=== PATIENT | male | born 1935 | race Caucasian/White ===

== ENCOUNTER 2016-10-23 18:26 | Emergency (ER) | payer OTHER, MEDICARE ==
[2016-10-23 18:57] LABS: ABSOLUTE BASOPHILS # (AUTO) 0.1 10^3/uL (0.0-0.2); ABSOLUTE EOSINOPHILS # (AUTO) 0.2 10^3/uL (0.0-0.6); ABSOLUTE LYMPHOCYTES (AUTO) 3.1 10^3/uL (0.5-4.7); ABSOLUTE MONOCYTES (AUTO) 0.5 10^3/uL (0.1-1.4); ABSOLUTE NEUT (AUTO) 2.1 10^3/uL (1.7-8.2); BASOPHILS % (AUTO) 0.9 % (0-2); EOSINOPHILS % (AUTO) 3.5 % (0-6); HEMATOCRIT 38.5 % (37.9-51.0); HEMOGLOBIN 13.2 g/dL (13.5-17.0); HGB HCT DIFFERENCE 1.1; LYMPHOCYTES % (AUTO) 52.7 % (13-45); MEAN CORPUSCULAR HEMOGLOBIN 36.9 pg (27.0-33.4); MEAN CORPUSCULAR HGB CONC 34.3 g/dL (32.0-36.0); MEAN CORPUSCULAR VOLUME 108 fl (80-97); MONOCYTES % (AUTO) 7.9 % (3-13); RED BLOOD COUNT 3.57 10^6/uL (4.35-5.55); RED CELL DISTRIBUTION WIDTH 15.9 % (11.5-14.0); WHITE BLOOD COUNT 5.9 10^3/uL (4.0-10.5)
[2016-10-23 19:10] LABS: ALANINE AMINOTRANSFERASE 18 U/L (21-72); ALBUMIN 3.4 g/dL (3.5-5.0); ALKALINE PHOSPHATASE 70 U/L (38-126); ANION GAP 11 (5-19); ASPARTATE AMINO TRANSFERASE 18 U/L (17-59); BILIRUBIN,TOTAL 0.3 mg/dL (0.2-1.3); BLOOD UREA NITROGEN 21 mg/dL (7-20); CALCIUM 8.6 mg/dL (8.4-10.2); CARBON DIOXIDE 22 mmol/L (22-30); CHLORIDE 114 mmol/L (98-107); CREATININE RESULT 1.02 mg/dL (0.52-1.25); GLUCOSE 90 mg/dL (75-110); LIPASE 209.7 U/L (23-300); SODIUM 146.6 mmol/L (137-145)
[2016-10-23 21:00] LABS: APPEARANCE,URINE CLEAR; BILIRUBIN,URINE NEGATIVE (NEGATIVE); GLUCOSE, URINE NEGATIVE (NEGATIVE); KETONES,URINE NEGATIVE (NEGATIVE); LEUKOCYTE ESTERASE,URINE NEGATIVE (NEGATIVE); NITRITE,URINE NEGATIVE (NEGATIVE); PROTEIN,URINE NEGATIVE (NEGATIVE); URINE SPECIFIC GRAVITY 1.013
[2016-10-23] MEDS ORDERED: NORMAL SALINE 1000 ML 1,000 ML IV ONE (21:09)
--- NOTE | 2016-10-23 21:15 | ER Document Report ---
ED General - General Chief Complaint: Abdominal Pain Stated Complaint: WEAKNESS Notes: Patient is an 81-year-old male with past medical history of prior GI bleeds, hypertension, hyperlipidemia, COPD who presents by EMS with concerns of generalized weakness. Patient himself states "I don't know why the hell I am here. I feel totally fine and want to get out of here". He states that he has had dark stools for the past 1 month and that this is not new or different today. States he may have felt slightly weak earlier today but that this did resolve spontaneously. Nothing worsens the symptoms. He denies any chest pain , shortness of breath, nausea, vomiting, abdominal pain, headache or neck pain. He has not seen his primary care doctor regarding today's concerns. TRAVEL OUTSIDE OF THE [place] IN LAST 30 DAYS: No - Related Data Allergies/Adverse Reactions: No Known Allergies Allergy (Verified 10/23/16 18:43) Past Medical History - General Information source: Patient - Social History Smoking Status: Former Smoker Chew tobacco use (# tins/day): No Frequency of alcohol use: Occasional Drug Abuse: None Lives with: Family Family History: Reviewed & Not Pertinent Patient has suicidal ideation: No Patient has homicidal ideation: No - Past Medical History Cardiac Medical History: Reports: Hx DVT - LLE, Hx Heart Attack, Hx Hypertension Neurological Medical History: Reports: Hx Cerebrovascular Accident Renal/ Medical History: Denies: Hx Peritoneal Dialysis Musculoskeltal Medical History: Reports Hx Arthritis Psychiatric Medical History: Denies: Hx Depression Past Surgical History: Reports: Hx Abdominal Surgery, Hx Cardiac Surgery - Cardiac Stent, Hx Open Heart Surgery, Hx Orthopedic Surgery - Immunizations Hx Diphtheria, Pertussis, Tetanus Vaccination: Yes - Unknown Review of Systems - Review of Systems Notes: Constitutional: Negative for fever. HENT: Negative for sore throat. Eyes: Negative for visual changes. Cardiovascular: Negative for chest pain. Respiratory: Negative for shortness of breath. Gastrointestinal: Negative for abdominal pain, vomiting or diarrhea. Genitourinary: Negative for dysuria. Musculoskeletal: Negative for back pain. Skin: Negative for rash. Neurological: Negative for headaches, weakness or numbness. 10 point ROS negative except as marked above and in HPI. Physical Exam - Vital signs Vitals: Temp Resp BP 97.7 F 97 H 122/68 10/23/16 18:30 10/23/16 18:30 10/23/16 18:30 Interpretation: Normal Notes: PHYSICAL EXAMINATION: GENERAL: Well-appearing, well-nourished and in no acute distress. HEAD: Atraumatic, normocephalic. EYES: Pupils equal round and reactive to light, extraocular movements intact, sclera anicteric, conjunctiva are normal. ENT: nares patent, oropharynx clear without exudates. Moist mucous membranes. NECK: Normal range of motion, supple without lymphadenopathy LUNGS: Breath sounds clear to auscultation bilaterally and equal. No wheezes rales or rhonchi. HEART: Regular rate and rhythm without murmurs ABDOMEN: Soft, nontender, normoactive bowel sounds. No guarding, no rebound. No masses appreciated. Rectal: No gross blood or melena EXTREMITIES: Normal range of motion, no pitting or edema. No cyanosis. NEUROLOGICAL: Face symmetric. Tongue protrudes midline. Extraocular motions intact. Pupils are 2 mm and equally reactive. Normal speech, normal gait. 5 out of 5 strength in both the distal and proximal upper and lower extremities bilaterally. Sensation is grossly intact throughout. Finger to nose testing normal. Pronator drift normal. PSYCH: Normal mood, normal affect. SKIN: Warm, Dry, normal turgor, no rashes or lesions noted. Course - Re-evaluation Re-evalutation: 10/23/16 21:11 Patient presents with concerns of generalized weakness and dark stool that he states been ongoing for more than a month. Patient himself has very jovial during exam stating "I don't want to be here and I am mad as hell that my son called 911". Patient himself states that he feels completely fine at this time and denies any complaints. States the black stools are not new today. His son contacted him on his cell phone and I did speak to him at length. The son gives a report of the patient having left-sided facial droop and apparent left- sided weakness. The patient denies this and states that the son "is a liar and makes things up all the time". The EMS report obtained likewise does not note any focal deficits, facial droop, and states a stroke exam was performed immediately upon their arrival which was negative. This seems to support the patient's report that he just felt a little weak earlier today but feels totally fine at this time. His physical exam including a neurologic exam is unremarkable. His initial laboratories likewise are unremarkable and his hemoglobin is at his baseline. A rectal exam performed at the bedside does not show any melena or hematochezia. Patient's initial blood pressures were noted to have occasional dips in the 90s although here in the emergency department when I checked the blood pressure at the bedside myself with proper positioning of the cuff his pressure was 136 on 96. Patient himself states he does not want stay in the emergency department would like to go home. His medical screening labs today as well as examination and evaluation did not suggest any acute life-threatening diagnosis at this time. I do not suspect ACS , acute pulmonary was, aortic dissection, acute CVA or TIA, or an acute GI bleed based on history and evaluation. At this time will discharge with return precautions and follow-up recommendations. Verbal discharge instructions given a the bedside and opportunity for questions given. Medication warnings reviewed. Patient is in agreement with this plan and has verbalized understanding of return precautions and the need for primary care follow-up in the next 24-72 hours. - Vital Signs Vital signs: Temp Pulse Resp BP Pulse Ox 98.4 F 72 20 124/78 96 10/23/16 22:47 10/23/16 22:47 10/23/16 22:47 10/23/16 22:47 10/23/16 22:47 - Laboratory Result Diagrams: 10/23/16 18:41 10/23/16 18:41 Laboratory results interpreted by me: 10/23/16 10/23/16 10/23/16 18:41 18:41 20:35 RBC 3.57 L Hgb 13.2 L MCV 108 H MCH 36.9 H RDW 15.9 H Plt Count 125 L Seg Neutrophils % 35.0 L Lymphocytes % 52.7 H Sodium 146.6 H Chloride 114 H BUN 21 H ALT 18 L Total Protein 6.0 L Albumin 3.4 L Urine Blood SMALL H Urine Urobilinogen 2.0 H Discharge - Discharge Clinical Impression: Generalized weakness Condition: Good Disposition: HOME, SELF-CARE Additional Instructions: You were seen today for generalized weakness. All of your labs today are normal including a blood count. Your stool does not contain any blood. Your symptoms today based on the EMS report and your evaluation are not consistent with a stroke or a mini stroke. Please follow-up with your primary care doctor to earliest ability. Return if you have any new or worsening symptoms that are worrisome to you including weakness, numbness, passing out, chest pain or shortness of breath. Referrals: TANYA LY MD [Primary Care Provider] - Follow up tomorrow
[2016-10-23 22:49] VITALS: BP 124/78
== END 2016-10-23 22:52 | disposition home or self-care (01) ==
LOC: ER 18:26
DX: R53.1 Weakness (principal); R10.9 Unspecified abdominal pain; E78.5 Hyperlipidemia, unspecified; I10 Essential (primary) hypertension; J44.9 Chronic obstructive pulmonary disease, unspecified; Z87.891 Personal history of nicotine dependence
CPT/HCPCS: 99285; 96360; 36415; 83690; 85025; 82272; 80053; 81001; J7030

== ENCOUNTER 2016-11-23 19:11 | Inpatient (IN) | payer OTHER, MEDICARE ==
[2016-11-23] MEDS ORDERED: NORMAL SALINE 1000 ML 1,000 ML IV ONE (19:46)
[2016-11-23] MEDS ORDERED: IPRATROPIUM/ALBUTEROL 0.5-2.5 MG/3 ML AMPUL NEB ONE ×2 (19:55→22:12)
--- NOTE | 2016-11-23 20:05 | ER Document Report ---
ED General - General Mode of Arrival: Medic Information source: Patient TRAVEL OUTSIDE OF THE [place] IN LAST 30 DAYS: No - HPI Patient complains to provider of: unwell Onset: This afternoon Associated symptoms: Other - See above <SHAI SALAS - Last Filed: 11/23/16 23:11> <MARIELENA MENDEZ - Last Filed: 11/24/16 03:30> - General Chief Complaint: Other Stated Complaint: DOESN'T FEEL WELL Notes: Patient is an 81 year old male who presents to the emergency department via EMS after feeling unwell earlier today. Patient reports that he doesn't really know why he is here and that he has no complaints of pain. Patient states that he has had a cough and has pain when he urinates. Patient denies loss of consciousness, fever, chest pain, and shortness of breath. Patient also states that he has not had a flu shot or pneumonia vaccine this year. EMS report patient's blood pressure was at 80/48 en route. (SHAI SALAS) - Related Data Allergies/Adverse Reactions: No Known Allergies Allergy (Verified 10/23/16 18:43) Past Medical History - General Information source: Patient - Social History Smoking Status: Current Some Day Smoker - cigars Family History: Reviewed & Not Pertinent - Past Medical History Cardiac Medical History: Reports: Hx DVT - LLE, Hx Heart Attack, Hx Hypertension Neurological Medical History: Reports: Hx Cerebrovascular Accident Musculoskeltal Medical History: Reports Hx Arthritis Past Surgical History: Reports: Hx Abdominal Surgery, Hx Cardiac Surgery - Cardiac Stent, Hx Open Heart Surgery, Hx Orthopedic Surgery - Immunizations Hx Diphtheria, Pertussis, Tetanus Vaccination: Yes - Unknown <SHAI SALAS - Last Filed: 11/23/16 23:11> Review of Systems - Review of Systems Constitutional: denies: Fever EENT: No symptoms reported Cardiovascular: denies: Chest pain Respiratory: See HPI, Cough. denies: Short of breath Gastrointestinal: No symptoms reported Genitourinary: See HPI, Dysuria Male Genitourinary: No symptoms reported Musculoskeletal: No symptoms reported Skin: No symptoms reported Hematologic/Lymphatic: No symptoms reported Neurological/Psychological: denies: Lost consciousness -: Yes All other systems reviewed and negative <SHAI SALAS - Last Filed: 11/23/16 23:11> Physical Exam - General General appearance: Appears well, Alert, Other - Smells of EtOH - HEENT Head: Normocephalic, Atraumatic - Respiratory Respiratory status: No respiratory distress Chest status: Nontender Breath sounds: Decreased air movement - at bases bilaterally, Wheezing Chest palpation: Normal - Cardiovascular Rhythm: Regular Heart sounds: Normal auscultation Murmur: No - Back Back: Normal, Nontender - Extremities General upper extremity: Normal inspection General lower extremity: Normal inspection - Neurological Neuro grossly intact: Yes Cognition: Normal Orientation: AAOx4 Mary Coma Scale Eye Opening: Spontaneous Mary Coma Scale Verbal: Oriented [place] Coma Scale Motor: Obeys Commands Mary Coma Scale Total: 15 Speech: Normal - Psychological Associated symptoms: Normal affect, Normal mood - Skin Skin Temperature: Warm Skin Moisture: Dry Skin Color: Normal <SHAI SALAS - Last Filed: 11/23/16 23:11> Course - Laboratory Result Diagrams: 11/23/16 21:00 11/23/16 21:00 - Consults Hospitalist Time consulted: 23:09 - Discussed admission of patient with <SHAI SALAS - Last Filed: 11/23/16 23:11> - Laboratory Result Diagrams: 11/23/16 21:00 11/23/16 21:00 - Diagnostic Test Radiology reviewed: Reports reviewed - EKG Interpretation by Me Rate: Normal Rhythm: NSR <MARIELENA MENDEZ - Last Filed: 11/24/16 03:30> - Re-evaluation Re-evalutation: 11/23/16 Patient with no history of COPD or asthma presents with cough, wheezing, and hypotension. Symptoms and exam are consistent with pneumonia. Patient will be admitted and started on antibiotics. Has responded well to fluids, DuoNeb, and Solu-Medrol; however the patient cannot go home at this time because of orthostatic hypotension. Understands agrees with plan. Stable time of admission. (MARIELENA MENDEZ) - Vital Signs Vital signs: Temp Pulse Resp BP Pulse Ox 97.5 F 103 H 16 133/69 H 92 11/24/16 01:00 11/23/16 19:17 11/24/16 02:00 11/24/16 02:00 11/24/16 02:00 - Laboratory Laboratory results interpreted by me: 11/23/16 11/23/16 11/23/16 21:00 21:00 21:00 RBC 3.61 L Hgb 13.3 L MCV 108 H MCH 36.8 H RDW 14.4 H Plt Count 117 L Sodium 145.3 H Chloride 111 H Carbon Dioxide 18 L BUN 23 H Glucose 126 H POC Glucose Lactic Acid 4.4 H ALT 19 L Total Protein 6.2 L Urine Urobilinogen 11/23/16 11/23/16 21:17 22:20 RBC Hgb MCV MCH RDW Plt Count Sodium Chloride Carbon Dioxide BUN Glucose POC Glucose 116 H Lactic Acid ALT Total Protein Urine Urobilinogen 2.0 H Critical Care Note - Critical Care Note Total time excluding time spent on procedures (mins): 35 - evaluation and management of hypotension, mild respiratory distress, multiple re-evaluations, coordination of admission <MARIELENA MENDEZ - Last Filed: 11/24/16 03:30> Discharge <SHAI SALAS - Last Filed: 11/23/16 23:11> - Discharge Admitting Provider: [facility] Unit Admitted: [facility] <MARIELENA MENDEZ - Last Filed: 11/24/16 03:30> - Discharge Clinical Impression: Alcohol abuse, Respiratory distress, Bronchospasm Hypotension Qualifiers: Hypotension type: unspecified hypotension type Qualified Code(s): I95.9 - Hypotension, unspecified Pneumonia Qualifiers: Pneumonia type: due to unspecified organism Laterality: bilateral Lung location : lower lobe of lung Qualified Code(s): J18.9 - Pneumonia, unspecified organism Condition: Stable Disposition: ADMITTED INPATIENT Scribe Attestation: 11/24/16 03:30 ` I personally performed the services described in the documentation, reviewed and edited the documentation which was dictated to the scribe in my presence, and it accurately records my words and actions. (MARIELENA MENDEZ) Scribe Documentation - Scribe Written by Morgan:: morgan Kelly, 11/23/162014 acting as scribe for :: Kay <SHAI SALAS - Last Filed: 11/23/16 23:11>
[2016-11-23] MEDS ORDERED: METHYLPREDNISOLONE INJ 125 MG/2 ML SDV IV ONE (21:15)
[2016-11-23 21:21] LABS: ABSOLUTE BASOPHILS # (AUTO) 0.1 10^3/uL (0.0-0.2); ABSOLUTE EOSINOPHILS # (AUTO) 0.1 10^3/uL (0.0-0.6); ABSOLUTE MONOCYTES (AUTO) 0.7 10^3/uL (0.1-1.4); ABSOLUTE NEUT (AUTO) 3.6 10^3/uL (1.7-8.2); BASOPHILS % (AUTO) 0.8 % (0-2); EOSINOPHILS % (AUTO) 1.6 % (0-6); HEMATOCRIT 38.8 % (37.9-51.0); HEMOGLOBIN 13.3 g/dL (13.5-17.0); HGB HCT DIFFERENCE 1.1; LYMPHOCYTES % (AUTO) 40.5 % (13-45); MEAN CORPUSCULAR HEMOGLOBIN 36.8 pg (27.0-33.4); MEAN CORPUSCULAR HGB CONC 34.3 g/dL (32.0-36.0); MEAN CORPUSCULAR VOLUME 108 fl (80-97); MONOCYTES % (AUTO) 8.9 % (3-13); RED BLOOD COUNT 3.61 10^6/uL (4.35-5.55); RED CELL DISTRIBUTION WIDTH 14.4 % (11.5-14.0); SEGMENTED NEUTROPHILS % (AUTO) 48.2 % (42-78); WHITE BLOOD COUNT 7.4 10^3/uL (4.0-10.5)
[2016-11-23 21:42] LABS: ALANINE AMINOTRANSFERASE 19 U/L (21-72); ALBUMIN 3.5 g/dL (3.5-5.0); ALCOHOL 219 mg/dL (NONE DETECTED); ALKALINE PHOSPHATASE 68 U/L (38-126); ANION GAP 16 (5-19); ASPARTATE AMINO TRANSFERASE 21 U/L (17-59); BILIRUBIN,DIRECT 0.2 mg/dL (0.0-0.4); BILIRUBIN,TOTAL 0.3 mg/dL (0.2-1.3); BLOOD UREA NITROGEN 23 mg/dL (7-20); CALCIUM 8.8 mg/dL (8.4-10.2); CARBON DIOXIDE 18 mmol/L (22-30); CHLORIDE 111 mmol/L (98-107); CREATINE KINASE 77 U/L (55-170); CREATININE RESULT 1.12 mg/dL (0.52-1.25); GLUCOSE 126 mg/dL (75-110); POTASSIUM 3.8 mmol/L (3.6-5.0); SODIUM 145.3 mmol/L (137-145); TOTAL PROTEIN 6.2 g/dL (6.3-8.2)
[2016-11-23 21:43] LABS: PROTHROMBIN TIME 13.2 SEC (11.4-15.4)
[2016-11-23 22:05] LABS: CREATINE KINASE MB 1.21 ng/mL (<4.55)
[2016-11-23 22:06] LABS: TROPONIN I < 0.012 ng/mL
[2016-11-23 22:37] LABS: APPEARANCE,URINE SLIGHTLY-CLOUDY; BILIRUBIN,URINE NEGATIVE (NEGATIVE); GLUCOSE, URINE NEGATIVE (NEGATIVE); KETONES,URINE NEGATIVE (NEGATIVE); LEUKOCYTE ESTERASE,URINE NEGATIVE (NEGATIVE); NITRITE,URINE NEGATIVE (NEGATIVE); PROTEIN,URINE NEGATIVE (NEGATIVE); URINE SPECIFIC GRAVITY 1.017
[2016-11-23] MEDS ORDERED: CEFTRIAXONE 1 GM/D5W RTU 50 ML IV ONE (22:47)
[2016-11-23] MEDS ORDERED: AZITHROMYCIN INJ 500 MG VIAL IV ONE (22:47)
[2016-11-23] MEDS ORDERED: FOLIC ACID 1 MG TABLET PO ONE (23:09)
[2016-11-23] MEDS ORDERED: THIAMINE HCL 100 MG TABLET PO ONE (23:09)
[2016-11-24 00:08] LABS: VENOUS BLOOD BASE EXCESS -7.7 mmol/L; VENOUS BLOOD HCO3 18.3 mmol/L (20-32); VENOUS BLOOD PCO2 39.1 mmHg (35-63); VENOUS BLOOD PH 7.29 (7.30-7.42)
[2016-11-24] MEDS ORDERED: LORAZEPAM 1 MG TABLET PO PRN (01:10)
[2016-11-24] MEDS ORDERED: GUAIFENESIN SYRP 200 MG/10 ML UDC PO PRN (01:16)
[2016-11-24] MEDS ORDERED: ALBUTEROL SULFATE 0.083% NEB 2.5 MG/3 ML AMPUL NEB PRN (01:16)
--- NOTE | 2016-11-24 01:44 | PDOC H&P ---
History of Present Illness Admission Date/PCP: 11/23/16 23:18 PCP none Patient complains of: don't feel well History of Present Illness: HEIDI HEREDIA JR is a 81 year old male, long-term cigar smoker, long- term alcohol dependency, long-term noncompliance of medications, underlying coronary artery disease, status post stent implant, with personal history of DVT and pulmonary embolus, along with eczema, easy bruising, arthritis, borderline diabetes mellitus by his description, history of nephrolithiasis, and prior stroke, without residual after effects, who presents to the emergency room for evaluation of above complaint. Patient has been discussed with emergency room physician who evaluated the patient. Patient is oriented only to the fact that he is in a hospital. Did not know which specific hospital. Did not know what year. Was initially hypotensive at the scene, EMS reported a systolic pressure of 80. Has been normotensive since coming here. Denies pain, nausea vomiting, diarrhea or dysuria. However, does describe recent subjective fever, along with a productive cough. Denies any known chronic pulmonary disease such as asthma or COPD. Has not had a flu vaccination this year. Currently resting quietly, without specific complaints.. Laboratory results are listed in [facility] and are reviewed. X-ray summary results are listed below, with full report(s) reviewed. . EKG reviewed. And compared to prior tracing from January 22 of last year. Social history/personal habits: . Lives with stepson. Several cigars a day. fifth of whiskey every week. Denies illicit drug use. Allergies/adverse reactions NKDA. Home medications Home medications initially autopopulated into [employer] may not accurately reflect patient's true medications, dosages, and/or frequencies. Admittedly non-Compliant with medications. Unfortunately, patient uncertain of medications/dosages/frequencies. REVIEW OF SYSTEMS: Constitutional: See history and present illness. Eyes: Wears glasses. ENT: No swallowing problems or complaints. No hearing problems or complaints. Pulmonary: See history and present illness. Cardiovascular: No current complaints, including chest pain. Gastrointestinal: No current complaints, including nausea or vomiting. Skin: No current complaints, including rashes. Hematologic: Easy bruising. Neurologic: No current complaints, including numbness or tingling. Musculoskeletal: Joint pain from arthritis. Psychiatric: No current complaints, including anxiety or depression. Endocrine: No current complaints, including polyuria. Genitourinary: No current complaints, including dysuria. PHYSICAL EXAMINATION: 6 feet tall. 106.6 kg. BMI 31.9 kg/m. Blood pressure 133/67. Pulse 97 and regular. 97% saturation on room air. Respirations are 25 and unlabored. Temperature 97.0. Slightly overweight otherwise well-nourished well-developed elderly male who appears a bit younger than his stated age. Pleasant awake alert and cooperative. No obvious distress. Playing with his cell phone. Skin is warm and dry. No grossly obvious evidence of rash in areas of skin examined. No subcutaneous nodules palpated. ENT: Hearing grossly normal to normal conversation. Tongue midline on protrusion pink and slightly tacky. Eyes: No scleral icterus. Pupils equal and reactive to light at 4 mm. [place] conjunctivae. Neck is supple and nontender to gentle active range of motion and palpation. Midline trachea. No palpable thyroid nodule mass enlargement or tenderness. Lymphatic: No palpable cervical or clavicular nodes. Neck and lymphatic exams limited by patient body habitus. Psychiatric: Poor insight into acute and chronic medical issues. See history and present illness.. Lungs: Auscultation reveals equal breath sounds bilaterally. No use of accessory respiratory muscles. Mildly coarse breath sounds diffusely bilaterally. Possibly brief expiratory wheezing bilaterally. Cardiovascular: Heart regular rate and rhythm, without gallop murmur or rub. No carotid or abdominal aortic bruits. No ankle or pedal edema. Faintly palpable dorsalis pedis pulses. Abdomen: soft, slightly obese, nontender with positive bowel sounds. Unable to adequately evaluate abdomen for masses or organomegaly due to body habitus. Extremities: Feet are warm and dry. No calf tenderness to compression. No grossly obvious visual evidence of calf swelling. Gentle manipulation of lower extremities fails to reveal any obvious evidence of injury or instability to knees hips or ankles. Neurologic: Moves upper extremities grossly normally. Patellar reflexes absent. Absent Babinski. Light touch is intact at feet. Dorsiflexion and plantarflexion of feet 5 / 5 and symmetric. Past Medical History Cardiac Medical History: Reports: DVT - LLE, Myocardial Infarction, Hypertension , Pulmonary Embolism Denies: Hyperlipidema Pulmonary Medical History: Denies: Asthma, Chronic Obstructive Pulmonary Disease (COPD), Sleep Apnea EENT Medical History: Reports: Eyes - Glasses Denies: Ears, Throat Neurological Medical History: Reports: Ischemic CVA - No residual after effects. Denies: Hemorrhagic CVA, Seizures Endocrine Medical History: Reports: Diabetes Mellitus Type 2 - Borderline diabetes mellitus, without necessary medications, per patient. Denies: Diabetes Mellitus Type 1, Hyperthyroidism, Hypothyroidism Renal/ Medical History: Reports: None GI Medical History: Denies: Cirrhosis, Gastroesophageal Reflux Disease, Hepatitis, Peptic Ulcer Disease Musculoskeltal Medical History: Reports: Arthritis Skin Medical History: Reports: None Psychiatric Medical History: Reports: Alcohol Dependency, Tobacco Dependency Denies: Depression, General Anxiety Disorder, Substance Abuse Hematology: Reports: Other - Easy bruising Infectious Medical History: Denies: Clostridium Difficile, Hepatitis B, Hepatitis C, Methicillin- Resistant Staph Aureus Past Surgical History Past Surgical History: Reports: Orthopedic Surgery, Vascular Surgery - AAA repair Social History Information Source: Patient, Emergency Med Personnel, [facility] Records Lives with: Family - Rosette Smoking Status: Current Every Day Smoker - cigars Frequency of Alcohol Use: Heavy Hx Recreational Drug Use: No Drugs: None Hx Prescription Drug Abuse: No - Advance Directive Resuscitation Status: Full Code Surrogate healthcare decision maker:: Rosette Lynn Family History Family History: Reviewed & Not Pertinent Parental Family History Reviewed: Yes Children Family History Reviewed: Yes Sibling(s) Family History Reviewed.: Yes Medication/Allergy Home Medications: RX: Atorvastatin Calcium [Lipitor 10 mg Tablet] 10 mg PO QHS 11/24/16 RX: Butalbital/Acetaminophen [Butalbital-Acetaminophn 50-325] 1 cap PO Q6HP PRN 11/24/16 RX: Cyanocobalamin (Vitamin B-12) [Vitamin B-12] 1,000 mcg PO DAILY 11/24/16 RX: Finasteride [Proscar 5 mg Tablet] 5 mg PO DAILY 11/24/16 RX: Tamsulosin HCl [Flomax 0.4 mg Cap.sr] 0.4 mg PO DAILY 11/24/16 Azithromycin [Zithromax Tri-Esequiel] 500 mg PO DAILY #1 pkg 11/26/16 Cefdinir [Omnicef 300 mg Capsule] 1 cap PO BID #14 capsule 11/26/16 RX: Amlodipine Besylate [Norvasc 10 mg Tablet] 10 mg PO BID #60 tablet 11/26/16 RX: Lisinopril [Prinivil 10 mg Tablet] 10 mg PO Q12 #60 tablet 11/26/16 RX: Metoprolol Tartrate [Lopressor 50 mg Tablet] 50 mg PO Q12 #60 tablet RX: Multivitamin [Tab-A-Amado (Multiple Vitamin) Tablet] 1 tab PO DAILY tablet 11/26/16 RX: Prednisone [Deltasone 20 mg Tablet] 60 mg PO DAILY 5 Days 11/26/16 Allergies/Adverse Reactions: No Known Allergies Allergy (Verified 10/23/16 18:43) Physical Exam Vital Signs: Temp Pulse Resp BP Pulse Ox 97.5 F 103 H 25 H 140/80 H 94 11/24/16 01:00 11/23/16 19:17 11/24/16 00:30 11/24/16 00:30 11/24/16 00:30 Intake & Output 11/23/16 11/24/16 11/25/16 00:59 00:59 00:59 Weight 106.594 kg Results Laboratory Results: 11/23/16 23:50 VBG pH 7.29 L VBG pCO2 39.1 VBG HCO3 18.3 L VBG Base Excess -7.7 Impressions: Chest X-Ray 11/23/16 19:46 IMPRESSION: NO ACUTE RADIOGRAPHIC FINDING IN THE CHEST. Assessment & Plan - Diagnosis (1) Alcohol dependency Qualifiers: Substance use status: unspecified alcohol-induced disorder Qualified Code(s): F10.29 - Alcohol dependence with unspecified alcohol-induced disorder Is this a current diagnosis for this admission?: YesPlan: Daily multivitamin, folic acid, and thiamine. When necessary Ativan. (2) Alcohol intoxication Qualifiers: Complication of substance-induced condition: uncomplicated Qualified Code(s): F10.120 - Alcohol abuse with intoxication, uncomplicated Is this a current diagnosis for this admission?: Yes (3) COPD exacerbation Is this a current diagnosis for this admission?: YesPlan: Patient will be admitted under COPD exacerbation and suspected pneumonia protocol. Incentive spirometry twice a day. Scheduled DuoNeb's. PRN albuterol nebs daily prednisone. Prevacid for gastritis prophylaxis. Antibiotics will consist of intravenous Zithromax, along with Rocephin. I strongly encouraged patient to notify staff should patient feel that respiratory status is worsening. Patient is a full code. I have strongly encouraged patient not to get out of bed without notifying staff , , to avoid a fall with injury. Knee high SCDs for DVT prophylaxis, along with subcutaneous Lovenox considering that patient is admittedly noncompliant with his medications, which have consisted of Xarelto in the past. Impression and plans were discussed with patient, who concurs. Time spent in evaluation and management of patient: 63 minutes. (4) Pneumonia Qualifiers: Pneumonia type: due to unspecified organism Laterality: right Lung location: lower lobe of lung Qualified Code(s): J18.1 - Lobar pneumonia, unspecified organism Is this a current diagnosis for this admission?: Yes (5) CAD (coronary artery disease) Qualifiers: Coronary Disease-Associated Artery/Lesion type: [place] artery [place] vs. transplanted heart: [place] heart Associated angina: without angina Qualified Code(s): I25.10 - Atherosclerotic heart disease of [place] coronary artery without angina pectoris Is this a current diagnosis for this admission?: YesPlan: Resume home medications as appropriate once these have been determined and reviewed. (6) HTN (hypertension) Qualifiers: Hypertension type: essential hypertension Qualified Code(s): I10 - Essential (primary) hypertension Is this a current diagnosis for this admission?: YesPlan: Resume home medications as appropriate once these have been determined and reviewed. (7) History of DVT of lower extremity Is this a current diagnosis for this admission?: YesPlan: Resume home medications as appropriate once these have been determined and reviewed. Patient obviously not the best candidate for systemic anticoagulation , given his chronic alcohol abuse. (8) History of pulmonary embolism Is this a current diagnosis for this admission?: Yes (9) Noncompliance Is this a current diagnosis for this admission?: Yes (10) Tobacco dependency Is this a current diagnosis for this admission?: YesPlan: When necessary nicotine patch. - Inpatient Certification Based on my medical assessment, after consideration of the patient's comorbidities, presenting symptoms, or acuity I expect that the services needed warrant INPATIENT care.: Yes I certify that my determination is in accordance with my understanding of Medicare's requirements for reasonable and necessary INPATIENT services [42 CFR 412.3e].: Yes Medical Necessity: Significant Comorbidiites Make Outpatient Treatment Too Risky , Need Close Monitoring Due to Risk of Patient Decompensation, Need For Continuous Telemetry Monitoring, Need for Nebulizer Therapy and Monitoring of Response, Need for IV Antibiotics, Risk of Complication if Not Cared For in Hospital, Risk of Diagnosis Which Will Require Inpatient Eval/Care/Monitoring Post Hospital Care: D/C or Transfer Summary
[2016-11-24] MEDS ORDERED: NICOTINE 7 MG/24 HR PATCH.TD24 TD PRN (01:45)
[2016-11-24 03:36] LABS: ABSOLUTE LYMPHOCYTES (AUTO) 0.6 10^3/uL (0.5-4.7); ABSOLUTE NEUT (AUTO) 3.5 10^3/uL (1.7-8.2); BASOPHILS % (AUTO) 0.5 % (0-2); EOSINOPHILS % (AUTO) 0.2 % (0-6); HEMATOCRIT 41.8 % (37.9-51.0); HEMOGLOBIN 14.3 g/dL (13.5-17.0); HGB HCT DIFFERENCE 1.1; MEAN CORPUSCULAR HEMOGLOBIN 36.7 pg (27.0-33.4); MEAN CORPUSCULAR HGB CONC 34.1 g/dL (32.0-36.0); MEAN CORPUSCULAR VOLUME 108 fl (80-97); MONOCYTES % (AUTO) 1.1 % (3-13); RED BLOOD COUNT 3.88 10^6/uL (4.35-5.55); RED CELL DISTRIBUTION WIDTH 14.4 % (11.5-14.0); SEGMENTED NEUTROPHILS % (AUTO) 84.2 % (42-78); WHITE BLOOD COUNT 4.1 10^3/uL (4.0-10.5)
[2016-11-24 03:41] LABS: ANION GAP 18 (5-19); BLOOD UREA NITROGEN 19 mg/dL (7-20); CARBON DIOXIDE 15 mmol/L (22-30); CHLORIDE 114 mmol/L (98-107); CREATININE RESULT 0.87 mg/dL (0.52-1.25); GLUCOSE 144 mg/dL (75-110); MAGNESIUM 1.9 mg/dL (1.6-2.3); POTASSIUM 4.2 mmol/L (3.6-5.0); SODIUM 147.1 mmol/L (137-145)
[2016-11-24] MEDS: 1/2 NORMAL SALINE 1,000 ML IV PRN ×2 (04:40→21:10)
[2016-11-24] MEDS: LANSOPRAZOLE 30 MG TAB.RAP.DR PO SCH (06:14)
--- NOTE | 2016-11-24 08:13 | EKG REPORT ---
SEVERITY:- ABNORMAL ECG - SINUS RHYTHM W FIRST DEGREE AVB [id number] MS VENTRICULAR TRIGEMINY LEFT BUNDLE BRANCH BLOCK : Confirmed by: Kaushal Schwarz MD 24-Nov-2016 08:13:03
[2016-11-24] MEDS: IPRATROPIUM/ALBUTEROL 0.5-2.5 MG/3 ML AMPUL NEB SCH ×3 (09:00→20:31)
[2016-11-24 09:41] LABS: ANION GAP 14 (5-19); BLOOD UREA NITROGEN 19 mg/dL (7-20); CALCIUM 8.9 mg/dL (8.4-10.2); CARBON DIOXIDE 17 mmol/L (22-30); CHLORIDE 109 mmol/L (98-107); CREATININE RESULT 0.75 mg/dL (0.52-1.25); GLUCOSE 330 mg/dL (75-110); POTASSIUM 4.4 mmol/L (3.6-5.0); SODIUM 139.9 mmol/L (137-145)
[2016-11-24] MEDS: THIAMINE HCL 100 MG TABLET PO SCH (09:49)
[2016-11-24] MEDS: MULTIVITAMIN TABLET PO SCH (09:49)
[2016-11-24] MEDS: PREDNISONE 20 MG TABLET PO SCH (09:49)
[2016-11-24] MEDS: FOLIC ACID 1 MG TABLET PO SCH (09:49)
[2016-11-24] MEDS: ENOXAPARIN SODIUM INJ 40 MG/0.4 ML DISP.SYRIN SUBCUT SCH (09:50)
[2016-11-24 10:46] LABS: FOLATE 10.6 ng/mL (>2.76)
[2016-11-24] MEDS ORDERED: FINASTERIDE 5 MG TABLET PO SCH (12:00)
[2016-11-24] MEDS ORDERED: TAMSULOSIN HCL 0.4 MG CAP.SR.24H PO ONE (13:00)
[2016-11-24] MEDS ORDERED: METOPROLOL TARTRATE 50 MG TABLET PO ONE (13:00)
[2016-11-24] MEDS ORDERED: LISINOPRIL 10 MG TABLET PO ONE (13:00)
[2016-11-24] MEDS ORDERED: FINASTERIDE 5 MG TABLET PO ONE (13:00)
[2016-11-24] MEDS: ACETAMINOPHEN 325 MG TABLET PO PRN ×2 (13:11→19:53)
--- NOTE | 2016-11-24 13:32 | PDOC PROGRESS REPORT ---
Subjective Progress Note for:: 11/24/16 Subjective:: Reason for visit: Community acquired pneumonia, COPD exacerbation Hospital course: Per H&P "HEIDI HEREDIA JR is a 81 year old male, long- term cigar smoker, long-term alcohol dependency, long-term noncompliance of medications, underlying coronary artery disease, status post stent implant, with personal history of DVT and pulmonary embolus, along with eczema, easy bruising, arthritis, borderline diabetes mellitus, by his description, history of nephrolithiasis, and prior stroke, without residual after effects, who presents to the emergency room for evaluation of above complaint. Patient has been discussed with emergency room physician who evaluated the patient. Patient is oriented only to the fact that he is in a hospital. Did not know which specific hospital. Did not know what year. Was initially hypotensive at the scene, EMS reported a systolic pressure of 80. Has been normotensive since coming here. Denies pain, nausea vomiting, diarrhea or dysuria. However, does describe recent subjective fever, along with a productive cough. Denies any known chronic pulmonary disease such as asthma or COPD. Has not had a flu vaccination this year. Currently resting quietly, without specific complaints. " He was admitted to a monitored bed and started on Rocephin and Zithromax for community-acquired pneumonia, systemic steroids for COPD exacerbation with scheduled nebulizers and supplemental O2. Subjective: He denies chest pain, palpitations, fever, chills, nausea, vomiting. He continues to complain of cough productive of creamy white phlegm. ROS: per HPI plus a total of 10 systems reviewed, pertinent positives and negatives noted above, remaining systems negative. Physical Exam Vital Signs: Temp Pulse Resp BP Pulse Ox 97.9 F 122 H 16 175/83 H 96 11/24/16 08:26 11/24/16 08:26 11/24/16 09:01 11/24/16 09:00 11/24/16 09:01 Intake & Output 11/23/16 11/24/16 11/25/16 06:59 06:59 06:59 Output Total 325 Balance -325 EXAM GENERAL: NAD; appears stated age: well developed, well nourished; no obese; alert and oriented to person, place, time, situation HEENT: normocephalic, atraumatic; no conjunctival injection, no scleral icterus ; oral mucosa moist; RESPIRATORY: no accessory muscle use, no increased WOB, good air entry bilaterally; no rales, rhonchi; bilateral inspiratory crackles & wheezes, CARDIO: no JVD; RRR; soft systolic murmur; tachycardia GI: soft; nondistended; normal bowel sounds; no rebound, rigidity, guarding; nontender VASCULAR: no carotid bruit; no abdominal bruit; no pallor; 2+ radial, DP pulse ; normal capillary refill EXTREMITIES: no calf tender; no palpable cords in calf; no clubbing, cyanosis , pedal edema PSYCH: normal affect, normal mood SKIN: warm; moist; no petechiae; no telengectasias; no jaundice; no rash Results Laboratory Results: 11/24/16 03:20 11/24/16 09:01 11/24/16 11/24/16 11/24/16 01:22 03:20 03:20 WBC 4.1 RBC 3.88 L Hgb 14.3 Hct 41.8 MCV 108 H MCH 36.7 H MCHC 34.1 RDW 14.4 H Plt Count 115 L Seg Neutrophils % 84.2 H Lymphocytes % 14.0 Monocytes % 1.1 L Eosinophils % 0.2 Basophils % 0.5 Absolute Neutrophils 3.5 Absolute Lymphocytes 0.6 Absolute Monocytes 0.0 L Absolute Eosinophils 0.0 Absolute Basophils 0.0 Sodium 147.1 H Potassium 4.2 Chloride 114 H Carbon Dioxide 15 L Anion Gap 18 BUN 19 Creatinine 0.87 Est GFR ( Amer) > 60 Est GFR (Non-Af Amer) > 60 Glucose 144 H Lactic Acid 5.3 H Calcium 9.0 Magnesium 1.9 Vitamin B12 Folate TSH 11/24/16 11/24/16 11/24/16 03:20 09:01 09:01 WBC RBC Hgb Hct MCV MCH MCHC RDW Plt Count Seg Neutrophils % Lymphocytes % Monocytes % Eosinophils % Basophils % Absolute Neutrophils Absolute Lymphocytes Absolute Monocytes Absolute Eosinophils Absolute Basophils Sodium 139.9 Potassium 4.4 Chloride 109 H Carbon Dioxide 17 L Anion Gap 14 BUN 19 Creatinine 0.75 Est GFR ( Amer) > 60 Est GFR (Non-Af Amer) > 60 Glucose 330 H Lactic Acid Calcium 8.9 Magnesium Vitamin B12 768.0 Folate 10.60 TSH 1.25 Labs reviewed, anion gap metabolic acidosis Impressions: Chest X-Ray 11/23/16 19:46 IMPRESSION: NO ACUTE RADIOGRAPHIC FINDING IN THE CHEST. Status: Image reviewed by me - I disagree with radiology, I see a focal area of consolidation at the right base just above the diaphragm that was not evident on prior chest x-ray Assessment & Plan - Diagnosis (1) Alcohol dependency Qualifiers: Substance use status: unspecified alcohol-induced disorder Qualified Code(s): F10.29 - Alcohol dependence with unspecified alcohol-induced disorder Is this a current diagnosis for this admission?: YesPlan: Continue IV fluids and empiric thiamine. (2) Alcohol intoxication Qualifiers: Complication of substance-induced condition: uncomplicated Qualified Code(s): F10.120 - Alcohol abuse with intoxication, uncomplicated Is this a current diagnosis for this admission?: YesPlan: Continue IV fluids. Monitor for alcohol withdrawal (3) Pneumonia Qualifiers: Pneumonia type: due to unspecified organism Laterality: right Lung location: lower lobe of lung Qualified Code(s): J18.1 - Lobar pneumonia, unspecified organism Is this a current diagnosis for this admission?: YesPlan: Continue Rocephin and Zithromax, supplemental O2 and nebulizer therapy. Await blood cultures from ER. (4) COPD exacerbation Is this a current diagnosis for this admission?: YesPlan: Continue systemic steroids and other treatment as above. (5) CAD (coronary artery disease) Qualifiers: Coronary Disease-Associated Artery/Lesion type: [place] artery [place] vs. transplanted heart: [place] heart Associated angina: without angina Qualified Code(s): I25.10 - Atherosclerotic heart disease of [place] coronary artery without angina pectoris Is this a current diagnosis for this admission?: Yes (6) HTN (hypertension) Qualifiers: Hypertension type: essential hypertension Qualified Code(s): I10 - Essential (primary) hypertension Is this a current diagnosis for this admission?: Yes (8) History of DVT of lower extremity Is this a current diagnosis for this admission?: Yes (10) Tobacco dependency Is this a current diagnosis for this admission?: Yes (11) High anion gap metabolic acidosis Is this a current diagnosis for this admission?: YesPlan: Unclear etiology, possibly alcohol ketosis, located bilaterally acidosis related to underlying infection. - Time Time Spent with patient: 35 or more minutes
[2016-11-24] MEDS ORDERED: CLONIDINE HCL 0.1 MG TABLET PO PRN (16:24)
[2016-11-24] MEDS ORDERED: HYDRALAZINE HCL INJ/PF 20 MG/1 ML SDV IV PRN (16:25)
[2016-11-24] MEDS: CEFTRIAXONE 1 GM/D5W RTU 1 GM/50 ML RTUPB IV SCH (21:10)
[2016-11-24] MEDS: LISINOPRIL 10 MG TABLET PO SCH (21:12)
[2016-11-24] MEDS: ATORVASTATIN CALCIUM 10 MG TABLET PO SCH (21:12)
[2016-11-24] MEDS: AZITHROMYCIN 500 MG in DEXTROSE 5%-WATER 250 ML IV SCH (21:12)
[2016-11-24] MEDS: METOPROLOL TARTRATE 50 MG TABLET PO SCH (21:13)
[2016-11-25] MEDS: LANSOPRAZOLE 30 MG TAB.RAP.DR PO SCH (05:12)
[2016-11-25 07:07] LABS: ABSOLUTE BASOPHILS # (AUTO) 0.1 10^3/uL (0.0-0.2); ABSOLUTE LYMPHOCYTES (AUTO) 1.7 10^3/uL (0.5-4.7); ABSOLUTE MONOCYTES (AUTO) 0.7 10^3/uL (0.1-1.4); ABSOLUTE NEUT (AUTO) 9.2 10^3/uL (1.7-8.2); BASOPHILS % (AUTO) 0.5 % (0-2); HEMATOCRIT 39.8 % (37.9-51.0); HEMOGLOBIN 13.8 g/dL (13.5-17.0); HGB HCT DIFFERENCE 1.6; LYMPHOCYTES % (AUTO) 14.7 % (13-45); MEAN CORPUSCULAR HEMOGLOBIN 36.8 pg (27.0-33.4); MEAN CORPUSCULAR HGB CONC 34.8 g/dL (32.0-36.0); MEAN CORPUSCULAR VOLUME 106 fl (80-97); MONOCYTES % (AUTO) 6.1 % (3-13); RED BLOOD COUNT 3.76 10^6/uL (4.35-5.55); RED CELL DISTRIBUTION WIDTH 14.4 % (11.5-14.0); SEGMENTED NEUTROPHILS % (AUTO) 78.7 % (42-78)
[2016-11-25 07:18] LABS: WHITE BLOOD COUNT 11.7 10^3/uL (4.0-10.5)
[2016-11-25 07:22] LABS: ALANINE AMINOTRANSFERASE 22 U/L (21-72); ALBUMIN 4.1 g/dL (3.5-5.0); ALKALINE PHOSPHATASE 76 U/L (38-126); ANION GAP 11 (5-19); ASPARTATE AMINO TRANSFERASE 28 U/L (17-59); BILIRUBIN,DIRECT 0.2 mg/dL (0.0-0.4); BILIRUBIN,TOTAL 0.7 mg/dL (0.2-1.3); BLOOD UREA NITROGEN 20 mg/dL (7-20); CALCIUM 9.8 mg/dL (8.4-10.2); CARBON DIOXIDE 22 mmol/L (22-30); CHLORIDE 110 mmol/L (98-107); CREATININE RESULT 0.79 mg/dL (0.52-1.25); GLUCOSE 131 mg/dL (75-110); MAGNESIUM 1.9 mg/dL (1.6-2.3); SODIUM 142.7 mmol/L (137-145); TOTAL PROTEIN 7.1 g/dL (6.3-8.2)
[2016-11-25] MEDS: IPRATROPIUM/ALBUTEROL 0.5-2.5 MG/3 ML AMPUL NEB SCH ×3 (08:51→20:35)
[2016-11-25] MEDS: ENOXAPARIN SODIUM INJ 40 MG/0.4 ML DISP.SYRIN SUBCUT SCH (09:40)
[2016-11-25] MEDS: FOLIC ACID 1 MG TABLET PO SCH (09:42)
[2016-11-25] MEDS: FINASTERIDE 5 MG TABLET PO SCH (09:42)
[2016-11-25] MEDS: THIAMINE HCL 100 MG TABLET PO SCH (09:43)
[2016-11-25] MEDS: LISINOPRIL 10 MG TABLET PO SCH ×2 (09:43→21:32)
[2016-11-25] MEDS: TAMSULOSIN HCL 0.4 MG CAP.SR.24H PO SCH (09:44)
[2016-11-25] MEDS: PREDNISONE 20 MG TABLET PO SCH (09:44)
[2016-11-25] MEDS: CYANOCOBALAMIN (VITAMIN B-12) 1,000 MCG TABLET PO SCH (09:44)
[2016-11-25] MEDS: MULTIVITAMIN TABLET PO SCH (09:44)
[2016-11-25] MEDS: METOPROLOL TARTRATE 50 MG TABLET PO SCH ×2 (09:45→21:32)
[2016-11-25] MEDS: ACETAMINOPHEN 325 MG TABLET PO PRN (09:45)
[2016-11-25] MEDS ORDERED: AMLODIPINE BESYLATE 10 MG TABLET PO ONE (11:00)
--- NOTE | 2016-11-25 14:15 | PDOC PROGRESS REPORT ---
Subjective Progress Note for:: 11/25/16 Subjective:: Reason for visit: Community acquired pneumonia, COPD exacerbation Hospital course: Per H&P "HEIDI HEREDIA JR is a 81 year old male, long- term cigar smoker, long-term alcohol dependency, long-term noncompliance of medications, underlying coronary artery disease, status post stent implant, with personal history of DVT and pulmonary embolus, along with eczema, easy bruising, arthritis, borderline diabetes mellitus, by his description, history of nephrolithiasis, and prior stroke, without residual after effects, who presents to the emergency room for evaluation of above complaint. Patient has been discussed with emergency room physician who evaluated the patient. Patient is oriented only to the fact that he is in a hospital. Did not know which specific hospital. Did not know what year. Was initially hypotensive at the scene, EMS reported a systolic pressure of 80. Has been normotensive since coming here. Denies pain, nausea vomiting, diarrhea or dysuria. However, does describe recent subjective fever, along with a productive cough. Denies any known chronic pulmonary disease such as asthma or COPD. Has not had a flu vaccination this year. Currently resting quietly, without specific complaints. " He was admitted to a monitored bed and started on Rocephin and Zithromax for community-acquired pneumonia, systemic steroids for COPD exacerbation with scheduled nebulizers and supplemental O2. Subjective: He denies chest pain, palpitations, fever, chills, nausea, vomiting. He continues to complain of cough productive of creamy white phlegm. He also complains of global dull aching headache, worse with bright lights and sounds, relieved with pain medicine and rest. Nonradiating and not associated with any other symptoms. ROS: per HPI plus a total of 10 systems reviewed, pertinent positives and negatives noted above, remaining systems negative. Physical Exam Vital Signs: Temp Pulse Resp BP Pulse Ox 97.4 F 77 14 168/69 H 100 11/25/16 12:00 11/25/16 12:00 11/25/16 12:00 11/25/16 12:00 11/25/16 12:00 Intake & Output 11/24/16 11/25/16 11/26/16 06:59 06:59 06:59 Intake Total 1242 840 Output Total 325 1200 Balance -325 42 840 Weight 106.5 kg EXAM GENERAL: NAD; appears stated age: well developed, well nourished; no obese; alert and oriented to person, place, time, situation HEENT: normocephalic, atraumatic; no conjunctival injection, no scleral icterus ; oral mucosa moist; RESPIRATORY: no accessory muscle use, no increased WOB, good air entry bilaterally; no rales, rhonchi; bilateral inspiratory crackles & no wheezes, CARDIO: no JVD; RRR; soft systolic murmur; tachycardia GI: soft; nondistended; normal bowel sounds; no rebound, rigidity, guarding; nontender VASCULAR: no carotid bruit; no abdominal bruit; no pallor; 2+ radial, DP pulse ; normal capillary refill EXTREMITIES: no calf tender; no palpable cords in calf; no clubbing, cyanosis , pedal edema PSYCH: normal affect, normal mood SKIN: warm; moist; no petechiae; no telengectasias; no jaundice; no rash Results Laboratory Results: 11/25/16 06:32 11/25/16 06:32 11/25/16 11/25/16 06:32 06:32 WBC 11.7 H D RBC 3.76 L Hgb 13.8 Hct 39.8 MCV 106 H MCH 36.8 H MCHC 34.8 RDW 14.4 H Plt Count 114 L Seg Neutrophils % 78.7 H Lymphocytes % 14.7 Monocytes % 6.1 Eosinophils % 0.0 Basophils % 0.5 Absolute Neutrophils 9.2 H Absolute Lymphocytes 1.7 Absolute Monocytes 0.7 Absolute Eosinophils 0.0 Absolute Basophils 0.1 Sodium 142.7 Potassium 4.0 Chloride 110 H Carbon Dioxide 22 Anion Gap 11 BUN 20 Creatinine 0.79 Est GFR ( Amer) > 60 Est GFR (Non-Af Amer) > 60 Glucose 131 H Calcium 9.8 Magnesium 1.9 Total Bilirubin 0.7 AST 28 ALT 22 Alkaline Phosphatase 76 Total Protein 7.1 Albumin 4.1 Impressions: Chest X-Ray 11/23/16 19:46 IMPRESSION: NO ACUTE RADIOGRAPHIC FINDING IN THE CHEST. Assessment & Plan - Diagnosis (1) Pneumonia Qualifiers: Pneumonia type: due to unspecified organism Laterality: right Lung location: lower lobe of lung Qualified Code(s): J18.1 - Lobar pneumonia, unspecified organism Is this a current diagnosis for this admission?: YesPlan: Continue Rocephin and Zithromax, supplemental O2 and nebulizer therapy. Await blood cultures from ER. (2) HTN (hypertension) Qualifiers: Hypertension type: essential hypertension Qualified Code(s): I10 - Essential (primary) hypertension Is this a current diagnosis for this admission?: YesPlan: Bit accelerated at present, we'll add amlodipine and monitor for effect. May need further titration of his regimen and likely accounts for his headache. (3) Alcohol dependency Qualifiers: Substance use status: unspecified alcohol-induced disorder Qualified Code(s): F10.29 - Alcohol dependence with unspecified alcohol-induced disorder Is this a current diagnosis for this admission?: Yes (4) Alcohol intoxication Qualifiers: Complication of substance-induced condition: uncomplicated Qualified Code(s): F10.120 - Alcohol abuse with intoxication, uncomplicated Is this a current diagnosis for this admission?: Yes (5) COPD exacerbation Is this a current diagnosis for this admission?: Yes (6) CAD (coronary artery disease) Qualifiers: Coronary Disease-Associated Artery/Lesion type: [place] artery [place] vs. transplanted heart: [place] heart Associated angina: without angina Qualified Code(s): I25.10 - Atherosclerotic heart disease of [place] coronary artery without angina pectoris Is this a current diagnosis for this admission?: Yes (8) History of DVT of lower extremity Is this a current diagnosis for this admission?: Yes (10) Tobacco dependency Is this a current diagnosis for this admission?: Yes (11) High anion gap metabolic acidosis Is this a current diagnosis for this admission?: Yes (12) Cephalgia Qualifiers: Headache type: other vascular headache Qualified Code(s): G44.1 - Vascular headache, not elsewhere classified Is this a current diagnosis for this admission?: YesPlan: Likely related to his hypertension, treated as noted above. - Time Time Spent with patient: 25-34 minutes Medications reviewed and adjusted accordingly: Yes Within: within 24 hours
[2016-11-25] MEDS: ATORVASTATIN CALCIUM 10 MG TABLET PO SCH (21:32)
[2016-11-25] MEDS: CEFTRIAXONE 1 GM/D5W RTU 1 GM/50 ML RTUPB IV SCH (21:33)
[2016-11-25] MEDS: AZITHROMYCIN 500 MG in DEXTROSE 5%-WATER 250 ML IV SCH (22:19)
[2016-11-26] MEDS: LANSOPRAZOLE 30 MG TAB.RAP.DR PO SCH (05:10)
[2016-11-26] MEDS: ENOXAPARIN SODIUM INJ 40 MG/0.4 ML DISP.SYRIN SUBCUT SCH (09:07)
[2016-11-26] MEDS: IPRATROPIUM/ALBUTEROL 0.5-2.5 MG/3 ML AMPUL NEB SCH (09:11)
[2016-11-26 09:12] VITALS: BP 168/88
[2016-11-26] MEDS: THIAMINE HCL 100 MG TABLET PO SCH (09:25)
[2016-11-26] MEDS: FINASTERIDE 5 MG TABLET PO SCH (09:25)
[2016-11-26] MEDS: PREDNISONE 20 MG TABLET PO SCH (09:26)
[2016-11-26] MEDS: CYANOCOBALAMIN (VITAMIN B-12) 1,000 MCG TABLET PO SCH (09:26)
[2016-11-26] MEDS: LISINOPRIL 10 MG TABLET PO SCH (09:26)
[2016-11-26] MEDS: METOPROLOL TARTRATE 50 MG TABLET PO SCH (09:27)
[2016-11-26] MEDS: FOLIC ACID 1 MG TABLET PO SCH (09:27)
[2016-11-26] MEDS: MULTIVITAMIN TABLET PO SCH (09:31)
[2016-11-26] MEDS: TAMSULOSIN HCL 0.4 MG CAP.SR.24H PO SCH (09:31)
[2016-11-26] MEDS ORDERED: AMLODIPINE BESYLATE 10 MG TABLET PO SCH (10:00)
--- NOTE | 2016-11-26 16:10 | PDOC DISCHARGE SUMMARY ---
General - Admit/Disc Date/PCP Admission Date/Primary Care Provider: 11/24/16 01:11 Discharge Date: 11/26/16 - Discharge Diagnosis (1) Pneumonia Is this a current diagnosis for this admission?: YesSummary: Patient improved with regards to his pneumonia within the first 24 hours and can safely be discharged home on continued antibiotic therapy matching that given in the hospital. He is not requiring supplemental O2 to maintain adequate oxygenation. He is up ambulating independently in the room without dyspnea. His cough is markedly improved. His mental status back to baseline. (2) HTN (hypertension) Is this a current diagnosis for this admission?: YesSummary: His blood pressures remained quite problematic but he is resistant to my attempts to further titrate his regimen. Stating he would rather follow-up with his primary care provider for further treatment options. Prescriptions were provided for the medications being used in hospital. He also reports "white coat syndrome" stating that his blood pressures at home are always lower than once found in his doctor's office. Defer to his PCP for further titration. (3) Alcohol dependency Is this a current diagnosis for this admission?: YesSummary: He is assigned work counseled regarding the patient's alcohol use, he has no interest in cessation at this time. He was instructed that should he change his mind not to abruptly stop alcohol use but to do so in a controlled manner under the guidance of a physician. (4) Alcohol intoxication Is this a current diagnosis for this admission?: YesSummary: He showed no evidence of alcohol withdrawal during his hospitalization at least not neurologically. (5) COPD exacerbation Is this a current diagnosis for this admission?: Yes (6) CAD (coronary artery disease) Is this a current diagnosis for this admission?: Yes (8) History of DVT of lower extremity Is this a current diagnosis for this admission?: Yes (10) Tobacco dependency Is this a current diagnosis for this admission?: Yes (11) High anion gap metabolic acidosis Is this a current diagnosis for this admission?: Yes (12) Cephalgia Is this a current diagnosis for this admission?: YesSummary: I believe his headache is multifactorial with a component of blood pressure as much is anything. He is to follow-up with his PCP regarding further treatment and evaluation. - Additional Information Resuscitation Status: Full Code Discharge Diet: As Tolerated Discharge Activity: Activity As Tolerated, Balance Activity w/Rest, Slowly Increase Activity Home Medications: Atorvastatin Calcium [Lipitor 10 mg Tablet] 10 mg PO QHS 11/24/16 Butalbital/Acetaminophen [Butalbital-Acetaminophn 50-325] 1 cap PO Q6HP PRN Cyanocobalamin (Vitamin B-12) [Vitamin B-12] 1,000 mcg PO DAILY 11/24/16 Finasteride [Proscar 5 mg Tablet] 5 mg PO DAILY 11/24/16 Tamsulosin HCl [Flomax 0.4 mg Cap.sr] 0.4 mg PO DAILY 11/24/16 Amlodipine Besylate [Norvasc 10 mg Tablet] 10 mg PO BID #60 tablet 11/26/16 Azithromycin [Zithromax Tri-Esequiel] 500 mg PO DAILY #1 pkg 11/26/16 Cefdinir [Omnicef 300 mg Capsule] 1 cap PO BID #14 capsule 11/26/16 Lisinopril [Prinivil 10 mg Tablet] 10 mg PO Q12 #60 tablet 11/26/16 Metoprolol Tartrate [Lopressor 50 mg Tablet] 50 mg PO Q12 #60 tablet 11/26/16 Multivitamin [Tab-A-Amado (Multiple Vitamin) Tablet] 1 tab PO DAILY tablet 11/26 Prednisone [Deltasone 20 mg Tablet] 60 mg PO DAILY 5 Days 11/26/16 History of Present Illness Patient complains of: Feeling unwell History of Present Illness: HEIDI HEREDIA JR is a 81 year old male male, long-term cigar smoker, long-term alcohol dependency, long-term noncompliance of medications, underlying coronary artery disease, status post stent implant, with personal history of DVT and pulmonary embolus, along with eczema, easy bruising, arthritis, borderline diabetes mellitus, by his description, history of nephrolithiasis, and prior stroke, without residual after effects, who presents to the emergency room for evaluation of above complaint. Hospital Course Hospital Course: Patient is initially oriented only to the fact that he is in a hospital. Did not know which specific hospital. Did not know what year. Was initially hypotensive at the scene, EMS reported a systolic pressure of 80. Has been normotensive since coming here. Denies pain, nausea vomiting, diarrhea or dysuria. However, does describe recent subjective fever, along with a productive cough. Denies any known chronic pulmonary disease such as asthma or COPD. Has not had a flu vaccination this year. Currently resting quietly, without specific complaints." He was admitted to a monitored bed and started on Rocephin and Zithromax for community-acquired pneumonia, systemic steroids for COPD exacerbation with scheduled nebulizers and supplemental O2. His mental state cleared rapidly. He stated over and over that he did not wish to be in the hospital was only willing to stay as I attempted to titrate his antihypertensive regimen to control his headache. When it became clear that would require additional time in the hospital he refused to stay longer. Rather than fight over whether he should stay or go, the patient is showing no neurologic sequela other than possibly cephalgia which is been chronic for months, I elected to discharge the patient so he would accept prescriptions for continued treatment of both blood pressure and pneumonia. Otherwise I fear he would've signed out AGAINST MEDICAL ADVICE and at that point refused any further treatment from me. His respiratory status improved rapidly as well. He is ambulating in the room without dyspnea and is not requiring supplemental O2 to maintain adequate oxygenation. His cough is improved. His lung exam is improved. I think he is stable for discharge home at this time. I believe he runs hypertensive all the time but I did describe to him the risks of persistent hypertension including but not limited to stroke and heart attack and he states understanding and willingness to follow-up with his PCP for further direction. He also reports episodic "white coat syndrome"that he believes contributes to our findings. Physical Exam Vital Signs: Temp Pulse Resp BP Pulse Ox 97.5 F 68 20 168/88 H 100 11/26/16 09:06 11/26/16 09:06 11/26/16 09:06 11/26/16 09:06 11/26/16 09:06 Intake & Output 11/25/16 11/26/16 11/27/16 06:59 06:59 06:59 Intake Total 1242 1703 Output Total 1200 1500 Balance 42 203 Weight 106.5 kg EXAM GENERAL: NAD; appears stated age: well developed, well nourished; no obese; alert and oriented to person, place, time, situation HEENT: normocephalic, atraumatic; no conjunctival injection, no scleral icterus ; oral mucosa moist; RESPIRATORY: no accessory muscle use, no increased WOB, good air entry bilaterally; no rales, rhonchi; resolution of bilateral inspiratory crackles & no wheezes, CARDIO: no JVD; RRR; soft systolic murmur; no tachycardia GI: soft; nondistended; normal bowel sounds; no rebound, rigidity, guarding; nontender VASCULAR: no carotid bruit; no abdominal bruit; no pallor; 2+ radial, DP pulse ; normal capillary refill EXTREMITIES: no calf tender; no palpable cords in calf; no clubbing, cyanosis , pedal edema PSYCH: normal affect, normal mood SKIN: warm; moist; no petechiae; no telengectasias; no jaundice; no rash Results Laboratory Results: 11/25/16 06:32 11/25/16 06:32 11/25/16 06:53 Sputum Gram Stain - Final 11/25/16 06:53 Sputum Sputum Culture - Final Impressions: Chest X-Ray 11/23/16 19:46 IMPRESSION: NO ACUTE RADIOGRAPHIC FINDING IN THE CHEST. Qualifiers PATEINT BEING DISCHARGED WITH ANY OF THE FOLLOWING DIAGNOSIS?: No VTE patient discharged on overlapping Therapy?: No Reason(s) for not prescribing Overlap Therapy:: Not indicated Plan Discharge Plan: Discharge home with follow-up with his primary care provider in one week. Return to the emergency department for worsening of his condition. Time Spent: Greater than 30 Minutes
== END 2016-11-26 10:35 | disposition home or self-care (01) | DRG 190 ==
LOC: ER 19:11 → EH 23:18 → UNDOADMIN 23:18 → EH 11-24 01:11 → 3S 11-24 15:38
PROVIDERS: ADMIT Family Medicine; ATTEND Family Medicine
PROC: 3E0F73Z Introduction of Anti-inflammatory into Respiratory Tract, Via Natural or Artificial Opening (ICD-10-PCS; principal; 2016-11-24)
DX: J44.0 Chronic obstructive pulmonary disease with (acute) lower respiratory infection (principal); J18.9 Pneumonia, unspecified organism; E87.2 Acidosis; J44.1 Chronic obstructive pulmonary disease with (acute) exacerbation; F10.229 Alcohol dependence with intoxication, unspecified; I10 Essential (primary) hypertension; F17.290 Nicotine dependence, other tobacco product, uncomplicated; L30.9 Dermatitis, unspecified; R73.03 Prediabetes; G44.1 Vascular headache, not elsewhere classified; M19.90 Unspecified osteoarthritis, unspecified site; Z86.718 Personal history of other venous thrombosis and embolism; I25.2 Old myocardial infarction; Z86.73 Personal history of transient ischemic attack (TIA), and cerebral infarction without residual deficits; Z95.5 Presence of coronary angioplasty implant and graft; Z91.14 Patient's other noncompliance with medication regimen; Z86.711 Personal history of pulmonary embolism
CPT/HCPCS: 36415; 71010; 80048; 80053; 80307; 81001; 82550; 82553; 82607; 82746; 82803; 82962; 83605; 83735; 84443; 84484; 85025; 85610; 87040; 87077; 87086; 87186; 87205; 87804; 93005; 93010; 94640; 94799; 96360; 99291; J0456; J0696; J1650; J2930; J3490; J7030; J7060; J7512; J7620

== ENCOUNTER 2016-12-14 16:25 | Emergency (ER) | payer OTHER, MEDICARE ==
--- NOTE | 2016-12-14 17:15 | ER Document Report ---
ED Medical Screen (RME) - General Chief Complaint: Abdominal Pain Stated Complaint: ABDOMINAL PAIN Notes: The patient is an 81-year-old male, past medical history chronic back pain, CAD , HTN, DM, current smoker, daily drinker, presents with several weeks of lower abdominal pain and a few days of losing his bowel and bladder. He was admitted to [facility] 3 weeks ago for pneumonia and hypotension. He has not been able to follow-up with his primary care physician after discharge. Denies nausea, vomiting, chest pain, shortness of breath, cough, headache, numbness, tingling or saddle anesthesia I have greeted and performed a rapid initial assessment of this patient. A comprehensive ED assessment and evaluation of the patient, analysis of test results and completion of the medical decision making process will be conducted by additional ED providers. TRAVEL OUTSIDE OF THE [place] IN LAST 30 DAYS: No - Related Data Allergies/Adverse Reactions: No Known Allergies Allergy (Verified 10/23/16 18:43) Past Medical History - Past Medical History Cardiac Medical History: Reports: Hx DVT - LLE, Hx Heart Attack, Hx Hypertension , Hx Pulmonary Embolism Denies: Hx Hypercholesterolemia Pulmonary Medical History: Denies: Hx Asthma, Hx COPD, Hx Sleep Apnea Neurological Medical History: Reports: Hx Cerebrovascular Accident. Denies: Hx Seizures Endocrine Medical History: Reports: Hx Diabetes Mellitus Type 2 - Borderline diabetes mellitus, without necessary medications, per patient.. Denies: Hx Diabetes Mellitus Type 1, Hx Hyperthyroidism, Hx Hypothyroidism Renal/ Medical History: Denies: Hx Peritoneal Dialysis GI Medical History: Denies: Hx Cirrhosis, Hx Gastroesophageal Reflux Disease, Hx Hepatitis Musculoskeltal Medical History: Reports Hx Arthritis Psychiatric Medical History: Denies: Hx Depression Infectious Medical History: Denies: Hx C-Diff, Hx Hepatitis, Hx MRSA Past Surgical History: Reports: Hx Abdominal Surgery, Hx Cardiac Catheterization - with stent placement, Hx Cardiac Surgery - Cardiac Stent, Hx Open Heart Surgery, Hx Orthopedic Surgery, Hx Vascular Surgery - AAA repair - Immunizations Hx Diphtheria, Pertussis, Tetanus Vaccination: Yes - Unknown Physical Exam - Vital signs Vitals: Temp Pulse Resp BP Pulse Ox 98.7 F 73 19 113/51 L 95 12/14/16 16:36 12/14/16 16:36 12/14/16 16:36 12/14/16 16:36 12/14/16 16:36 Course - Vital Signs Vital signs: Temp Pulse Resp BP Pulse Ox 98.7 F 74 19 113/51 L 96 12/14/16 17:07 12/14/16 17:07 12/14/16 17:07 12/14/16 17:07 12/14/16 17:07
[2016-12-14 18:09] LABS: ABSOLUTE EOSINOPHILS # (AUTO) 0.2 10^3/uL (0.0-0.6); ABSOLUTE LYMPHOCYTES (AUTO) 2.9 10^3/uL (0.5-4.7); ABSOLUTE MONOCYTES (AUTO) 0.7 10^3/uL (0.1-1.4); BASOPHILS % (AUTO) 0.4 % (0-2); EOSINOPHILS % (AUTO) 2.4 % (0-6); HEMOGLOBIN 14.5 g/dL (13.5-17.0); HGB HCT DIFFERENCE 1.5; LYMPHOCYTES % (AUTO) 29.5 % (13-45); MEAN CORPUSCULAR HGB CONC 34.6 g/dL (32.0-36.0); MEAN CORPUSCULAR VOLUME 107 fl (80-97); MONOCYTES % (AUTO) 7.4 % (3-13); RED BLOOD COUNT 3.92 10^6/uL (4.35-5.55); SEGMENTED NEUTROPHILS % (AUTO) 60.3 % (42-78); WHITE BLOOD COUNT 9.9 10^3/uL (4.0-10.5)
[2016-12-14 18:19] LABS: ALANINE AMINOTRANSFERASE 42 U/L (21-72); ALCOHOL 117 mg/dL (NONE DETECTED); ALKALINE PHOSPHATASE 98 U/L (38-126); ANION GAP 13 (5-19); ASPARTATE AMINO TRANSFERASE 23 U/L (17-59); BILIRUBIN,DIRECT 0.3 mg/dL (0.0-0.4); BILIRUBIN,TOTAL 0.8 mg/dL (0.2-1.3); BLOOD UREA NITROGEN 19 mg/dL (7-20); CALCIUM 9.1 mg/dL (8.4-10.2); CARBON DIOXIDE 25 mmol/L (22-30); CHLORIDE 108 mmol/L (98-107); CREATININE RESULT 0.86 mg/dL (0.52-1.25); GLUCOSE 86 mg/dL (75-110); LIPASE 91.5 U/L (23-300); POTASSIUM 4.3 mmol/L (3.6-5.0); TOTAL PROTEIN 6.9 g/dL (6.3-8.2)
--- NOTE | 2016-12-14 19:16 | ER Document Report ---
ED GI/ - General Chief Complaint: Abdominal Pain Stated Complaint: ABDOMINAL PAIN Time seen by provider: 19:05 Notes: Patient is an 81-year-old male that comes emergency department for chief complaint of pain in his left lower abdomen, he states this is been worsening for several days, he states that he also at times does not make it to the bathroom and has a bowel movement in his pants, he states this is not new and has been going on for months. He denies bloody stools, fever, vomiting. He states he cannot remember if he had a colonoscopy. He reports he was recently treated with antibiotics for pneumonia. Past medical history includes seen a week hypertension diabetes, alcoholism, smoking. TRAVEL OUTSIDE OF THE [place] IN LAST 30 DAYS: No - Related Data Allergies/Adverse Reactions: No Known Allergies Allergy (Verified 10/23/16 18:43) Past Medical History - General Information source: Patient - Social History Smoking Status: Current Every Day Smoker Chew tobacco use (# tins/day): No Frequency of alcohol use: Heavy Lives with: Family Family History: Reviewed & Not Pertinent Patient has suicidal ideation: No Patient has homicidal ideation: No - Past Medical History Cardiac Medical History: Reports: Hx DVT - LLE, Hx Heart Attack, Hx Hypertension , Hx Pulmonary Embolism Denies: Hx Hypercholesterolemia Pulmonary Medical History: Denies: Hx Asthma, Hx COPD, Hx Sleep Apnea Neurological Medical History: Reports: Hx Cerebrovascular Accident. Denies: Hx Seizures Endocrine Medical History: Reports: Hx Diabetes Mellitus Type 2 - Borderline diabetes mellitus, without necessary medications, per patient.. Denies: Hx Diabetes Mellitus Type 1, Hx Hyperthyroidism, Hx Hypothyroidism Renal/ Medical History: Denies: Hx Peritoneal Dialysis GI Medical History: Denies: Hx Cirrhosis, Hx Gastroesophageal Reflux Disease, Hx Hepatitis Musculoskeltal Medical History: Reports Hx Arthritis Psychiatric Medical History: Denies: Hx Depression Infectious Medical History: Denies: Hx C-Diff, Hx Hepatitis, Hx MRSA Past Surgical History: Reports: Hx Abdominal Surgery, Hx Cardiac Catheterization - with stent placement, Hx Cardiac Surgery - Cardiac Stent, Hx Open Heart Surgery, Hx Orthopedic Surgery, Hx Vascular Surgery - AAA repair - Immunizations Hx Diphtheria, Pertussis, Tetanus Vaccination: Yes - Unknown Review of Systems - Review of Systems Constitutional: No symptoms reported EENT: No symptoms reported Cardiovascular: No symptoms reported Respiratory: No symptoms reported Gastrointestinal: See HPI Genitourinary: No symptoms reported Male Genitourinary: No symptoms reported Musculoskeletal: No symptoms reported Skin: No symptoms reported Hematologic/Lymphatic: No symptoms reported Neurological/Psychological: No symptoms reported Physical Exam - Vital signs Vitals: Temp Pulse Resp BP Pulse Ox 98.7 F 73 19 113/51 L 95 12/14/16 16:36 12/14/16 16:36 12/14/16 16:36 12/14/16 16:36 12/14/16 16:36 Interpretation: Normal - General General appearance: Appears well, Alert In distress: None - Patient does not appear to be in any distress, alert and well-appearing - HEENT Head: Normocephalic, Atraumatic Eyes: Normal Pupils: PERRL - Respiratory Respiratory status: No respiratory distress Chest status: Nontender Breath sounds: Normal Chest palpation: Normal - Cardiovascular Rhythm: Regular Heart sounds: Normal auscultation Murmur: No - Abdominal Inspection: Normal Distension: No distension Bowel sounds: Normal Tenderness: Tender - Tenderness noted in the left lower quadrant on examination , no rigidity, otherwise soft and unremarkable abdomen - Back Back: Normal, Nontender. No: Tender, CVA tenderness - Extremities General upper extremity: Normal inspection, Nontender, Normal color, Normal ROM , Normal temperature General lower extremity: Normal inspection, Nontender, Normal color, Normal ROM , Normal temperature, Normal weight bearing. No: Gaudencio's sign - Neurological Neuro grossly intact: Yes Cognition: Normal Orientation: AAOx4 Robbins Coma Scale Eye Opening: Spontaneous Mary Coma Scale Verbal: Oriented Mary Coma Scale Motor: Obeys Commands Robbins Coma Scale Total: 15 Speech: Normal Motor strength normal: LUE, RUE, LLE, RLE Sensory: Normal - Psychological Associated symptoms: Normal affect, Normal mood - Skin Skin Temperature: Warm Skin Moisture: Dry Skin Color: Normal Course - Re-evaluation Re-evalutation: Patient talking on the cell phone when I entered the room, is calm, cooperative , conversational, appears to be sober. Patient does however have noted tenderness in the left lower quadrant on examination, no rigidity of the abdomen , otherwise benign abdomen and examination. Patient is not tachycardic, hypotensive, no leukocytosis, no fever, chemistry unremarkable. Because of the tenderness on exam and patient's age with multiple comorbidities CT of the abdomen and pelvis with IV and oral contrast ordered. Blood alcohol showing 117 , patient very sober at this level. Denies history of withdrawals. Discussed with Dr. Haas per [facility] protocol. Patient reevaluated multiple times, no change, continues to smile, rest comfortably, playing on his phone. CT shows stable aortic aneurysm which has been present on previous imaging, also shows mild diverticulitis which is most likely the cause of patient's symptoms, no abscess or perforation noted, no fever, patient states that he is comfortable on final evaluation. Patient started on Cipro, Flagyl, discussed follow-up, discussed return precautions in detail, patient states satisfaction and agreement. - Vital Signs Vital signs: Temp Pulse Resp BP Pulse Ox 98.7 F 74 19 137/75 H 93 12/14/16 17:07 12/14/16 17:07 12/14/16 23:01 12/14/16 23:01 12/14/16 23:01 - Laboratory Result Diagrams: 12/14/16 17:45 12/14/16 17:45 Laboratory results interpreted by me: 12/14/16 12/14/16 17:45 17:45 RBC 3.92 L MCV 107 H MCH 37.0 H Plt Count 98 L Sodium 146.0 H Chloride 108 H Discharge - Discharge Clinical Impression: Abdominal pain Qualifiers: Abdominal location: left lower quadrant Qualified Code(s): R10.32 - Left lower quadrant pain Condition: Stable Disposition: HOME, SELF-CARE Additional Instructions: Imaging, exam, and workup are consistent with diverticulitis. Take the antibiotics as prescribed, follow-up in the next 3 days with your primary care provider, clear fluid diet possible over the next couple of days. Return immediately if you develop any concerning worsening symptoms including fever, bloody bowel movements, worsening pain, or any other concerning symptoms. Prescriptions: Ciprofloxacin HCl [Cipro 500 mg Tablet] 500 mg PO BID #14 tablet Metronidazole [Flagyl 500 mg Tablet] 500 mg PO TID #21 tablet Referrals: TANYA LY MD [Primary Care Provider] - Follow up as needed
[2016-12-14 19:53] LABS: APPEARANCE,URINE CLEAR; BILIRUBIN,URINE NEGATIVE (NEGATIVE); GLUCOSE, URINE NEGATIVE (NEGATIVE); KETONES,URINE NEGATIVE (NEGATIVE); LEUKOCYTE ESTERASE,URINE NEGATIVE (NEGATIVE); NITRITE,URINE NEGATIVE (NEGATIVE); PROTEIN,URINE NEGATIVE (NEGATIVE); URINE SPECIFIC GRAVITY 1.012; UROBILINOGEN,URINE NEGATIVE mg/dL (<2.0)
[2016-12-14] MEDS ORDERED: CIPROFLOXACIN HCL 500 MG TABLET PO ONE (23:13)
[2016-12-14] MEDS ORDERED: METRONIDAZOLE 500 MG TABLET PO ONE (23:13)
[2016-12-15 09:44] VITALS: BP 138/74
== END 2016-12-15 00:07 | disposition home or self-care (01) ==
LOC: ER 16:25
DX: R10.32 Left lower quadrant pain (principal); F17.200 Nicotine dependence, unspecified, uncomplicated
CPT/HCPCS: 36415; 74177; 80053; 80307; 81001; 83690; 85025; 99284

== ENCOUNTER 2017-03-24 20:55 | Inpatient (IN) | payer OTHER, MEDICARE, MEDICAID ==
--- NOTE | 2017-03-24 21:44 | ER Document Report ---
ED Extremity Problem, Lower - General Information source: Patient TRAVEL OUTSIDE OF THE [place] IN LAST 30 DAYS: No - HPI Patient complains to provider of: Swelling Location: Leg <SHANNA SELLERS - Last Filed: 03/25/17 00:14> <KAMICOLE TALBERT - Last Filed: 03/25/17 00:19> - General Chief Complaint: Edema Stated Complaint: POSSIBLE SWELLING Time Seen by Provider: 03/24/17 21:23 Notes: Patient is an 81 year old male with a history of DVT presents to the ED with complaints of choric lower extremity edema. Patient also complains of pain below his right knee. Patient is on blood thinners but he is unsure what one, he has no change in medications since his hospitalization here in November 24, 2016. Patient states that the right leg is more swollen than normal but is always more swollen than the left leg. After reviewing all records, Doppler and the patients record it shows a DVT in the left lower extremity. Patient states nothing is new or different tonight. No other concerns or complaints at this time. (SHANNA SELLERS) - Related Data Allergies/Adverse Reactions: No Known Allergies Allergy (Verified 10/23/16 18:43) Past Medical History - General Information source: Patient - Social History Smoking Status: Current Every Day Smoker Frequency of alcohol use: daily Drug Abuse: None Family History: Reviewed & Not Pertinent - Past Medical History Cardiac Medical History: Reports: Hx DVT - LLE, Hx Heart Attack, Hx Hypertension , Hx Pulmonary Embolism Denies: Hx Hypercholesterolemia Pulmonary Medical History: Denies: Hx Asthma, Hx COPD, Hx Sleep Apnea Neurological Medical History: Reports: Hx Cerebrovascular Accident. Denies: Hx Seizures Endocrine Medical History: Reports: Hx Diabetes Mellitus Type 2 - Borderline diabetes mellitus, without necessary medications, per patient.. Denies: Hx Diabetes Mellitus Type 1, Hx Hyperthyroidism, Hx Hypothyroidism Renal/ Medical History: Denies: Hx Peritoneal Dialysis GI Medical History: Denies: Hx Cirrhosis, Hx Gastroesophageal Reflux Disease, Hx Hepatitis Musculoskeltal Medical History: Reports Hx Arthritis Psychiatric Medical History: Denies: Hx Depression Infectious Medical History: Denies: Hx C-Diff, Hx Hepatitis, Hx MRSA Past Surgical History: Reports: Hx Abdominal Surgery, Hx Cardiac Catheterization - with stent placement, Hx Cardiac Surgery - Cardiac Stent, Hx Open Heart Surgery, Hx Orthopedic Surgery, Hx Vascular Surgery - AAA repair - Immunizations Hx Diphtheria, Pertussis, Tetanus Vaccination: Yes - Unknown <SHANNA SELLERS - Last Filed: 03/25/17 00:14> Review of Systems - Review of Systems Constitutional: No symptoms reported EENT: No symptoms reported Cardiovascular: No symptoms reported Respiratory: No symptoms reported Gastrointestinal: No symptoms reported Genitourinary: No symptoms reported Male Genitourinary: No symptoms reported Musculoskeletal: See HPI, Leg swelling, Other - right lower leg pain Skin: No symptoms reported Hematologic/Lymphatic: No symptoms reported Neurological/Psychological: No symptoms reported <SHANNA SELLERS - Last Filed: 03/25/17 00:14> Physical Exam - General General appearance: Appears well, Alert In distress: None - HEENT Head: Normocephalic, Atraumatic Eyes: Normal Pupils: PERRL Neck: Normal. No: Carotid bruit - Respiratory Respiratory status: No respiratory distress Breath sounds: Normal - Cardiovascular Rhythm: Regular Heart sounds: Normal auscultation Murmur: No - Abdominal Inspection: Obese Distension: No distension Bowel sounds: Normal Tenderness: Nontender - Back Back: Normal - Extremities General upper extremity: Normal inspection General lower extremity: Other - left lower extremity: soft 1 plus pitting edema , dorsal foot swollen right lower extremity: 3 plus pitting edema, erythema to leg, very tender in distal calf into acchiles area, distal foot more puffy than left, significant ostoarthritic canges in knees - Neurological Neuro grossly intact: Yes - Psychological Associated symptoms: Normal affect, Normal mood - Skin Skin Temperature: Warm Skin Moisture: Dry <SHANNA SELLERS - Last Filed: 03/25/17 00:14> Course - Laboratory Result Diagrams: 03/24/17 21:30 03/24/17 21:30 - Consults Dr. Berumen Time consulted: 00:10 <VERITOSHANNA - Last Filed: 03/25/17 00:14> - Laboratory Result Diagrams: 03/24/17 21:30 03/24/17 21:30 - Diagnostic Test Radiology reviewed: Reports reviewed - Venous Doppler shows acute DVT from the right common femoral to the popliteal vein. - Consults Dr. Berumen Consulted provider: will come to ER Dr. Kvng Gaffney Consulted provider: will see as inpatient - He will see the patient tomorrow morning to help make decision about an inferior vena caval filter. <COLE MCCLURE - Last Filed: 03/25/17 00:19> - Vital Signs Vital signs: Temp Pulse Resp BP Pulse Ox 97.7 F 13 107/50 L 97 03/24/17 21:33 03/24/17 23:01 03/24/17 23:00 03/24/17 23:01 - Laboratory Laboratory results interpreted by me: 03/24/17 03/24/17 21:30 21:30 RBC 3.27 L Hgb 11.9 L Hct 35.0 L MCV 107 H MCH 36.4 H RDW 16.2 H Plt Count 113 L Potassium 3.5 L Chloride 108 H Calcium 8.2 L Albumin 3.3 L - Consults Dr. Berumen Reason for consultation: 03/25/17 00:10 Discussed patient. Patient accepted for admission. (SHANNA SELLERS) Discharge <SHANNA SELLERS - Last Filed: 03/25/17 00:14> - Discharge Admitting Provider: Hospitalist Unit Admitted: Telemetry <COLE MCCLURE - Last Filed: 03/25/17 00:19> - Discharge Clinical Impression: Alcohol abuse Dvt femoral (deep venous thrombosis) Qualifiers: Chronicity: acute Laterality: right Qualified Code(s): I82.411 - Acute embolism and thrombosis of right femoral vein Alcohol intoxication Qualifiers: Complication of substance-induced condition: uncomplicated Qualified Code(s): F10.920 - Alcohol use, unspecified with intoxication, uncomplicated Scribe Attestation: 03/25/17 00:19 I personally performed the services described in the documentation, reviewed and edited the documentation which was dictated to the scribe in my presence, and it accurately records my words and actions. (COLE MCCLURE) Scribe Documentation - Scribe Written by Morgan:: morgan Blankenship, 03/24/2017, 2145 acting as scribe for :: Kami <SHANNA SELLERS - Last Filed: 03/25/17 00:14>
[2017-03-24 21:48] LABS: ABSOLUTE BASOPHILS # (AUTO) 0.1 10^3/uL (0.0-0.2); ABSOLUTE EOSINOPHILS # (AUTO) 0.3 10^3/uL (0.0-0.6); ABSOLUTE LYMPHOCYTES (AUTO) 3.2 10^3/uL (0.5-4.7); ABSOLUTE MONOCYTES (AUTO) 0.7 10^3/uL (0.1-1.4); ABSOLUTE NEUT (AUTO) 3.3 10^3/uL (1.7-8.2); BASOPHILS % (AUTO) 0.8 % (0-2); EOSINOPHILS % (AUTO) 3.6 % (0-6); HEMOGLOBIN 11.9 g/dL (13.5-17.0); HGB HCT DIFFERENCE 0.7; MEAN CORPUSCULAR HEMOGLOBIN 36.4 pg (27.0-33.4); MEAN CORPUSCULAR VOLUME 107 fl (80-97); MONOCYTES % (AUTO) 8.9 % (3-13); RED BLOOD COUNT 3.27 10^6/uL (4.35-5.55); RED CELL DISTRIBUTION WIDTH 16.2 % (11.5-14.0); SEGMENTED NEUTROPHILS % (AUTO) 43.7 % (42-78); WHITE BLOOD COUNT 7.4 10^3/uL (4.0-10.5)
[2017-03-24 22:09] LABS: ALANINE AMINOTRANSFERASE 29 U/L (21-72); ALBUMIN 3.3 g/dL (3.5-5.0); ALCOHOL 208 mg/dL (NONE DETECTED); ALKALINE PHOSPHATASE 80 U/L (38-126); ANION GAP 12 (5-19); ASPARTATE AMINO TRANSFERASE 18 U/L (17-59); BILIRUBIN,DIRECT 0.3 mg/dL (0.0-0.4); BILIRUBIN,TOTAL 0.4 mg/dL (0.2-1.3); BLOOD UREA NITROGEN 13 mg/dL (7-20); CALCIUM 8.2 mg/dL (8.4-10.2); CARBON DIOXIDE 23 mmol/L (22-30); CHLORIDE 108 mmol/L (98-107); CREATININE RESULT 0.91 mg/dL (0.52-1.25); GLUCOSE 93 mg/dL (75-110); MAGNESIUM 1.8 mg/dL (1.6-2.3); POTASSIUM 3.5 mmol/L (3.6-5.0); SODIUM 143.1 mmol/L (137-145); TOTAL PROTEIN 6.3 g/dL (6.3-8.2)
[2017-03-25] MEDS ORDERED: ONDANSETRON HCL INJ/PF 4 MG/2 ML SDV IV PRN (00:18)
[2017-03-25] MEDS ORDERED: MAGNESIUM HYDROXIDE SUSP 30 ML UDCUP PO PRN (00:18)
[2017-03-25] MEDS ORDERED: LORAZEPAM INJ 2 MG/1 ML VIAL IV PRN (00:18)
[2017-03-25] MEDS ORDERED: ACETAMINOPHEN 325 MG TABLET PO PRN (00:18)
[2017-03-25] MEDS ORDERED: METOPROLOL TARTRATE 50 MG TABLET PO ONE (00:45)
[2017-03-25] MEDS ORDERED: LORAZEPAM 1 MG TABLET PO ONE (00:45)
[2017-03-25 00:57] LABS: PROTHROMBIN TIME 13.5 SEC (11.4-15.4)
[2017-03-25] MEDS: NORMAL SALINE 1000 ML 1,000 ML IV SCH ×2 (00:57→09:27)
[2017-03-25] MEDS ORDERED: THIAMINE HCL 100 MG, FOLIC ACID 1 MG in NORMAL SALINE 50 ML IV ONE (01:00)
[2017-03-25] MEDS ORDERED: FOLIC ACID INJ 5 MG/1 ML 10 ML VIAL IV PRN (01:00)
[2017-03-25] MEDS ORDERED: THIAMINE HCL INJ 200 MG/2 ML VIAL IV PRN (01:00)
[2017-03-25 01:04] LABS: D-DIMER > 20.00 ug/mL (0.00-0.50)
[2017-03-25] MEDS ORDERED: ENOXAPARIN SODIUM INJ 120 MG/0.8 ML DISP.SYRIN SUBCUT SCH (02:00)
[2017-03-25 04:02] LABS: ABSOLUTE BASOPHILS # (AUTO) 0.1 10^3/uL (0.0-0.2); ABSOLUTE EOSINOPHILS # (AUTO) 0.2 10^3/uL (0.0-0.6); ABSOLUTE LYMPHOCYTES (AUTO) 2.8 10^3/uL (0.5-4.7); ABSOLUTE MONOCYTES (AUTO) 0.5 10^3/uL (0.1-1.4); ABSOLUTE NEUT (AUTO) 2.4 10^3/uL (1.7-8.2); EOSINOPHILS % (AUTO) 3.9 % (0-6); HEMATOCRIT 33.8 % (37.9-51.0); HEMOGLOBIN 11.6 g/dL (13.5-17.0); LYMPHOCYTES % (AUTO) 46.4 % (13-45); MEAN CORPUSCULAR HEMOGLOBIN 36.5 pg (27.0-33.4); MEAN CORPUSCULAR HGB CONC 34.4 g/dL (32.0-36.0); MEAN CORPUSCULAR VOLUME 106 fl (80-97); MONOCYTES % (AUTO) 7.7 % (3-13); RED BLOOD COUNT 3.18 10^6/uL (4.35-5.55); RED CELL DISTRIBUTION WIDTH 15.9 % (11.5-14.0); WHITE BLOOD COUNT 5.9 10^3/uL (4.0-10.5)
[2017-03-25 04:06] LABS: ALANINE AMINOTRANSFERASE 24 U/L (21-72); ALBUMIN 3.1 g/dL (3.5-5.0); ALKALINE PHOSPHATASE 85 U/L (38-126); ANION GAP 11 (5-19); ASPARTATE AMINO TRANSFERASE 13 U/L (17-59); BILIRUBIN,DIRECT 0.3 mg/dL (0.0-0.4); BILIRUBIN,TOTAL 0.3 mg/dL (0.2-1.3); BLOOD UREA NITROGEN 11 mg/dL (7-20); CALCIUM 7.8 mg/dL (8.4-10.2); CARBON DIOXIDE 23 mmol/L (22-30); CHLORIDE 109 mmol/L (98-107); CREATININE RESULT 0.85 mg/dL (0.52-1.25); GLUCOSE 92 mg/dL (75-110); POTASSIUM 3.7 mmol/L (3.6-5.0); SODIUM 142.8 mmol/L (137-145); TOTAL PROTEIN 5.5 g/dL (6.3-8.2)
[2017-03-25] MEDS: IPRATROPIUM/ALBUTEROL 0.5-2.5 MG/3 ML AMPUL NEB SCH ×3 (07:52→23:55)
[2017-03-25] MEDS ORDERED: RIVAROXABAN 15 MG TABLET PO ONE (09:00)
[2017-03-25 09:13] LABS: AMORPHOUS SEDIMENT,URINE TRACE /HPF; APPEARANCE,URINE CLOUDY; BILIRUBIN,URINE NEGATIVE (NEGATIVE); GLUCOSE, URINE NEGATIVE (NEGATIVE); KETONES,URINE NEGATIVE (NEGATIVE); LEUKOCYTE ESTERASE,URINE LARGE (NEGATIVE); NITRITE,URINE POSITIVE (NEGATIVE); PROTEIN,URINE 30 mg/dL (NEGATIVE); URINE SPECIFIC GRAVITY 1.012; UROBILINOGEN,URINE NEGATIVE mg/dL (<2.0)
[2017-03-25] MEDS: FINASTERIDE 5 MG TABLET PO SCH (09:25)
[2017-03-25] MEDS: THIAMINE HCL 100 MG TABLET PO SCH (09:25)
[2017-03-25] MEDS: FOLIC ACID 1 MG TABLET PO SCH (09:26)
[2017-03-25] MEDS: DOCUSATE SODIUM 100 MG CAPSULE PO SCH ×2 (09:26→17:08)
[2017-03-25] MEDS: MULTIVITAMIN TABLET PO SCH (09:26)
[2017-03-25] MEDS: DIAZEPAM 5 MG TABLET PO SCH ×3 (09:26→21:17)
[2017-03-25] MEDS: METOPROLOL TARTRATE 50 MG TABLET PO SCH ×2 (09:27→21:17)
[2017-03-25] MEDS ORDERED: THIAMINE HCL 100 MG, FOLIC ACID 1 MG in NORMAL SALINE 50 ML IV SCH (10:00)
[2017-03-25] MEDS ORDERED: LORAZEPAM 1 MG TABLET PO SCH ×2 (10:00)
[2017-03-25] MEDS: RIVAROXABAN 15 MG TABLET PO SCH (16:27)
[2017-03-25] MEDS ORDERED: OXYCODONE HCL IR 5 MG TABLET PO PRN (16:32)
--- NOTE | 2017-03-25 16:59 | PDOC PROGRESS REPORT ---
Subjective Progress Note for:: 03/25/17 Subjective:: Patient reports at home that he normally uses a [employer]. Patient denies chest pain, shortness of breath, abdominal pain, nausea, vomiting , fevers, chills, diarrhea, constipation, headache, new onset weakness. Reports his last bowel movement was 2 days ago. Complains of right lower extremity pain Physical Exam Vital Signs: Temp Pulse Resp BP Pulse Ox 97.5 F 61 19 146/72 H 100 03/25/17 02:45 03/25/17 02:45 03/25/17 02:45 03/25/17 02:45 03/25/17 02:45 Intake & Output 03/24/17 03/25/17 03/26/17 06:59 06:59 06:59 Intake Total 600 Balance 600 Weight 96.2 kg Exam: General: Awake alert and oriented x3, no acute respiratory distress HEENT: AT/NC, PERRL, EOMI, oropharynx is moist, pink, no scleral icterus, no conjunctival injection Neck: No JVD, trachea midline Chest: occasional rhonchi that clear with cough CV: Regular rate and rhythm, normal S1 and S2, no murmur, rub, or gallop Abdomen: Soft, nontender to palpation, nondistended, active bowel sounds; no rebound, rigidity, or guarding Extremities: No cyanosis, clubbing; 3+ edema RLE Neuro: Cranial nerves II through XII are grossly intact without focal deficits; awake alert and oriented x3 Psych: Normal mood and affect Results Laboratory Results: 03/25/17 03:44 03/25/17 03:44 03/25/17 03/25/17 03/25/17 03:44 03:44 03:44 WBC 5.9 RBC 3.18 L Hgb 11.6 L Hct 33.8 L MCV 106 H MCH 36.5 H MCHC 34.4 RDW 15.9 H Plt Count 98 L Seg Neutrophils % 41.0 L Lymphocytes % 46.4 H Monocytes % 7.7 Eosinophils % 3.9 Basophils % 1.0 Absolute Neutrophils 2.4 Absolute Lymphocytes 2.8 Absolute Monocytes 0.5 Absolute Eosinophils 0.2 Absolute Basophils 0.1 Sodium 142.8 Potassium 3.7 Chloride 109 H Carbon Dioxide 23 Anion Gap 11 BUN 11 Creatinine 0.85 Est GFR ( Amer) > 60 Est GFR (Non-Af Amer) > 60 Glucose 92 Calcium 7.8 L Magnesium 1.8 Total Bilirubin 0.3 AST 13 L ALT 24 Alkaline Phosphatase 85 Total Protein 5.5 L Albumin 3.1 L Assessment & Plan - Diagnosis (1) Dvt femoral (deep venous thrombosis) Qualifiers: Chronicity: acute Laterality: right Qualified Code(s): I82.411 - Acute embolism and thrombosis of right femoral vein Is this a current diagnosis for this admission?: YesPlan: Place patient on Xarelto. Suspect noncompliance at home. Patient to be evaluated by physical therapy for fall risk. (2) COPD (chronic obstructive pulmonary disease) Qualifiers: COPD type: unspecified COPD Qualified Code(s): J44.9 - Chronic obstructive pulmonary disease, unspecified Is this a current diagnosis for this admission?: YesPlan: Place patient on Spiriva. As needed albuterol treatments (3) Alcohol abuse Is this a current diagnosis for this admission?: YesPlan: Place on scheduled Valium, thiamine, folic acid, multivitamin. (4) Alcohol intoxication Qualifiers: Complication of substance-induced condition: uncomplicated Qualified Code(s): F10.920 - Alcohol use, unspecified with intoxication, uncomplicated Is this a current diagnosis for this admission?: Yes (5) CAD (coronary artery disease) Qualifiers: Coronary Disease-Associated Artery/Lesion type: [place] artery [place] vs. transplanted heart: [place] heart Associated angina: without angina Qualified Code(s): I25.10 - Atherosclerotic heart disease of [place] coronary artery without angina pectoris Is this a current diagnosis for this admission?: YesPlan: On aspirin, metoprolol, and lisinopril (6) HTN (hypertension) Qualifiers: Hypertension type: essential hypertension Qualified Code(s): I10 - Essential (primary) hypertension Is this a current diagnosis for this admission?: YesPlan: Continue home medications (7) History of CVA (cerebrovascular accident) Is this a current diagnosis for this admission?: Yes (8) History of abdominal aortic aneurysm repair Is this a current diagnosis for this admission?: Yes (9) History of pulmonary embolism Is this a current diagnosis for this admission?: Yes (10) Tobacco dependency Is this a current diagnosis for this admission?: YesPlan: Encourage cessation - Time Time Spent with patient: 15-24 minutes Medications reviewed and adjusted accordingly: Yes Anticipated discharge: Home Within: within 24 hours
--- NOTE | 2017-03-25 18:52 | XCELERA REPORT ---
[address] [address] Lower Extremity Venous Evaluation Name: HEIDI HEREDIA JR Age: 81 yrs Gender: Male : 1935 Patient Status: Emergency Patient Location: ER Study Date: 03/24/2017 10:31 PM Procedure: Color flow and duplex imaging of the veins of the right lower extremity as well as the left Common Femoral vein. Reason For Study: right leg swelling, prior LLE DVT Ordering Physician: COLE MCCLURE Performed By: George Hernandes Right Sided Venous Evaluation Abnormal vessel filling , no compression and lack of Colour flow, enlarged veins from the Common Femoral to the Popliteal. Acute. Quite impressive subcutaneous edema. Left Sided Venous Evaluation The left common femoral vein is fully compressible. Spontaneous and phasic flow is present in the left common femoral vein. Critical Findings Discussed with Dr Mcclure. Interpretation Summary Extensive, acute DVT on the right. : COLE MCCLURE > Kvng Gaffney
[2017-03-25] MEDS: LISINOPRIL 10 MG TABLET PO SCH (21:17)
[2017-03-25] MEDS ORDERED: ATORVASTATIN CALCIUM 10 MG TABLET PO SCH (22:00)
[2017-03-26] MEDS: DIAZEPAM 5 MG TABLET PO SCH (03:47)
[2017-03-26 06:26] LABS: ABSOLUTE BASOPHILS # (AUTO) 0.1 10^3/uL (0.0-0.2); ABSOLUTE EOSINOPHILS # (AUTO) 0.4 10^3/uL (0.0-0.6); ABSOLUTE LYMPHOCYTES (AUTO) 1.9 10^3/uL (0.5-4.7); ABSOLUTE MONOCYTES (AUTO) 0.5 10^3/uL (0.1-1.4); ABSOLUTE NEUT (AUTO) 3.1 10^3/uL (1.7-8.2); BASOPHILS % (AUTO) 1.5 % (0-2); EOSINOPHILS % (AUTO) 5.9 % (0-6); HEMATOCRIT 32.9 % (37.9-51.0); HEMOGLOBIN 11.2 g/dL (13.5-17.0); HGB HCT DIFFERENCE 0.7; LYMPHOCYTES % (AUTO) 32.2 % (13-45); MEAN CORPUSCULAR HEMOGLOBIN 36.2 pg (27.0-33.4); MEAN CORPUSCULAR HGB CONC 34.2 g/dL (32.0-36.0); MEAN CORPUSCULAR VOLUME 106 fl (80-97); MONOCYTES % (AUTO) 8.3 % (3-13); RED BLOOD COUNT 3.11 10^6/uL (4.35-5.55); RED CELL DISTRIBUTION WIDTH 15.7 % (11.5-14.0); SEGMENTED NEUTROPHILS % (AUTO) 52.1 % (42-78)
[2017-03-26 06:38] LABS: ALANINE AMINOTRANSFERASE 24 U/L (21-72); ALBUMIN 2.9 g/dL (3.5-5.0); ALKALINE PHOSPHATASE 76 U/L (38-126); ANION GAP 5 (5-19); ASPARTATE AMINO TRANSFERASE 16 U/L (17-59); BILIRUBIN,DIRECT 0.2 mg/dL (0.0-0.4); BILIRUBIN,TOTAL 0.4 mg/dL (0.2-1.3); BLOOD UREA NITROGEN 15 mg/dL (7-20); CALCIUM 8.3 mg/dL (8.4-10.2); CARBON DIOXIDE 24 mmol/L (22-30); CHLORIDE 111 mmol/L (98-107); CREATININE RESULT 0.89 mg/dL (0.52-1.25); GLUCOSE 107 mg/dL (75-110); POTASSIUM 3.5 mmol/L (3.6-5.0); SODIUM 139.8 mmol/L (137-145); TOTAL PROTEIN 5.7 g/dL (6.3-8.2)
[2017-03-26] MEDS ORDERED: CEFTRIAXONE 1 GM/D5W RTU 50 ML IV SCH (08:00)
[2017-03-26] MEDS: IPRATROPIUM/ALBUTEROL 0.5-2.5 MG/3 ML AMPUL NEB SCH (08:27)
[2017-03-26] MEDS: RIVAROXABAN 15 MG TABLET PO SCH (08:57)
[2017-03-26] MEDS ORDERED: AMLODIPINE BESYLATE 10 MG TABLET PO SCH (10:00)
[2017-03-26] MEDS ORDERED: TIOTROPIUM BROMIDE DPI 5 CAP/KIT (18 MCG/CAP) IH SCH (10:00)
[2017-03-26] MEDS ORDERED: CIPROFLOXACIN HCL 500 MG TABLET PO SCH (10:00)
[2017-03-26] MEDS: LISINOPRIL 10 MG TABLET PO SCH (10:09)
[2017-03-26] MEDS: FOLIC ACID 1 MG TABLET PO SCH (10:10)
[2017-03-26] MEDS: MULTIVITAMIN TABLET PO SCH (10:10)
[2017-03-26] MEDS: METOPROLOL TARTRATE 50 MG TABLET PO SCH (10:11)
[2017-03-26] MEDS: FINASTERIDE 5 MG TABLET PO SCH (10:11)
[2017-03-26] MEDS: THIAMINE HCL 100 MG TABLET PO SCH (10:11)
[2017-03-26] MEDS: DOCUSATE SODIUM 100 MG CAPSULE PO SCH (10:29)
[2017-03-26 10:53] VITALS: BP 127/49
--- NOTE | 2017-03-26 15:27 | PDOC DISCHARGE SUMMARY ---
General - Admit/Disc Date/PCP Admission Date/Primary Care Provider: 03/25/17 00:18 Discharge Date: 03/26/17 - Discharge Diagnosis (1) Dvt femoral (deep venous thrombosis) Is this a current diagnosis for this admission?: Yes (2) COPD (chronic obstructive pulmonary disease) Is this a current diagnosis for this admission?: Yes (3) Alcohol abuse Is this a current diagnosis for this admission?: Yes (4) Alcohol intoxication Is this a current diagnosis for this admission?: Yes (5) CAD (coronary artery disease) Is this a current diagnosis for this admission?: Yes (6) HTN (hypertension) Is this a current diagnosis for this admission?: Yes (7) History of CVA (cerebrovascular accident) Is this a current diagnosis for this admission?: Yes (8) History of abdominal aortic aneurysm repair Is this a current diagnosis for this admission?: Yes (9) History of pulmonary embolism Is this a current diagnosis for this admission?: Yes (10) Tobacco dependency Is this a current diagnosis for this admission?: Yes (11) AAA (abdominal aortic aneurysm) without rupture Is this a current diagnosis for this admission?: Yes - Additional Information Discharge Diet: Cardiac Discharge Activity: Activity As Tolerated Home Medications: Acetaminophen [Tylenol 325 mg Tablet] 325 mg PO Q6HP PRN 03/25/17 Amlodipine Besylate [Norvasc 10 mg Tablet] 10 mg PO DAILY 03/25/17 Atorvastatin Calcium [Lipitor 10 mg Tablet] 10 mg PO QHS 03/25/17 Butalbital/Acetaminophen [Butalbital-Acetaminophn 50-325] 1 tab PO Q6HP PRN Lisinopril [Zestril] 10 mg PO Q12 03/25/17 Metoprolol Tartrate [Lopressor 50 mg Tablet] 50 mg PO Q12 03/25/17 Albuterol Sulfate [Ventolin HFA MDI 18 GM] 1 - 2 puff IH Q4H PRN #1 mdi Ciprofloxacin HCl [Cipro 500 mg Tablet] 250 mg PO Q12 #10 tablet 03/26/17 Docusate Sodium [Colace 100 mg Capsule] 100 mg PO BID #60 capsule 03/26/17 Folic Acid [Folvite 1 mg Tablet] 1 mg PO DAILY #90 tablet 03/26/17 Oxycodone HCl [Oxy-Ir 5 mg Tablet] 5 mg PO Q6HP PRN #10 tablet 03/26/17 Rivaroxaban [Xarelto 15 mg Tablet] 15 mg PO BIDBS #42 tablet 03/26/17 Thiamine HCl [Thiamine 100 mg Tablet] 100 mg PO DAILY #90 tablet 03/26/17 Tiotropium [place] [Spiriva [place] 5 Cap/Kit (18 Mcg/Cap)] 1 cap IH DAILY # 1 kit 03/26/17 History of Present Illness History of Present Illness: HEIDI HEREDIA JR is a 81 year old male history of DVT presents to the ED with complaints of choric lower extremity edema. Patient also complains of pain below his right knee. Patient is on blood thinners but he is unsure what one, he has no change in medications since his hospitalization here in November 24, 2016. Patient states that the right leg is more swollen than normal but is always more swollen than the left leg. After reviewing all records, Doppler and the patients record it shows a DVT in the left lower extremity. Patient states nothing is new or different tonight. No other concerns or complaints at this time. Hospital Course Hospital Course: Patient was found to be mildly confused and intoxicated in the emergency department and was admitted to the hospitalist service. According to this patient's son, patient's primary care physician stopped his Xarelto several months ago. He apparently was diagnosed with new bilateral [facility] ago. However, patient is on Xarelto 20 mg , which is in appropriate dosing for acute phase. Patient was attempted on Lovenox, but had a drop in his platelets which improved after stopping Lovenox. Patient was able to tolerate Xarelto without any decrease in platelets or overt bleeding. Patient was also found to have UTI on UA, and given Rocephin and transitioned to oral Cipro. Culture is pending at the time of this dictation. I did discuss CODE STATUS, risk of increased bleeding, spontaneous bleeding, and concerns for falls in this patient with his son. At this time, due to patient's proclivity for drinking and using tobacco, I recommend that they have a candid discussion with each other about his goals for his health. They were provided with a most form. Patient was feeling well, and requesting discharge. Patient's son is advised to have aneurysm followed within 6 months. Physical Exam Vital Signs: Temp Pulse Resp BP Pulse Ox 97.5 F 70 16 127/49 H 97 03/26/17 10:50 03/26/17 10:50 03/26/17 10:50 03/26/17 10:50 03/26/17 10:50 Intake & Output 03/25/17 03/26/17 03/27/17 06:59 06:59 06:59 Intake Total 600 1922 240 Output Total 375 Balance 600 1547 240 Weight 96.2 kg 96.2 kg Exam: General: Awake alert and oriented x3, no acute respiratory distress HEENT: AT/NC, PERRL, EOMI, oropharynx is moist, pink, no scleral icterus, no conjunctival injection Neck: No JVD, trachea midline Chest: CTAB CV: Regular rate and rhythm, normal S1 and S2, no murmur, rub, or gallop Abdomen: Soft, nontender to palpation, nondistended, active bowel sounds; no rebound, rigidity, or guarding Extremities: No cyanosis, clubbing; 3+ edema RLE Neuro: Cranial nerves II through XII are grossly intact without focal deficits; awake alert and oriented x3 Psych: Normal mood and affect Results Laboratory Results: 03/26/17 06:16 03/26/17 06:16 03/26/17 03/26/17 06:16 06:16 WBC 6.0 RBC 3.11 L Hgb 11.2 L Hct 32.9 L MCV 106 H MCH 36.2 H MCHC 34.2 RDW 15.7 H Plt Count 115 L Seg Neutrophils % 52.1 Lymphocytes % 32.2 Monocytes % 8.3 Eosinophils % 5.9 Basophils % 1.5 Absolute Neutrophils 3.1 Absolute Lymphocytes 1.9 Absolute Monocytes 0.5 Absolute Eosinophils 0.4 Absolute Basophils 0.1 Sodium 139.8 Potassium 3.5 L Chloride 111 H Carbon Dioxide 24 Anion Gap 5 BUN 15 Creatinine 0.89 Est GFR ( Amer) > 60 Est GFR (Non-Af Amer) > 60 Glucose 107 Calcium 8.3 L Total Bilirubin 0.4 AST 16 L ALT 24 Alkaline Phosphatase 76 Total Protein 5.7 L Albumin 2.9 L Qualifiers PATEINT BEING DISCHARGED WITH ANY OF THE FOLLOWING DIAGNOSIS?: VTE (PE or DVT) VTE patient discharged on overlapping Therapy?: No Reason(s) for not prescribing Overlap Therapy:: Tx not tolerated - thrombocytopenia Plan Time Spent: Greater than 30 Minutes - Total time spent with patient including patient education, physical examination, discussion with consultants, and formulation of plan was 60 minutes.
--- NOTE | 2017-04-10 05:28 | PDOC H&P ---
History of Present Illness Admission Date/PCP: 03/25/17 00:18 History of Present Illness: HEIDI HEREDIA JR is a 81 year old male history of left leg DVT presents to the ED with complaints of choric lower extremity edema. Patient also complains of pain below his right knee. Patient is on blood thinners but he is unsure what one, he has no change in medications since his hospitalization here in November. Patient states that the right leg venous Doppler was positive for extensive DVT in the right leg. He is referred to the hospitalist for admission. He denies chest pain shortness of breath palpitations nausea vomiting. Past Medical History Cardiac Medical History: Reports: DVT - LLE, Myocardial Infarction, Hypertension , Pulmonary Embolism Denies: Hyperlipidema Pulmonary Medical History: Denies: Asthma, Chronic Obstructive Pulmonary Disease (COPD), Sleep Apnea Neurological Medical History: Denies: Seizures Endocrine Medical History: Reports: Diabetes Mellitus Type 2 - Borderline diabetes mellitus, without necessary medications, per patient. Denies: Diabetes Mellitus Type 1, Hyperthyroidism, Hypothyroidism GI Medical History: Denies: Cirrhosis, Gastroesophageal Reflux Disease, Hepatitis Musculoskeltal Medical History: Reports: Arthritis Psychiatric Medical History: Denies: Depression Infectious Medical History: Denies: Clostridium Difficile, Methicillin-Resistant Staph Aureus Past Surgical History Past Surgical History: Reports: Cardiac Catheterization - with stent placement, Orthopedic Surgery, Vascular Surgery - AAA repair Social History Smoking Status: Current Every Day Smoker Cigars Per Day: 2 Frequency of Alcohol Use: Heavy Hx Recreational Drug Use: No Drugs: None Hx Prescription Drug Abuse: No - Advance Directive Resuscitation Status: Full Code Family History Family History: Hypertension Parental Family History Reviewed: Yes Children Family History Reviewed: Yes Sibling(s) Family History Reviewed.: Yes Medication/Allergy Home Medications: Acetaminophen [Tylenol 325 mg Tablet] 325 mg PO Q6HP PRN 03/25/17 Amlodipine Besylate [Norvasc 10 mg Tablet] 10 mg PO DAILY 03/25/17 Atorvastatin Calcium [Lipitor 10 mg Tablet] 10 mg PO QHS 03/25/17 Butalbital/Acetaminophen [Butalbital-Acetaminophn 50-325] 1 tab PO Q6HP PRN Lisinopril [Zestril] 10 mg PO Q12 03/25/17 Metoprolol Tartrate [Lopressor 50 mg Tablet] 50 mg PO Q12 03/25/17 Albuterol Sulfate [Ventolin HFA MDI 18 GM] 1 - 2 puff IH Q4H PRN #1 mdi Ciprofloxacin HCl [Cipro 500 mg Tablet] 250 mg PO Q12 #10 tablet 03/26/17 Docusate Sodium [Colace 100 mg Capsule] 100 mg PO BID #60 capsule 03/26/17 Folic Acid [Folvite 1 mg Tablet] 1 mg PO DAILY #90 tablet 03/26/17 Oxycodone HCl [Oxy-Ir 5 mg Tablet] 5 mg PO Q6HP PRN #10 tablet 03/26/17 Rivaroxaban [Xarelto 15 mg Tablet] 15 mg PO BIDBS #42 tablet 03/26/17 Thiamine HCl [Thiamine 100 mg Tablet] 100 mg PO DAILY #90 tablet 03/26/17 Tiotropium [place] [Spiriva Handihaler 5 Cap/Kit (18 Mcg/Cap)] 1 cap IH DAILY # 1 kit 03/26/17 Allergies/Adverse Reactions: No Known Allergies Allergy (Verified 10/23/16 18:43) Review of Systems Constitutional: ABSENT: chills, fever(s), headache(s), weight gain, weight loss Eyes: ABSENT: visual disturbances Ears: ABSENT: hearing changes Cardiovascular: ABSENT: chest pain, dyspnea on exertion, edema, orthropnea, palpitations Respiratory: ABSENT: cough, hemoptysis Gastrointestinal: ABSENT: abdominal pain, constipation, diarrhea, hematemesis, hematochezia, nausea, vomiting Genitourinary: ABSENT: dysuria, hematuria Musculoskeletal: PRESENT: other - Chronic lower extremity edema. ABSENT: joint swelling Integumentary: ABSENT: rash, wounds Neurological: ABSENT: abnormal gait, abnormal speech, confusion, dizziness, focal weakness, syncope Psychiatric: ABSENT: anxiety, depression, homidical ideation, suicidal ideation Endocrine: ABSENT: cold intolerance, heat intolerance, polydipsia, polyuria Hematologic/Lymphatic: ABSENT: easy bleeding, easy bruising Physical Exam Vital Signs: Temp Pulse Resp BP Pulse Ox 97.5 F 70 16 127/49 H 97 03/26/17 10:50 03/26/17 10:50 03/26/17 10:50 03/26/17 10:50 03/26/17 10:50 General appearance: PRESENT: cooperative, disheveled, mild distress Head exam: PRESENT: atraumatic, normocephalic Eye exam: PRESENT: conjunctiva pink, EOMI, PERRLA. ABSENT: scleral icterus Ear exam: PRESENT: normal external ear exam Mouth exam: PRESENT: moist, tongue midline Neck exam: ABSENT: carotid bruit, JVD, lymphadenopathy, thyromegaly Respiratory exam: PRESENT: clear to auscultation percy, prolonged expiratory phas. ABSENT: rales, rhonchi, wheezes Cardiovascular exam: PRESENT: RRR. ABSENT: diastolic murmur, rubs, systolic murmur Pulses: PRESENT: normal dorsalis pedis pul Vascular exam: PRESENT: normal capillary refill, other - Chronic lower extremity edema GI/Abdominal exam: PRESENT: normal bowel sounds, soft. ABSENT: distended, guarding, mass, organolmegaly, rebound, tenderness Rectal exam: PRESENT: deferred Extremities exam: PRESENT: pedal edema, +2 edema Neurological exam: PRESENT: alert, awake, oriented to person, oriented to place , oriented to time, oriented to situation, CN II-XII grossly intact. ABSENT: motor sensory deficit Psychiatric exam: PRESENT: appropriate affect, normal mood. ABSENT: homicidal ideation, suicidal ideation Skin exam: PRESENT: dry, intact, warm. ABSENT: cyanosis, rash Results Laboratory Results: 03/26/17 06:16 03/26/17 06:16 Assessment & Plan - Diagnosis (1) Deep venous thrombosis Qualifiers: DVT location: lower extremity Affected thrombotic vein of extremity: femoral Chronicity: acute Laterality: left Qualified Code(s): I82.412 - Acute embolism and thrombosis of left femoral vein Is this a current diagnosis for this admission?: YesPlan: Secondary to chronic stasis and immobility no history of trauma. Apparent treatment failure with Xarelto full dose Lovenox trial initiated, follow-up CBC (2) Alcohol abuse, continuous Is this a current diagnosis for this admission?: YesPlan: No intent for cessation, thiamine folate as needed Ativan with supportive care (3) COPD (chronic obstructive pulmonary disease) Qualifiers: COPD type: unspecified COPD Qualified Code(s): J44.9 - Chronic obstructive pulmonary disease, unspecified Is this a current diagnosis for this admission?: YesPlan: Incentive spirometry, albuterol and Atrovent, consider flutter valve. - Time Time Spent: 30 to 50 Minutes - Inpatient Certification Medical Necessity: Need Close Monitoring Due to Risk of Patient Decompensation
== END 2017-03-26 11:48 | disposition home or self-care (01) | DRG 300 ==
LOC: ER 20:55 → EH 03-25 00:18 → UNDOADMIN 03-25 01:01 → EH 03-25 01:01 → 4S 03-25 02:36
PROVIDERS: ADMIT Internal Medicine; ATTEND Internal Medicine
DX: I82.411 Acute embolism and thrombosis of right femoral vein (principal); N39.0 Urinary tract infection, site not specified; I82.431 Acute embolism and thrombosis of right popliteal vein; E11.9 Type 2 diabetes mellitus without complications; J44.9 Chronic obstructive pulmonary disease, unspecified; I25.10 Atherosclerotic heart disease of native coronary artery without angina pectoris; I10 Essential (primary) hypertension; I71.4 Abdominal aortic aneurysm, without rupture; M19.90 Unspecified osteoarthritis, unspecified site; F10.129 Alcohol abuse with intoxication, unspecified; F17.210 Nicotine dependence, cigarettes, uncomplicated; Y90.7 Blood alcohol level of 200-239 mg/100 ml; Z86.718 Personal history of other venous thrombosis and embolism; Z79.01 Long term (current) use of anticoagulants; Z86.73 Personal history of transient ischemic attack (TIA), and cerebral infarction without residual deficits
CPT/HCPCS: 36415; 80053; 80307; 81001; 83735; 85025; 85379; 85610; 85730; 87086; 87088; 87186; 93971; 94640; 99285; J0696; J1650; J3411; J3490; J7030; J7620

== ENCOUNTER 2017-04-10 20:30 | Emergency (ER) | payer OTHER, MEDICARE, MEDICAID ==
--- NOTE | 2017-04-10 21:40 | ER Document Report ---
ED General - General Chief Complaint: Leg Swelling Stated Complaint: LEG SWELLING Time Seen by Provider: 04/10/17 21:26 Notes: Patient is an 81-year-old male with a history of bilateral lower extremity DVTs , recently diagnosed with a large left lower extremity DVT extending from the femoral vein who presents with concerns of bilateral lower extremity swelling and pain worse on the left. Admits that he stopped taking his Jennifer after he washed a commercial on television that said that this is a dangerous medication. He also has not been using compression stockings. Does describe the pain as a dull, throbbing, constant, aching pain. It is worsened by movement. Nothing improves the pain. He has not seen his primary care doctor regarding today's concerns. TRAVEL OUTSIDE OF THE [place] IN LAST 30 DAYS: No - Related Data Allergies/Adverse Reactions: No Known Allergies Allergy (Verified 10/23/16 18:43) Past Medical History - General Information source: Patient - Social History Smoking Status: Current Every Day Smoker Frequency of alcohol use: Heavy Drug Abuse: None Lives with: Alone Family History: Hypertension Patient has suicidal ideation: No Patient has homicidal ideation: No - Past Medical History Cardiac Medical History: Reports: Hx DVT - LLE, Hx Heart Attack, Hx Hypertension , Hx Pulmonary Embolism Denies: Hx Hypercholesterolemia Pulmonary Medical History: Denies: Hx Asthma, Hx COPD, Hx Sleep Apnea Neurological Medical History: Reports: Hx Cerebrovascular Accident. Denies: Hx Seizures Endocrine Medical History: Reports: Hx Diabetes Mellitus Type 2 - Borderline diabetes mellitus, without necessary medications, per patient.. Denies: Hx Diabetes Mellitus Type 1, Hx Hyperthyroidism, Hx Hypothyroidism Renal/ Medical History: Denies: Hx Peritoneal Dialysis GI Medical History: Denies: Hx Cirrhosis, Hx Gastroesophageal Reflux Disease, Hx Hepatitis Musculoskeltal Medical History: Reports Hx Arthritis Psychiatric Medical History: Denies: Hx Depression Infectious Medical History: Denies: Hx C-Diff, Hx Hepatitis, Hx MRSA Past Surgical History: Reports: Hx Abdominal Surgery, Hx Cardiac Catheterization - with stent placement, Hx Cardiac Surgery - Cardiac Stent, Hx Open Heart Surgery, Hx Orthopedic Surgery, Hx Vascular Surgery - AAA repair - Immunizations Hx Diphtheria, Pertussis, Tetanus Vaccination: Yes - Unknown Review of Systems - Review of Systems Notes: Constitutional: Negative for fever. HENT: Negative for sore throat. Eyes: Negative for visual changes. Cardiovascular: Negative for chest pain. Respiratory: Negative for shortness of breath. Gastrointestinal: Negative for abdominal pain, vomiting or diarrhea. Genitourinary: Negative for dysuria. Musculoskeletal: Positive for bilateral lower extremity pain Skin: Negative for rash. Neurological: Negative for headaches, weakness or numbness. 10 point ROS negative except as marked above and in HPI. Physical Exam - Vital signs Vitals: Temp Pulse Resp BP Pulse Ox 98.3 F 69 18 120/51 L 96 04/10/17 20:37 04/10/17 20:37 04/10/17 20:37 04/10/17 20:37 04/10/17 20:37 Interpretation: Normal Notes: PHYSICAL EXAMINATION: GENERAL: Well-appearing, well-nourished and in no acute distress. HEAD: Atraumatic, normocephalic. EYES: Pupils equal round and reactive to light, extraocular movements intact, sclera anicteric, conjunctiva are normal. ENT: nares patent, oropharynx clear without exudates. Moist mucous membranes. NECK: Normal range of motion, supple without lymphadenopathy LUNGS: Breath sounds clear to auscultation bilaterally and equal. No wheezes rales or rhonchi. HEART: Regular rate and rhythm without murmurs ABDOMEN: Soft, nontender, normoactive bowel sounds. No guarding, no rebound. No masses appreciated. EXTREMITIES: Normal range of motion, 4+ pitting edema in the left lower extremity, 2+ in the right. NEUROLOGICAL: No focal neurological deficits. Moves all extremities spontaneously and on command. PSYCH: Normal mood, normal affect. SKIN: Warm, Dry, normal turgor, no rashes or lesions noted. Course - Re-evaluation Re-evalutation: 04/10/17 21:36 Patient presents with bilateral lower extremity edema left much worse than right. Patient has a known very large left lower extremity DVT that was seen on a venous Doppler study at the end of March. Patient admits to complete noncompliance with his rivaroxaban therapy stating he stopped the medication several days after he was discharged due to seeing ads on television stating that this was a dangerous drug. This would explain why patient is having worsening edema and he is also discontinued his compression stockings at home. He denies anything is otherwise new or different and his main concern is that the pain is worsening due to the worsening edema in the left lower extremity in particular. I had an extensive conversation with this patient about the risks of continuing to not take his anticoagulation and the need to wear compression stockings at all times in order to reduce the edema of his lower extremities which will help with his pain. Patient verbalized an understanding that he is putting his life at significant risk by continuing to withhold his anticoagulation without consulting with his physicians and that he will restart this medication as soon as he goes home. He does have compression stockings at home that he can wear and has declined is providing him here in the emergency department. He does not require new imaging or labs today. At this time will discharge with return precautions and follow-up recommendations. Verbal discharge instructions given a the bedside and opportunity for questions given. Medication warnings reviewed. Patient is in agreement with this plan and has verbalized understanding of return precautions and the need for primary care follow-up in the next 24-72 hours. - Vital Signs Vital signs: Temp Pulse Resp BP Pulse Ox 98.8 F 74 18 150/65 H 93 04/10/17 22:17 04/10/17 22:17 04/10/17 22:17 04/10/17 22:17 04/10/17 22:17 Discharge - Discharge Clinical Impression: History of DVT of lower extremity, Bilateral lower extremity edema Condition: Good Disposition: HOME, SELF-CARE Additional Instructions: You need to take the rivaroxaban also known as Xarelto that you were prescribed. Your swelling will not get better unless we treat the DVT and this drug is the therapy for that condition. Please wear the compression stockings at all times which will reduce the swelling in your legs. Return if you develop shortness of breath, worsening pain, chest pain, or any other symptoms that are worrisome to you.
[2017-04-10 22:24] VITALS: BP 150/65
== END 2017-04-10 23:30 | disposition home or self-care (01) ==
LOC: ER 20:30
DX: M79.89 Other specified soft tissue disorders (principal)
CPT/HCPCS: 99283

== ENCOUNTER 2017-05-18 19:08 | Emergency (ER) | payer OTHER, MEDICARE, MEDICAID ==
--- NOTE | 2017-05-18 19:41 | ER Document Report ---
ED Medical Screen (RME) - General Chief Complaint: Headache Stated Complaint: HEADACHE Time Seen by Provider: 05/18/17 19:40 Mode of Arrival: Medic Information source: Patient TRAVEL OUTSIDE OF THE [place] IN LAST 30 DAYS: No - HPI Patient complains to provider of: MYERS Onset: Other - pt states he doesn't normally get MYERS but has had a continual one for the past several weeks. Denies N/V/photophobia - Related Data Allergies/Adverse Reactions: No Known Allergies Allergy (Verified 10/23/16 18:43) Past Medical History - Social History Chew tobacco use (# tins/day): No Frequency of alcohol use: couple shots a day Drug Abuse: None - Past Medical History Cardiac Medical History: Reports: Hx Congestive Heart Failure, Hx DVT - LLE, Hx Heart Attack, Hx Hypertension, Hx Pulmonary Embolism Denies: Hx Hypercholesterolemia Pulmonary Medical History: Denies: Hx Asthma, Hx COPD, Hx Sleep Apnea Neurological Medical History: Reports: Hx Cerebrovascular Accident. Denies: Hx Seizures Endocrine Medical History: Reports: Hx Diabetes Mellitus Type 2 - Borderline diabetes mellitus, without necessary medications, per patient.. Denies: Hx Diabetes Mellitus Type 1, Hx Hyperthyroidism, Hx Hypothyroidism Renal/ Medical History: Denies: Hx Peritoneal Dialysis GI Medical History: Denies: Hx Cirrhosis, Hx Gastroesophageal Reflux Disease, Hx Hepatitis Musculoskeltal Medical History: Reports Hx Arthritis Psychiatric Medical History: Denies: Hx Depression Infectious Medical History: Denies: Hx C-Diff, Hx Hepatitis, Hx MRSA Past Surgical History: Reports: Hx Abdominal Surgery, Hx Cardiac Catheterization - with stent placement, Hx Cardiac Surgery - Cardiac Stent, Hx Open Heart Surgery, Hx Orthopedic Surgery, Hx Vascular Surgery - AAA repair - Immunizations Hx Diphtheria, Pertussis, Tetanus Vaccination: Yes - Unknown Physical Exam - Vital signs Vitals: Temp Pulse Resp BP Pulse Ox 98.5 F 72 16 109/51 L 96 05/18/17 19:26 05/18/17 19:26 05/18/17 19:05/18/17 19:05/18/17 19:26 Course - Vital Signs Vital signs: Temp Pulse Resp BP Pulse Ox 98.5 F 72 16 109/51 L 96 05/18/17 19:26 05/18/17 19:26 05/18/17 19:05/18/17 19:05/18/17 19:26
[2017-05-18] MEDS ORDERED: TRAMADOL HCL 50 MG TABLET PO ONE (19:42)
--- NOTE | 2017-05-18 20:48 | RADIOLOGY REPORT (SQ) ---
EXAM DESCRIPTION: CT HEAD WITHOUT COMPLETED DATE/TIME: 05/18/2017 8:40 pm REASON FOR STUDY: MYERS COMPARISON: 06/02/2016 TECHNIQUE: Axial images acquired through the brain without intravenous contrast. Images reviewed wi th bone, brain and subdural windows. Images stored on PACS. All CT scanners at this facility use dose modulation, iterative reconstruction, and/or weight based d osing when appropriate to reduce radiation dose to as low as reasonably achievable (ALARA). [facility]: Dose Right [facility]: CareDose [facility]: Dose Right [facility]: Teradose 4D [facility]: Smart [facility] RADIATION DOSE: Up-to-date CT equipment and radiation dose reduction techniques were employed. CTDIv ol: 64.6 mGy. DLP: 1163 mGy-cm. mGy. LIMITATIONS: None. FINDINGS: VENTRICLES: Prominent. CEREBRUM: No masses. No hemorrhage. No midline shift. Areas of low density in the white matter mos t likely due to chronic micro-vascular ischemic change. No evidence for acute infarction. CEREBELLUM: No masses. No hemorrhage. No alteration of density. No evidence for acute infarction. EXTRAAXIAL SPACES: Mild age-related involutional change. No fluid collections. No masses. ORBITS AND GLOBE: No intra- or extraconal masses. Normal contour of globe without masses. CALVARIUM: No fracture. PARANASAL SINUSES: No fluid or mucosal thickening. SOFT TISSUES: No mass or hematoma. OTHER: No other significant finding. IMPRESSION: MILD CHRONIC CHANGES OF ATROPHY AND MICROVASCULAR ISCHEMIA. NO ACUTE PROCESS. TECHNICAL DOCUMENTATION: JOB ID: [id number] Quality ID # [id number]: Final reports with documentation of one or more dose reduction techniques (e.g., Au tomated exposure control, adjustment of the mA and/or kV according to patient size, use of iterative reconstruction technique) 2010 [employer]- All Rights Reserved
[2017-05-18] MEDS ORDERED: PROCHLORPERAZINE EDISYLATE INJ 10 MG/2 ML VIAL IV ONE (22:15)
[2017-05-18] MEDS ORDERED: KETOROLAC TROMETHAMINE INJ/PF 30 MG/1 ML SDV IV ONE (22:15)
[2017-05-18] MEDS ORDERED: DIPHENHYDRAMINE HCL 50 MG/ML VIAL IV ONE (22:15)
--- NOTE | 2017-05-18 22:17 | ER Document Report ---
ED General - General Chief Complaint: Headache Stated Complaint: HEADACHE Time Seen by Provider: 05/18/17 19:40 Mode of Arrival: Medic Notes: Patient is an 82-year-old male with a past medical history of hypertension, chronic alcohol abuse, CHF, history of DVT, who presents with "months upon months" of a headache. He describes it as a dull, constant, aching bitemporal headache. States he has been seen by his primary care doctor on multiple occasions for this concern and had an extensive evaluation including laboratories and imaging of the head all of which have been unrevealing and unable to explain the source of the headaches. He denies any associated weakness, numbness or altered mental status. No fever or constitutional symptoms. He has tried Fioricet without any significant improvement. Nothing worsens the headache. Nothing is new or different about the headache today that prompted him to come to the emergency department. TRAVEL OUTSIDE OF THE [place] IN LAST 30 DAYS: No - Related Data Allergies/Adverse Reactions: No Known Allergies Allergy (Verified 10/23/16 18:43) Past Medical History - General Information source: Patient - Social History Smoking Status: Current Every Day Smoker Chew tobacco use (# tins/day): No Frequency of alcohol use: couple shots a day Drug Abuse: None Lives with: Alone Family History: Hypertension Patient has suicidal ideation: No Patient has homicidal ideation: No - Past Medical History Cardiac Medical History: Reports: Hx Congestive Heart Failure, Hx DVT - LLE, Hx Heart Attack, Hx Hypertension, Hx Pulmonary Embolism Denies: Hx Hypercholesterolemia Pulmonary Medical History: Denies: Hx Asthma, Hx COPD, Hx Sleep Apnea Neurological Medical History: Reports: Hx Cerebrovascular Accident. Denies: Hx Seizures Endocrine Medical History: Reports: Hx Diabetes Mellitus Type 2 - Borderline diabetes mellitus, without necessary medications, per patient.. Denies: Hx Diabetes Mellitus Type 1, Hx Hyperthyroidism, Hx Hypothyroidism Renal/ Medical History: Denies: Hx Peritoneal Dialysis GI Medical History: Denies: Hx Cirrhosis, Hx Gastroesophageal Reflux Disease, Hx Hepatitis Musculoskeltal Medical History: Reports Hx Arthritis Psychiatric Medical History: Denies: Hx Depression Infectious Medical History: Denies: Hx C-Diff, Hx Hepatitis, Hx MRSA Past Surgical History: Reports: Hx Abdominal Surgery, Hx Cardiac Catheterization - with stent placement, Hx Cardiac Surgery - Cardiac Stent, Hx Open Heart Surgery, Hx Orthopedic Surgery, Hx Vascular Surgery - AAA repair - Immunizations Hx Diphtheria, Pertussis, Tetanus Vaccination: Yes - Unknown Review of Systems - Review of Systems Notes: Constitutional: Negative for fever. HENT: Negative for sore throat. Eyes: Negative for visual changes. Cardiovascular: Negative for chest pain. Respiratory: Negative for shortness of breath. Gastrointestinal: Negative for abdominal pain, vomiting or diarrhea. Genitourinary: Negative for dysuria. Musculoskeletal: Negative for back pain. Skin: Negative for rash. Neurological: Positive for headache 10 point ROS negative except as marked above and in HPI. Physical Exam - Vital signs Vitals: Temp Pulse Resp BP Pulse Ox 98.5 F 72 16 109/51 L 96 05/18/17 19:26 05/18/17 19:26 05/18/17 19:26 05/18/17 19:26 05/18/17 19:26 Notes: PHYSICAL EXAMINATION: GENERAL: Well-appearing, well-nourished and in no acute distress. HEAD: Atraumatic, normocephalic. EYES: Pupils equal round and reactive to light, extraocular movements intact, sclera anicteric, conjunctiva are normal. ENT: nares patent, oropharynx clear without exudates. Moist mucous membranes. NECK: Normal range of motion, supple without lymphadenopathy LUNGS: Breath sounds clear to auscultation bilaterally and equal. No wheezes rales or rhonchi. HEART: Regular rate and rhythm without murmurs ABDOMEN: Soft, nontender, normoactive bowel sounds. No guarding, no rebound. No masses appreciated. EXTREMITIES: Normal range of motion, 2+ pitting edema in the bilateral lower extremities. NEUROLOGICAL: Face symmetric. Tongue protrudes midline. Extraocular motions intact. Pupils are 2 mm and equally reactive. Normal speech, normal gait. 5 out of 5 strength in both the distal and proximal upper and lower extremities bilaterally. Sensation is grossly intact throughout. Finger to nose testing normal. Pronator drift normal. PSYCH: Normal mood, normal affect. SKIN: Warm, Dry, normal turgor, no rashes or lesions noted. Course - Re-evaluation Re-evalutation: 05/18/17 22:16 Presentation of a headache that appears to be most consistent with tension versus migrainous type headache. Patient reports that he has had this headache for "many months" and has had an extensive evaluation by his outpatient physician including CTs and MRIs of the head that have all been normal. Headache was not maximal in onset, patient has no focal neurologic deficits, no nuchal rigidity, vital signs within normal limits, no papilledema, and patient is overall well in appearance. Based on clinical history and examination I do not suspect an acute subarachnoid hemorrhage, dural venous sinus thrombosis, acute meningitis, or intercranial mass. Given my low clinical suspicion for any acute life-threatening etiology, I do not feel advanced neuro imaging or laboratory testing is indicated at this time. Will proceed with headache cocktail and reassess. 05/19/17 00:27 Patient has improvement of his headache. At this time will discharge with return precautions and follow-up recommendations. Verbal discharge instructions given a the bedside and opportunity for questions given. Medication warnings reviewed. Patient is in agreement with this plan and has verbalized understanding of return precautions and the need for primary care follow-up in the next 24-72 hours. 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 Please use Tylenol (acetaminophen) or Motrin (ibuprofen) as needed for symptoms, but only as written on the box. As we have discussed, please follow up with your primary care doctor as soon as possible regarding today's ED visit and your headache symptoms. Call your doctor or return to the ED if you have a worsening headache, sudden and severe headache, confusion, slurred speech, facial droop, weakness or numbness in any arm or leg, extreme fatigue, or other symptoms that concern you.
[2017-05-19 01:14] VITALS: BP 102/43
== END 2017-05-19 01:13 | disposition home or self-care (01) ==
LOC: ER 19:08
DX: G44.221 Chronic tension-type headache, intractable (principal); I50.9 Heart failure, unspecified; I11.0 Hypertensive heart disease with heart failure; F17.200 Nicotine dependence, unspecified, uncomplicated; R73.03 Prediabetes; Z86.718 Personal history of other venous thrombosis and embolism; Z86.711 Personal history of pulmonary embolism; Z86.73 Personal history of transient ischemic attack (TIA), and cerebral infarction without residual deficits; I25.2 Old myocardial infarction
CPT/HCPCS: 99284; 96374; 96375; 70450; J1200; J1885; J0780

== ENCOUNTER 2017-06-01 19:27 | Emergency (ER) | payer OTHER, MEDICARE, MEDICAID ==
--- NOTE | 2017-06-01 22:35 | ER Document Report ---
HPI - HPI Pain Level: 4 Notes: Patient is an 82-year-old male who presents ED complaining of chronic neck pain and chronic headache x "months." Patient states that he has been evaluated by his PCM with extensive workup no specific diagnosis. Patient was here about a week ago and had a CT scan of his head which was negative. He has been using prescription medication over the counter meds with minimal relief. The pain in his neck does not radiate and is described as an ache and is constant day after day. Patient states that there are days where his neck feels kind of tight when he is moving around like a muscle spasm. The pain does not cause any problems with ADLs. Patient states that he has not had any radiculitis or loss of strength in his upper extremities. Denies any injury or trauma. Denies any fever, head injury, changes in vision/speech/mentation/hearing, URI, sore throat , chest pain, palpitations, syncope, cough, shortness of breath, wheeze, dyspnea , abdominal pain, nausea/vomiting/diarrhea, urinary retention, dysuria, hematuria, loss of control of bowel or bladder, numbness/tingling, saddle anesthesia, muscle paralysis/weakness, or rash. - ROS Notes: REVIEW OF SYSTEMS: CONSTITUTIONAL : Denies fever, chills, or sweats. Denies recent illness. EENT: Denies eye, ear, throat, or mouth pain or symptoms. Denies nasal or sinus congestion or discharge. Denies throat, tongue, or mouth swelling or difficulty swallowing. CARDIOVASCULAR: Denies chest pain. Denies palpitations or racing or irregular heart beat. Denies ankle edema. RESPIRATORY: Denies cough, cold, or chest congestion. Denies shortness of breath, difficulty breathing, or wheezing. GASTROINTESTINAL: Denies abdominal pain or distention. Denies nausea, vomiting , or diarrhea. Denies blood in vomitus, stools, or per rectum. Denies black, tarry stools. Denies constipation. GENITOURINARY: Denies difficulty urinating, painful urination, burning, frequency, blood in urine, or discharge. MUSCULOSKELETAL: see hpi SKIN: Denies rash, lesions or sores. NEUROLOGICAL: see hpi. Denies confusion or altered mental status. Denies passing out or loss of consciousness. Denies dizziness or lightheadedness. Denies weakness or paralysis or loss of use of either side. Denies problems with gait or speech. Denies sensory loss, numbness, or tingling. ALL OTHER SYSTEMS REVIEWED AND NEGATIVE. Dictation was performed using [employer] voice recognition software - CARDIOVASCULAR Cardiovascular: DENIES: Chest pain - REPRODUCTIVE Reproductive: DENIES: : - DERM Skin Color: Normal Past Medical History - Social History Smoking Status: Current Every Day Smoker Chew tobacco use (# tins/day): No Frequency of alcohol use: Heavy Drug Abuse: None Family History: Hypertension Patient has suicidal ideation: No Patient has homicidal ideation: No - Past Medical History Cardiac Medical History: Reports: Hx Congestive Heart Failure, Hx DVT - LLE, Hx Heart Attack, Hx Hypertension, Hx Pulmonary Embolism Denies: Hx Hypercholesterolemia Pulmonary Medical History: Denies: Hx Asthma, Hx COPD, Hx Sleep Apnea Neurological Medical History: Reports: Hx Cerebrovascular Accident. Denies: Hx Seizures Endocrine Medical History: Reports: Hx Diabetes Mellitus Type 2 - Borderline diabetes mellitus, without necessary medications, per patient.. Denies: Hx Diabetes Mellitus Type 1, Hx Hyperthyroidism, Hx Hypothyroidism Renal/ Medical History: Denies: Hx Peritoneal Dialysis GI Medical History: Denies: Hx Cirrhosis, Hx Gastroesophageal Reflux Disease, Hx Hepatitis Musculoskeltal Medical History: Reports Hx Arthritis Psychiatric Medical History: Denies: Hx Depression Infectious Medical History: Denies: Hx C-Diff, Hx Hepatitis, Hx MRSA Past Surgical History: Reports: Hx Abdominal Surgery, Hx Cardiac Catheterization - with stent placement, Hx Cardiac Surgery - Cardiac Stent, Hx Open Heart Surgery, Hx Orthopedic Surgery, Hx Vascular Surgery - AAA repair - Immunizations Hx Diphtheria, Pertussis, Tetanus Vaccination: No - Unknown Vertical Provider Document - CONSTITUTIONAL Agree With Documented VS: Yes Notes: PHYSICAL EXAMINATION: GENERAL: Well-appearing, well-nourished and in no acute distress. A&Ox4 HEAD: Atraumatic, normocephalic. Non-tender. No hernandez sign EYES: Pupils equal round and reactive to light, extraocular movements intact, sclera anicteric, conjunctiva are normal. No papilledema (exam limited w/o dilatation). No raccoon eyes/entrapment ENT: EAC clear b/l. TM's intact b/l without erythema, fluid, or perforation. Nares patent and without discharge. oropharynx clear without exudates. No tonsilar hypertrophy or erythema. Moist mucous membranes. No sinus tenderness. No hemotympanum/CSF discharge. NECK: Normal range of motion, supple without lymphadenopathy. No rigidity. No midline tenderness. + tenderness to the facets and paraspinal mm with mild spasm /tightness. Spurling negative. Kernig/brudzinski negative. Chest: No flail chest. equal rise/fall. Non-tender LUNGS: Breath sounds clear to auscultation bilaterally and equal. No wheezes rales or rhonchi. HEART: Regular rate and rhythm without murmurs, rubs, gallops.. Musculoskeletal: UE b/l: FROM to passive/active. Strength 5+/5. No deficits noted. No bony tenderness of extremities. N/V intact distal. Back: FROM to passive/active. Strength 5+/5. No vertebral point tenderness, stepoffs, or deformities. No other bony tenderness or ecchymosis. Extremities: No cyanosis, clubbing, or edema b/l. Peripheral pulses 2+. Capillary refill less than 2 seconds. NEUROLOGICAL: MMSE intact. Cranial nerves grossly intact. Normal speech, normal gait. Normal sensory, motor exams. Reflexes 2+ b/l. BRANDON's negative. Pronator drift negative. Heel/spears, finger/nose wnl. Walking on heels/toes and heel to toe wnl. PSYCH: Normal mood, normal affect. SKIN: Warm, Dry, normal turgor, no rashes or lesions noted. - INFECTION CONTROL TRAVEL OUTSIDE OF THE [place] IN LAST 30 DAYS: No - RESPIRATORY O2 Sat by Pulse Oximetry: 95 Course - Re-evaluation Re-evalutation: 06/02/17 00:20 Patient is an afebrile, well-hydrated, 82-year-old male who presents the ED with cervicalgia. Vitals are stable. PE otherwise unremarkable for any focal neurological deficits. MMSE intact. X-ray of cervical spine showed chronic changes consistent with a CT scan from 2016 as per discussion with the radiologist. Patient has had these symptoms for several months with a CT scan of the head last week that was negative. Patient has had reported visits with his PCM about this chronic pain as well. I will send him home with a prescription for Celebrex that he can take as directed/needed. Conservative measures for symptoms. Check with your PCM in 3-5 days. Consider consult with orthopedics and physical therapy. Return to the ED with any worsening/ concerning symptoms otherwise as reviewed discharge. Patient is in agreement. - Vital Signs Vital signs: Temp Pulse Resp BP Pulse Ox 97.6 F 62 16 94/55 L 95 06/01/17 19:36 06/01/17 19:36 06/01/17 19:36 06/01/17 19:36 06/01/17 19:36 Discharge - Discharge Clinical Impression: Cervicalgia Condition: Stable Disposition: HOME, SELF-CARE Instructions: Ice Packs ([facility]), Ice Massage ([facility]), Warm Packs ([facility]), Headache ( [facility]), Follow-Up Care ([facility]) Additional Instructions: Rest, Ice Tylenol/ibuprofen as needed Light stretches daily Strength exercises as able Moist heat and massage may help F/u with your PCP in 2-3 days for a recheck Consider consult(s) with Orthopedics/physical therapy for ongoing/worsening symptoms Return to the ED with any worsening symptoms and/or development of fever, headache, chest pain, palpitations, syncope, shortness of breath, trouble breathing, abdominal pain, n/v/d, muscle weakness/paralysis, numbness/tingling, swelling, redness, or other worsening symptoms that are concerning to you. Prescriptions: Celecoxib [Celebrex 100 mg Capsule] 100 mg PO BID PRN #30 capsule PRN Reason: Referrals: [facility] [Provider Group] - Follow up in 1 week [facility] [Provider Group] - Follow up in 3-5 days
--- NOTE | 2017-06-01 23:39 | RADIOLOGY REPORT (SQ) ---
EXAM DESCRIPTION: CERV SP 4 OR 5 VIEWS COMPLETED DATE/TIME: 06/01/2017 11:19 pm REASON FOR STUDY: neck pain COMPARISON: None. NUMBER OF VIEWS: Five views. TECHNIQUE: AP, lateral, obliques and odontoid radiographic images acquired of the cervical spine. LIMITATIONS: None. FINDINGS: MINERALIZATION: Normal. ALIGNMENT: There is some mild loss of the normal cervical lordosis. VERTEBRAE: There is some mild compression of the C5, C 6, and C7 vertebra which are age indeterminate . The odontoid is not well visualized in the AP projection. DISCS: No significant osteophytes or sclerosis. Disc height maintained. FORAMINA: No osteophytes or foraminal narrowing. LATERAL AND POSTERIOR ELEMENTS: Facets, lateral masses and spinous processes without significant find ings. Degenerative changes are identified in the facet articulations at multiple levels. HARDWARE: None in the spine. SOFT TISSUES: No masses or calcifications. Lung apices clear. OTHER: No other significant finding. IMPRESSION: There is some mild compression of the C 5, C 6, and C7 vertebra which are age indetermin ate. Degenerative changes as noted above. Other findings as noted above TECHNICAL DOCUMENTATION: JOB ID: [id number]- All Rights Reserved
[2017-06-02 00:32] VITALS: BP 128/53
== END 2017-06-02 00:35 | disposition home or self-care (01) ==
LOC: ER 19:27
DX: M54.2 Cervicalgia (principal); G89.29 Other chronic pain; R51 Headache; F17.200 Nicotine dependence, unspecified, uncomplicated
CPT/HCPCS: 72050; 99283

== ENCOUNTER 2017-10-24 18:37 | Emergency (ER) | payer OTHER, MEDICARE, MEDICAID ==
[2017-10-24] MEDS ORDERED: NORMAL SALINE 1000 ML 1,000 ML IV ONE (19:16)
[2017-10-24] MEDS ORDERED: KETOROLAC TROMETHAMINE INJ/PF 30 MG/1 ML SDV IV ONE (19:16)
[2017-10-24] MEDS ORDERED: PROCHLORPERAZINE EDISYLATE INJ 10 MG/2 ML VIAL IV ONE (19:16)
[2017-10-24] MEDS ORDERED: DIPHENHYDRAMINE HCL 50 MG/ML VIAL IV ONE (19:16)
--- NOTE | 2017-10-24 19:20 | ER Document Report ---
ED Headache - General Chief Complaint: Neck Problem Stated Complaint: HEADACHE Time Seen by Provider: 10/24/17 19:13 Notes: The patient is an 82-year-old male, past medical history chronic headache and neck pain, chronic alcoholism, presents with several months of his usual headache and neck pain. He said he takes pain medicine prescribed to him by the [facility], but it does not work. He has had extensive workup by his primary at the [facility], including MRIs and CAT scans. He was seen here multiple times in the ER for similar symptoms. He denies sudden onset of headache, neuro symptoms, nausea, vomiting, fevers, neck stiffness, back pain, blurry vision, rash or head injury. TRAVEL OUTSIDE OF THE [place] IN LAST 30 DAYS: No - Related Data Allergies/Adverse Reactions: No Known Allergies Allergy (Verified 10/23/16 18:43) Past Medical History - General Information source: Patient - Social History Smoking Status: Current Every Day Smoker Frequency of alcohol use: Heavy Drug Abuse: None Family History: Hypertension Patient has suicidal ideation: No Patient has homicidal ideation: No - Past Medical History Cardiac Medical History: Reports: Hx Congestive Heart Failure, Hx DVT - LLE, Hx Heart Attack, Hx Hypertension, Hx Pulmonary Embolism Denies: Hx Hypercholesterolemia Pulmonary Medical History: Denies: Hx Asthma, Hx COPD, Hx Sleep Apnea Neurological Medical History: Reports: Hx Cerebrovascular Accident. Denies: Hx Seizures Endocrine Medical History: Reports: Hx Diabetes Mellitus Type 2 - Borderline diabetes mellitus, without necessary medications, per patient.. Denies: Hx Diabetes Mellitus Type 1, Hx Hyperthyroidism, Hx Hypothyroidism Renal/ Medical History: Denies: Hx Peritoneal Dialysis GI Medical History: Denies: Hx Cirrhosis, Hx Gastroesophageal Reflux Disease, Hx Hepatitis Musculoskeltal Medical History: Reports Hx Arthritis Psychiatric Medical History: Denies: Hx Depression Infectious Medical History: Denies: Hx C-Diff, Hx Hepatitis, Hx MRSA Past Surgical History: Reports: Hx Abdominal Surgery, Hx Cardiac Catheterization - with stent placement, Hx Cardiac Surgery - Cardiac Stent, Hx Open Heart Surgery, Hx Orthopedic Surgery, Hx Vascular Surgery - AAA repair - Immunizations Hx Diphtheria, Pertussis, Tetanus Vaccination: No - Unknown Review of Systems - Review of Systems Notes: REVIEW OF SYSTEMS: CONSTITUTIONAL: -fevers, -chills EENT: -eye pain, -difficulty swallowing, -nasal congestion CARDIOVASCULAR: -chest pain, -syncope. RESPIRATORY: -cough, -SOB GASTROINTESTINAL: -abdominal pain, -nausea, -vomiting, -diarrhea GENITOURINARY: -dysuria, -hematuria MUSCULOSKELETAL: -back pain, +neck pain SKIN: -rash or skin lesions. HEMATOLOGIC: -easy bruising or bleeding. LYMPHATIC: -swollen, enlarged glands. NEUROLOGICAL: -altered mental status or loss of consciousness, +headache, - neurologic symptoms PSYCHIATRIC: -anxiety, -depression. ALL OTHER SYSTEMS REVIEWED AND NEGATIVE. Physical Exam - Vital signs Vitals: Temp Pulse Resp BP Pulse Ox 98.7 F 56 L 16 92/42 L 96 10/24/17 18:43 10/24/17 18:43 10/24/17 18:43 10/24/17 18:43 10/24/17 18:43 - Notes Notes: PHYSICAL EXAMINATION: GENERAL: Well-appearing, well-nourished and in no acute distress. HEAD: Atraumatic, normocephalic. EYES: Pupils equal round and reactive to light, extraocular movements intact, sclera anicteric, conjunctiva are normal. ENT: nares patent, oropharynx clear without exudates. Moist mucous membranes. NECK: Normal range of motion, supple without lymphadenopathy LUNGS: Breath sounds clear to auscultation bilaterally and equal. No wheezes rales or rhonchi. HEART: Regular rate and rhythm without murmurs ABDOMEN: Soft, nontender, normoactive bowel sounds. No guarding, no rebound. No masses appreciated. EXTREMITIES: Normal range of motion, no pitting or edema. No cyanosis. NEUROLOGICAL: Cranial nerves grossly intact. Normal speech, normal gait. Normal sensory and motor exams. PSYCH: Normal mood, normal affect. SKIN: Warm, Dry, normal turgor, no rashes or lesions noted. Course - Re-evaluation Re-evalutation: Patient's headache appears to be chronic in nature. He has had extensive workup by his primary, including MRIs and CT scans, without any dangerous cause for the headache or neck pain. He said a headache cocktail has helped him in the past. 10/24/17 21:22 Pt says his headache has improved. Will discharge patient [facility] with [facility] and [facility]. - Vital Signs Vital signs: Temp Pulse Resp BP Pulse Ox 98.7 F 56 L 16 92/42 L 96 10/24/17 18:43 10/24/17 18:43 10/24/17 18:43 10/24/17 18:43 10/24/17 18:43 Discharge - Discharge Clinical Impression: Head ache Qualifiers: Headache type: unspecified Headache chronicity pattern: chronic headache Intractability: not intractable Qualified Code(s): R51 - Headache Condition: Stable Disposition: HOME, SELF-CARE Additional Instructions: HEADACHE: The physician does not feel that the headache you are experiencing has a serious underlying cause. Most headaches are due to emotional stress, with resultant muscle tension (tension headache). Occasionally, headaches are secondary to changes in the blood vessels of the scalp (vascular headache and migraine headache). Sometimes, a headache is the first symptom of another developing illness, such as a viral infection. You have no evidence of stroke, bleeding, meningitis, or other serious cause of your headache. The treatment of headaches varies with the severity and cause of the pain. Not all headaches need pain shots. In fact, there is evidence that using narcotics for headaches may make them worse in the long run. The physician will determine the therapy that's in your best interest. If you develop a fever, if the headache is different from any you've previously experienced, or if the headache progressively worsens, then call your physician at once or go to the emergency room. USE OF DIPHENHYDRAMINE: Diphenhydramine (Benadryl) is an antihistamine and has been recommended to help treat your headache and to prevent side effects of other medications used to treat headaches. The medication can be repeated four times daily. Age Elixir (12.5 mg/tsp) 25 mg pill adult 1-2 tabs Antihistamines may cause drowsiness, especially with the first dose. Do not operate machinery or drive while under the effects of the medication. Do not combine the medication with alcohol, or with any other medication without talking to your doctor. INTRAVENOUS COMPAZINE FOR HEADACHE: You have received therapy for headaches, using intravenous Compazine. This treatment is dramatically successful in relieving the headache in about 50 percent of cases. When it works, it provides a rapid method of eliminating the headache without resorting to narcotics (and the problems associated with them). Most patients still feel fully alert after the Compazine, but others may be slightly drowsy. It's best not to drive or work with machinery for six to eight hours. Do not take alcohol or other medication unless you discuss it with the doctor. If you develop tightness and spasms in your muscles, especially the neck and tongue, you should return. This is a side effect which can be treated. TORADOL INJECTION: You have been given an injection of ketorolac tromethamine (Toradol). This is an excellent, safe drug for pain control. It also has potent antiinflammatory action. You should have significant pain relief within about one hour. Toradol is not addicting and is non-sedating. It does not interfere with driving or work. Call or return if you develop itching, hives, shortness of breath, or rash. FOLLOW-UP CARE: If you have been referred to a physician for follow-up care, call the physician s office for an appointment as you were instructed or within the next two days. If you experience worsening or a significant change in your symptoms, notify the physician immediately or return to the Emergency Department at any time for re-evaluation. Referrals: FAN HORN MD [EMER[facility]] - Follow up as needed
[2017-10-24 21:27] VITALS: BP 108/48
== END 2017-10-24 21:38 | disposition home or self-care (01) ==
LOC: ER 18:37
DX: R51 Headache (principal); M54.2 Cervicalgia; F17.200 Nicotine dependence, unspecified, uncomplicated; I50.9 Heart failure, unspecified; I11.0 Hypertensive heart disease with heart failure; Z86.718 Personal history of other venous thrombosis and embolism; I25.2 Old myocardial infarction; Z86.711 Personal history of pulmonary embolism
CPT/HCPCS: 99284; 96374; 96375; J1200; J1885; J0780; J7030

== ENCOUNTER 2017-11-10 17:11 | Emergency (ER) | payer OTHER, MEDICARE, MEDICAID ==
--- NOTE | 2017-11-10 18:18 | RADIOLOGY REPORT (SQ) ---
EXAM DESCRIPTION: CT HEAD WITHOUT COMPLETED DATE/TIME: 11/10/2017 6:03 pm REASON FOR STUDY: headache COMPARISON: 05/18/2017 TECHNIQUE: Axial images acquired through the brain without intravenous contrast. Images reviewed wi th bone, brain and subdural windows. Images stored on PACS. All CT scanners at this facility use dose modulation, iterative reconstruction, and/or weight based d osing when appropriate to reduce radiation dose to as low as reasonably achievable (ALARA). [facility]: Dose Right [facility]: CareDose [facility]: Dose Right [facility]: Teradose 4D [facility]: Smart [employer] RADIATION DOSE: CT Rad equipment meets quality standard of care and radiation dose reduction techniq ues were employed. CTDIvol: 67.0 mGy. DLP: 1316 mGy-cm. mGy. LIMITATIONS: None. FINDINGS: VENTRICLES: Prominent ventricles secondary to involutional atrophy. CEREBRUM: Cortical atrophy. No masses. No hemorrhage. No midline shift. No evidence for acute inf arction. Normal zavala/white matter differentiation. No areas of low density in the white matter. CEREBELLUM: No masses. No hemorrhage. No alteration of density. No evidence for acute infarction. EXTRAAXIAL SPACES: No fluid collections. No masses. ORBITS AND GLOBE: No intra- or extraconal masses. Normal contour of globe without masses. CALVARIUM: No fracture. PARANASAL SINUSES: No fluid or mucosal thickening. SOFT TISSUES: No mass or hematoma. OTHER: No other significant finding. IMPRESSION: Involutional changes of aging with no acute intracranial finding. EVIDENCE OF ACUTE STROKE: NO. COMMENT: Quality ID # [id number]: Final reports with documentation of one or more dose reduction techniques (e.g., Automated exposure control, adjustment of the mA and/or kV according to patient size, use of iterative reconstruction technique) TECHNICAL DOCUMENTATION: JOB ID: [id number] [employer]- All Rights Reserved Reading location - IP/workstation name: [email or web address]
--- NOTE | 2017-11-10 19:13 | ER Document Report ---
ED General - General Chief Complaint: Headache Stated Complaint: HEADACHE Time Seen by Provider: 11/10/17 18:16 Mode of Arrival: Medic Information source: Patient TRAVEL OUTSIDE OF THE [place] IN LAST 30 DAYS: No - HPI Patient complains to provider of: headache "which I've had for awhile" Onset: Other - 3 months ago. No new trauma. Quality of pain: Dull - global Severity: Mild Associated symptoms: None Exacerbated by: Denies Relieved by: Denies Similar symptoms previously: Yes Notes: 82-year-old male who presents emergency department complaining of a headache for the last 3-4 months. He states nothing is changed. He does take pain medication at home which he cannot recall the name of he states he took it today but it did not help. Patient has no new trauma to the area. He is sitting up on his bed eating potato chips without difficulty. He is already finished most of his meal tray. Patient has a history of Parkinson's. He does live at home with his son. He is ambulatory he still drives. He states he drinks daily 4-5 shots of whiskey. He states he does not like beer so he does not ingest that. His last 2 shots were right before he called 911 to present here to the emergency department. - Related Data Allergies/Adverse Reactions: No Known Allergies Allergy (Verified 11/10/17 17:32) Past Medical History - General Information source: Patient - Social History Smoking Status: Never Smoker Cigarette use (# per day): No Chew tobacco use (# tins/day): No Smoking Education Provided: No Frequency of alcohol use: Heavy Drug Abuse: None Lives with: Family Family History: Hypertension Patient has suicidal ideation: No Patient has homicidal ideation: No - Past Medical History Cardiac Medical History: Reports: Hx Congestive Heart Failure, Hx DVT - LLE, Hx Heart Attack, Hx Hypertension, Hx Pulmonary Embolism Denies: Hx Hypercholesterolemia Pulmonary Medical History: Denies: Hx Asthma, Hx COPD, Hx Sleep Apnea Neurological Medical History: Reports: Hx Cerebrovascular Accident, Other - parkinson's. Denies: Hx Seizures Endocrine Medical History: Reports: Hx Diabetes Mellitus Type 2 - Borderline diabetes mellitus, without necessary medications, per patient.. Denies: Hx Diabetes Mellitus Type 1, Hx Hyperthyroidism, Hx Hypothyroidism Renal/ Medical History: Reports: None. Denies: Hx Peritoneal Dialysis Malignancy Medical History: Reports None GI Medical History: Reports: None. Denies: Hx Cirrhosis, Hx Gastroesophageal Reflux Disease, Hx Hepatitis Musculoskeltal Medical History: Reports Hx Arthritis Psychiatric Medical History: Reports: None Denies: Hx Depression Infectious Medical History: Denies: Hx C-Diff, Hx Hepatitis, Hx MRSA Past Surgical History: Reports: Hx Abdominal Surgery - AAA, Hx Cardiac Catheterization - with stent placement, Hx Cardiac Surgery - Cardiac Stent, Hx Open Heart Surgery, Hx Orthopedic Surgery, Hx Vascular Surgery - AAA repair - Immunizations Hx Diphtheria, Pertussis, Tetanus Vaccination: No - Unknown Review of Systems - Review of Systems Constitutional: See HPI EENT: No symptoms reported Cardiovascular: No symptoms reported Respiratory: No symptoms reported Gastrointestinal: No symptoms reported Genitourinary: No symptoms reported Male Genitourinary: No symptoms reported Musculoskeletal: No symptoms reported Skin: No symptoms reported Hematologic/Lymphatic: No symptoms reported Neurological/Psychological: Tremor - h/o parkinson's Physical Exam - Vital signs Vitals: Temp Pulse Resp BP Pulse Ox 98.3 F 61 18 104/53 L 96 11/10/17 17:17 11/10/17 17:17 11/10/17 17:17 11/10/17 17:17 11/10/17 17:17 - Notes Notes: PHYSICAL EXAMINATION: GENERAL: Well-appearing, well-nourished and in no acute distress. The patient has a consisten tremor of his bilateral upper extremities. HEAD: Atraumatic, normocephalic. EYES: Pupils equal round and reactive to light, extraocular movements intact, sclera anicteric, conjunctiva are normal. ENT: Nares patent, oropharynx clear without exudates. Moist mucous membranes. NECK: Normal range of motion, supple without lymphadenopathy LUNGS: Breath sounds clear to auscultation bilaterally and equal. No wheezes rales or rhonchi. HEART: Regular rate and rhythm without murmurs ABDOMEN: Soft, nontender, nondistended abdomen. No guarding, no rebound. No masses appreciated. Musculoskeletal: Normal range of motion, no pitting or edema. No cyanosis. NEUROLOGICAL: Cranial nerves grossly intact. Normal speech, normal gait. Normal sensory, motor exams PSYCH: Normal mood, normal affect. SKIN: Warm, Dry, normal turgor, no rashes or lesions noted. Course - Re-evaluation Re-evalutation: 11/10/17 19:[address] 11/10/17 00:00 IMPRESSION: Involutional changes of aging with no acute intracranial finding. EVIDENCE OF ACUTE STROKE: NO. 11/10/17 20:34 Patient's states he feels better his headache has decreased. He is sitting on the edge of bed with his had an echo on ready to go - Vital Signs Vital signs: Temp Pulse Resp BP Pulse Ox 98.3 F 61 18 104/53 L 96 11/10/17 17:17 11/10/17 17:17 11/10/17 17:17 11/10/17 17:17 11/10/17 17:17 - Laboratory Result Diagrams: 11/10/17 19:25 11/10/17 19:25 Laboratory results interpreted by me: 11/10/17 11/10/17 19:25 19:25 RBC 4.32 L MCV 104 H MCH 35.0 H Calcium 10.4 H Discharge - Discharge Clinical Impression: Headache, chronic daily Disposition: HOME, SELF-CARE Instructions: Headache ([facility]) Additional Instructions: Follow up with your physician tomorrow for further care or return to the ED IMMEDIATELY if symptoms worsen or new concerns occur. If you cannot afford to follow up with your primary care physician a list of low cost clinics have been provided at the end of your discharge papers as well. To the emergency department immediately if you have fevers worse headache or any other symptoms.
[2017-11-10] MEDS ORDERED: DIAZEPAM 2 MG TABLET PO ONE (19:14)
[2017-11-10 19:51] LABS: ABSOLUTE BASOPHILS # (AUTO) 0.1 10^3/uL (0.0-0.2); ABSOLUTE EOSINOPHILS # (AUTO) 0.2 10^3/uL (0.0-0.6); ABSOLUTE LYMPHOCYTES (AUTO) 3.4 10^3/uL (0.5-4.7); ABSOLUTE MONOCYTES (AUTO) 0.6 10^3/uL (0.1-1.4); ABSOLUTE NEUT (AUTO) 4.4 10^3/uL (1.7-8.2); BASOPHILS % (AUTO) 1.2 % (0-2); EOSINOPHILS % (AUTO) 2.7 % (0-6); HEMATOCRIT 44.8 % (37.9-51.0); HEMOGLOBIN 15.1 g/dL (13.5-17.0); LYMPHOCYTES % (AUTO) 39.5 % (13-45); MEAN CORPUSCULAR HGB CONC 33.8 g/dL (32.0-36.0); MEAN CORPUSCULAR VOLUME 104 fl (80-97); MONOCYTES % (AUTO) 6.4 % (3-13); PLATELET COUNT 185 10^3/uL (150-450); RED BLOOD COUNT 4.32 10^6/uL (4.35-5.55); RED CELL DISTRIBUTION WIDTH 13.7 % (11.5-14.0); SEGMENTED NEUTROPHILS % (AUTO) 50.2 % (42-78); TOTAL CELLS COUNTED % (AUTO) 100 %; WHITE BLOOD COUNT 8.7 10^3/uL (4.0-10.5)
[2017-11-10 20:10] LABS: ALANINE AMINOTRANSFERASE 23 U/L (21-72); ALBUMIN 4.5 g/dL (3.5-5.0); ALKALINE PHOSPHATASE 80 U/L (38-126); ANION GAP 14 (5-19); ASPARTATE AMINO TRANSFERASE 20 U/L (17-59); BILIRUBIN,DIRECT 0.4 mg/dL (0.0-0.4); BILIRUBIN,TOTAL 0.4 mg/dL (0.2-1.3); BLOOD UREA NITROGEN 16 mg/dL (7-20); CALCIUM 10.4 mg/dL (8.4-10.2); CARBON DIOXIDE 24 mmol/L (22-30); CHLORIDE 104 mmol/L (98-107); GLUCOSE 94 mg/dL (75-110); SODIUM 141.6 mmol/L (137-145); TOTAL PROTEIN 7.6 g/dL (6.3-8.2)
[2017-11-10 21:51] VITALS: BP 120/54
== END 2017-11-10 22:18 | disposition home or self-care (01) ==
LOC: ER 17:11
DX: R51 Headache (principal); G20 Parkinson's disease
CPT/HCPCS: 99284; 36415; 85025; 80053; 70450; J3490

== ENCOUNTER 2018-03-28 17:23 | Emergency (ER) | payer OTHER, MEDICARE, MEDICAID ==
--- NOTE | 2018-03-28 17:42 | ER Document Report ---
ED General - General Chief Complaint: Cough Stated Complaint: POISONING Time Seen by Provider: 03/28/18 17:41 Notes: The patient is an 82-year-old male, past medical history chronic headache and neck pain, chronic alcoholism, presents with generalized malaise and feeling like he is being poisoned. He lives by himself with his dog. When asked what he thinks he is being poisoned with, he says that he feels like he is high all the time now. He is also having a dry cough. He denies chest pain, shortness of breath, focal weakness, numbness, tingling, seizures, blurry vision, neck stiffness or abdominal pain. TRAVEL OUTSIDE OF THE [place] IN LAST 30 DAYS: No - Related Data Allergies/Adverse Reactions: No Known Allergies Allergy (Verified 11/10/17 17:32) Past Medical History - General Information source: Patient - Social History Smoking Status: Current Every Day Smoker Frequency of alcohol use: Heavy Drug Abuse: None Family History: Hypertension - Past Medical History Cardiac Medical History: Reports: Hx Congestive Heart Failure, Hx DVT - LLE, Hx Heart Attack, Hx Hypertension, Hx Pulmonary Embolism Denies: Hx Hypercholesterolemia Pulmonary Medical History: Denies: Hx Asthma, Hx COPD, Hx Sleep Apnea Neurological Medical History: Reports: Hx Cerebrovascular Accident. Denies: Hx Seizures Endocrine Medical History: Reports: Hx Diabetes Mellitus Type 2 - Borderline diabetes mellitus, without necessary medications, per patient.. Denies: Hx Diabetes Mellitus Type 1, Hx Hyperthyroidism, Hx Hypothyroidism Renal/ Medical History: Denies: Hx Peritoneal Dialysis GI Medical History: Denies: Hx Cirrhosis, Hx Gastroesophageal Reflux Disease, Hx Hepatitis Musculoskeletal Medical History: Reports Hx Arthritis Psychiatric Medical History: Denies: Hx Depression Infectious Medical History: Denies: Hx C-Diff, Hx Hepatitis, Hx MRSA Past Surgical History: Reports: Hx Abdominal Surgery - AAA, Hx Cardiac Catheterization - with stent placement, Hx Cardiac Surgery - Cardiac Stent, Hx Open Heart Surgery, Hx Orthopedic Surgery, Hx Vascular Surgery - AAA repair - Immunizations Hx Diphtheria, Pertussis, Tetanus Vaccination: No - Unknown Review of Systems - Review of Systems Notes: REVIEW OF SYSTEMS: CONSTITUTIONAL: -fevers, -chills EENT: -eye pain, -difficulty swallowing, -nasal congestion CARDIOVASCULAR: -chest pain, -syncope. RESPIRATORY: +cough, -SOB GASTROINTESTINAL: -abdominal pain, -nausea, -vomiting, -diarrhea GENITOURINARY: -dysuria, -hematuria MUSCULOSKELETAL: -back pain, -neck pain SKIN: -rash or skin lesions. HEMATOLOGIC: -easy bruising or bleeding. LYMPHATIC: -swollen, enlarged glands. NEUROLOGICAL: -altered mental status or loss of consciousness, -headache, - neurologic symptoms PSYCHIATRIC: -anxiety, -depression. ALL OTHER SYSTEMS REVIEWED AND NEGATIVE. Physical Exam - Vital signs Vitals: Temp Pulse BP Pulse Ox 97.8 F 76 121/63 98 03/28/18 17:52 03/28/18 17:52 03/28/18 17:52 03/28/18 17:52 - Notes Notes: PHYSICAL EXAMINATION: GENERAL: Well-appearing, well-nourished and in no acute distress. HEAD: Atraumatic, normocephalic. EYES: Pupils equal round and reactive to light, extraocular movements intact, sclera anicteric, conjunctiva are normal. ENT: nares patent, oropharynx clear without exudates. Moist mucous membranes. NECK: Normal range of motion, supple without lymphadenopathy LUNGS: Breath sounds clear to auscultation bilaterally and equal. No wheezes rales or rhonchi. HEART: Regular rate and rhythm without murmurs ABDOMEN: Soft, nontender, normoactive bowel sounds. No guarding, no rebound. No masses appreciated. EXTREMITIES: Normal range of motion, no pitting or edema. No cyanosis. NEUROLOGICAL: Cranial nerves grossly intact. Normal speech, normal gait. Normal sensory and motor exams. PSYCH: Normal mood, normal affect. SKIN: Warm, Dry, normal turgor, no rashes or lesions noted. Course - Re-evaluation Re-evalutation: Patient appears well and labs are unremarkable. There are no signs or symptoms of a dangerous toxidrome on exam today. He does not appear to be in alcohol withdrawal at this time. Instructed him to follow with his primary care physician for further evaluation and treatment. - Vital Signs Vital signs: Temp Pulse Resp BP Pulse Ox 97.8 F 76 121/63 98 03/28/18 17:52 03/28/18 17:52 03/28/18 17:52 03/28/18 17:52 - Laboratory Result Diagrams: 03/28/18 18:09 03/28/18 18:09 Laboratory results interpreted by me: 03/28/18 03/28/18 18:09 18:09 RBC 4.29 L MCV 103 H MCH 35.9 H RDW 14.4 H ALT 13 L - Diagnostic Test Radiology reviewed: Image reviewed, Reports reviewed Radiology results interpreted by me: CT Head: NAD CXR: NAD Discharge - Discharge Clinical Impression: Cough, Worried well Condition: Stable Disposition: HOME, SELF-CARE Additional Instructions: There are no signs of a dangerous poisoning on your labs or exam today. Follow- up with your primary care physician for further evaluation and treatment. Referrals: PATY COHEN MD [COMMUNITY BASED STAFF] - Follow up as needed
[2018-03-28 18:23] LABS: ABSOLUTE BASOPHILS # (AUTO) 0.1 10^3/uL (0.0-0.2); ABSOLUTE EOSINOPHILS # (AUTO) 0.1 10^3/uL (0.0-0.6); ABSOLUTE LYMPHOCYTES (AUTO) 3.1 10^3/uL (0.5-4.7); ABSOLUTE MONOCYTES (AUTO) 0.5 10^3/uL (0.1-1.4); ABSOLUTE NEUT (AUTO) 3.3 10^3/uL (1.7-8.2); BASOPHILS % (AUTO) 1.1 % (0-2); EOSINOPHILS % (AUTO) 2.1 % (0-6); HEMATOCRIT 44.2 % (37.9-51.0); HEMOGLOBIN 15.4 g/dL (13.5-17.0); LYMPHOCYTES % (AUTO) 43.4 % (13-45); MEAN CORPUSCULAR HEMOGLOBIN 35.9 pg (27.0-33.4); MEAN CORPUSCULAR HGB CONC 34.8 g/dL (32.0-36.0); MEAN CORPUSCULAR VOLUME 103 fl (80-97); MONOCYTES % (AUTO) 6.9 % (3-13); PLATELET COUNT 183 10^3/uL (150-450); RED BLOOD COUNT 4.29 10^6/uL (4.35-5.55); RED CELL DISTRIBUTION WIDTH 14.4 % (11.5-14.0); SEGMENTED NEUTROPHILS % (AUTO) 46.5 % (42-78); TOTAL CELLS COUNTED % (AUTO) 100 %; WHITE BLOOD COUNT 7.1 10^3/uL (4.0-10.5)
--- NOTE | 2018-03-28 18:24 | RADIOLOGY REPORT (SQ) ---
EXAM DESCRIPTION: CT HEAD WITHOUT COMPLETED DATE/TIME: 03/28/2018 6:04 pm REASON FOR STUDY: difficulty walking COMPARISON: 11/10/2017 TECHNIQUE: Axial images acquired through the brain without intravenous contrast. Images reviewed wi th bone, brain and subdural windows. Additional sagittal and coronal reconstructions were generated. Images stored on PACS. All CT scanners at this facility use dose modulation, iterative reconstruction, and/or weight based d osing when appropriate to reduce radiation dose to as low as reasonably achievable (ALARA). [facility]: Dose Right [facility]: CareDose [facility]: Dose Right [facility]: Teradose 4D [facility]: [employer] RADIATION DOSE: CT Rad equipment meets quality standard of care and radiation dose reduction techniq ues were employed. CTDIvol: 53.2 mGy. DLP: 1017 mGy-cm. mGy. LIMITATIONS: None. FINDINGS: VENTRICLES: Prominent. CEREBRUM: No masses. No hemorrhage. No midline shift. Areas of low density in the white matter mos t likely due to chronic micro-vascular ischemic change. No evidence for acute infarction. CEREBELLUM: No masses. No hemorrhage. No alteration of density. No evidence for acute infarction. EXTRAAXIAL SPACES: Mild age-related involutional change. No fluid collections. No masses. ORBITS AND GLOBE: No intra- or extraconal masses. Normal contour of globe without masses. CALVARIUM: No fracture. PARANASAL SINUSES: No fluid or mucosal thickening. SOFT TISSUES: No mass or hematoma. OTHER: No other significant finding. IMPRESSION: MILD CHRONIC CHANGES OF ATROPHY AND MICROVASCULAR ISCHEMIA. NO ACUTE PROCESS. EVIDENCE OF ACUTE STROKE: NO. TECHNICAL DOCUMENTATION: JOB ID: [id number] Quality ID # [id number]: Final reports with documentation of one or more dose reduction techniques (e.g., Au tomated exposure control, adjustment of the mA and/or kV according to patient size, use of iterative reconstruction technique) 2010 [employer]- All Rights Reserved Reading location - IP/workstation name: [email or web address]
--- NOTE | 2018-03-28 18:25 | RADIOLOGY REPORT (SQ) ---
EXAM DESCRIPTION: CHEST SINGLE VIEW COMPLETED DATE/TIME: 03/28/2018 6:06 pm REASON FOR STUDY: cough COMPARISON: [id number] EXAM PARAMETERS: NUMBER OF VIEWS: One view. TECHNIQUE: Single frontal radiographic view of the chest acquired. RADIATION DOSE: NA LIMITATIONS: None. FINDINGS: LUNGS AND PLEURA: No opacities, masses or pneumothorax. No pleural effusion. MEDIASTINUM AND HILAR STRUCTURES: No masses. Contour normal. HEART AND VASCULAR STRUCTURES: Heart normal in size. Normal vasculature. BONES: No acute findings. HARDWARE: None in the chest. OTHER: No other significant finding. IMPRESSION: NO ACUTE RADIOGRAPHIC FINDING IN THE CHEST. TECHNICAL DOCUMENTATION: JOB ID: [id number] [employer]- All Rights Reserved Reading location - IP/workstation name: [email or web address]
[2018-03-28 18:40] LABS: ALANINE AMINOTRANSFERASE 13 U/L (21-72); ALBUMIN 4.4 g/dL (3.5-5.0); ALCOHOL 23 mg/dL (NONE DETECTED); ALKALINE PHOSPHATASE 80 U/L (38-126); ANION GAP 13 (5-19); ASPARTATE AMINO TRANSFERASE 19 U/L (17-59); BILIRUBIN,DIRECT 0.3 mg/dL (0.0-0.4); BILIRUBIN,TOTAL 0.8 mg/dL (0.2-1.3); BLOOD UREA NITROGEN 18 mg/dL (7-20); CALCIUM 9.4 mg/dL (8.4-10.2); CARBON DIOXIDE 26 mmol/L (22-30); CHLORIDE 103 mmol/L (98-107); GLUCOSE 89 mg/dL (75-110); POTASSIUM 3.6 mmol/L (3.6-5.0); SODIUM 141.9 mmol/L (137-145); TOTAL PROTEIN 7.5 g/dL (6.3-8.2)
[2018-03-28 19:58] VITALS: BP 116/68
== END 2018-03-28 19:57 | disposition home or self-care (01) ==
LOC: ER 17:23
DX: Z71.1 Person with feared health complaint in whom no diagnosis is made (principal); R05 Cough; R53.81 Other malaise; F17.200 Nicotine dependence, unspecified, uncomplicated; I10 Essential (primary) hypertension; E11.9 Type 2 diabetes mellitus without complications
CPT/HCPCS: 36415; 70450; 71045; 80053; 80307; 85025; 99284

== ENCOUNTER 2020-01-17 18:33 | Observation (INO) | payer OTHER, MEDICARE, MEDICAID ==
--- NOTE | 2020-01-17 22:36 | RADIOLOGY REPORT (SQ) ---
EXAM DESCRIPTION: US EXTREMITY VEINS UNILATERAL COMPLETED DATE/TME: 01/17/2020 19:57 CLINICAL HISTORY: right low extremity swelling COMPARISON: None Available TECHNIQUE: Grayscale, color Doppler, and Doppler interrogation images of the common femoral vein, superficial femoral vein, popliteal, and posterior tibial veins of the right lower extremity were submitted FINDINGS: There is lack of flow and compressibility of the right common femoral and superficial femoral vein compatible with acute DVT. There is incomplete compressibility of the right popliteal vein compatible with nonocclusive thrombus at this level. There is occlusion of the greater saphenous vein. IMPRESSION: Acute occlusive DVT extending from the right common femoral vein to the superficial femoral vein. Nonocclusive DVT at the right popliteal vein.
[2020-01-17 22:47] LABS: ABSOLUTE BASOPHILS # (AUTO) 0.1 10^3/uL (0.0-0.2); ABSOLUTE EOSINOPHILS # (AUTO) 0.3 10^3/uL (0.0-0.6); ABSOLUTE LYMPHOCYTES (AUTO) 3.2 10^3/uL (0.5-4.7); ABSOLUTE MONOCYTES (AUTO) 0.6 10^3/uL (0.1-1.4); ABSOLUTE NEUT (AUTO) 4.1 10^3/uL (1.7-8.2); EOSINOPHILS % (AUTO) 4.1 % (0-6); HEMATOCRIT 45.5 % (37.9-51.0); HEMOGLOBIN 15.8 g/dL (13.5-17.0); LYMPHOCYTES % (AUTO) 38.2 % (13-45); MEAN CORPUSCULAR HEMOGLOBIN 35.9 pg (27.0-33.4); MEAN CORPUSCULAR HGB CONC 34.7 g/dL (32.0-36.0); MEAN CORPUSCULAR VOLUME 104 fl (80-97); MONOCYTES % (AUTO) 7.6 % (3-13); PLATELET COUNT 139 10^3/uL (150-450); RED CELL DISTRIBUTION WIDTH 15.7 % (11.5-14.0); SEGMENTED NEUTROPHILS % (AUTO) 49.1 % (42-78); TOTAL CELLS COUNTED % (AUTO) 100 %; WHITE BLOOD COUNT 8.3 10^3/uL (4.0-10.5)
[2020-01-17 22:49] LABS: INTERNATIONAL RATION (INR) 1.02; PROTHROMBIN TIME 13.4 SEC (11.4-15.4)
[2020-01-17 22:57] LABS: BLOOD UREA NITROGEN 25 mg/dL (7-20); CALCIUM 9.4 mg/dL (8.4-10.2); GLUCOSE 85 mg/dL (75-110)
[2020-01-17 22:58] LABS: ALBUMIN 4.3 g/dL (3.5-5.0); ALKALINE PHOSPHATASE 117 U/L (38-126); ANION GAP 8 (5-19); ASPARTATE AMINO TRANSFERASE 22 U/L (17-59); BILIRUBIN,TOTAL 0.7 mg/dL (0.2-1.3); CARBON DIOXIDE 26 mmol/L (22-30); CHLORIDE 102 mmol/L (98-107); POTASSIUM 4.1 mmol/L (3.6-5.0); TOTAL PROTEIN 7.9 g/dL (6.3-8.2)
--- NOTE | 2020-01-17 23:20 | ER Document Report ---
ED Extremity Problem, Lower - General Chief Complaint: Leg Swelling Stated Complaint: RIGHT LEG SWELLING Time Seen by Provider: 01/17/20 21:24 Primary Care Provider: DOLORES ARBOLEDA PA [Primary Care Provider] - Follow up as needed Mode of Arrival: Wheelchair Information source: Patient Notes: 84-year-old male presented to ED for complaint of pain and swelling to the right leg. He states it started about 3 to 4 days ago. He denies any injuries recent travel or any other reason for him to have a swollen pink leg. Patient is alert oriented respirations regular nonlabored speaking in full sentences. He does have an extensive medical history. He does have a history of congestive heart failure DVTs to the left lower extremities [place] high blood pressure pulmonary embolism he also has a history of a stroke arthritis with a surgical history of a AAA repair cardiac catheterization with stents. He [facility]. TRAVEL OUTSIDE OF THE [place] IN LAST 30 DAYS: No - HPI Patient complains to provider of: Pain, Swelling. No: Injury Location: Leg, Thigh Occurred: Other - Right 3 to 4 days Where: Home Onset/Duration: Gradual Quality of pain: Achy, Sharp Severity: Moderate Pain Level: 3 Recent injury: No Associated symptoms: Painful ambulation, Other - Painful swollen leg Exacerbated by: Movement, Walking Relieved by: Nothing - Related Data Allergies/Adverse Reactions: No Known Allergies Allergy (Verified 11/10/17 17:32) Home Medications: can't remember meds Past Medical History - General Information source: Patient - Social History Smoking Status: Current Every Day Smoker - Cigars Frequency of alcohol use: Occasional Drug Abuse: None Lives with: Alone Family History: Hypertension Patient has homicidal ideation: No - Past Medical History Cardiac Medical History: Reports: Hx Congestive Heart Failure, Hx DVT - LLE, Hx Heart Attack, Hx Hypertension, Hx Pulmonary Embolism Pulmonary Medical History: Reports: None EENT Medical History: Reports: None Neurological Medical History: Reports: Hx Cerebrovascular Accident Endocrine Medical History: Reports: None Renal/ Medical History: Reports: None Malignancy Medical History: Reports None GI Medical History: Reports: None Musculoskeletal Medical History: Reports Hx Arthritis Skin Medical History: Reports None Psychiatric Medical History: Reports: None Traumatic Medical History: Reports: None Infectious Medical History: Reports: None Past Surgical History: Reports: Hx Abdominal Surgery - AAA, Hx Cardiac Catheterization - with stent placement, Hx Cardiac Surgery - Cardiac Stent, Hx Vascular Surgery - AAA repair - Immunizations Hx Diphtheria, Pertussis, Tetanus Vaccination: No - Unknown Review of Systems - Review of Systems Constitutional: No symptoms reported EENT: No symptoms reported Cardiovascular: No symptoms reported Respiratory: No symptoms reported Gastrointestinal: No symptoms reported Genitourinary: No symptoms reported Male Genitourinary: No symptoms reported Musculoskeletal: Leg swelling - Pain and swelling Skin: No symptoms reported Hematologic/Lymphatic: No symptoms reported Neurological/Psychological: No symptoms reported -: Yes All other systems reviewed and negative Physical Exam - Vital signs Vitals: Temp Pulse Resp BP Pulse Ox 97.9 F 57 L 16 110/51 L 98 01/17/20 18:39 01/17/20 18:39 01/17/20 18:39 01/17/20 18:39 01/17/20 18:39 Interpretation: Normal - General General appearance: Appears well, Alert - HEENT Head: Normocephalic, Atraumatic Eyes: Normal Pupils: PERRL - Respiratory Respiratory status: No respiratory distress Chest status: Nontender Breath sounds: Normal Chest palpation: Normal - Cardiovascular Rhythm: Regular Heart sounds: Normal auscultation Murmur: No - Abdominal Inspection: Normal Distension: No distension Bowel sounds: Normal Tenderness: Nontender Organomegaly: No organomegaly - Back Back: Normal, Nontender - Extremities General upper extremity: Normal inspection, Nontender, Normal color, Normal ROM, Normal temperature General lower extremity: Normal temperature, Normal weight bearing. No: Gaudencio's sign - Neurological Neuro grossly intact: Yes Cognition: Normal Orientation: AAOx4 Mary Coma Scale Eye Opening: Spontaneous Mary Coma Scale Verbal: Oriented Mary Coma Scale Motor: Obeys Commands Mary Coma Scale Total: 15 Speech: Normal Motor strength normal: LUE, RUE, LLE, RLE Sensory: Normal - Psychological Associated symptoms: Normal affect, Normal mood - Skin Skin Temperature: Warm Skin Moisture: Dry Skin Color: Normal Course - Re-evaluation Re-evalutation: 01/17/20 23:50 Discussed assessment labs and venous Doppler with Dr. Banerjee the hospitalist. He did agree to accept the patient for admission to medical floor. He stated he would start the patient on Eliquis until therapeutic and then discharged home. [facility] '[facility]. - Vital Signs Vital signs: Temp Pulse Resp BP Pulse Ox 97.9 F 57 L 16 110/51 L 98 01/17/20 19:14 01/17/20 18:39 01/17/20 18:39 01/17/20 18:39 01/17/20 18:39 - Laboratory Result Diagrams: 01/17/20 22:25 01/17/20 22:25 Laboratory results interpreted by me: 01/17/20 01/17/20 22:25 22:25 MCV 104 H MCH 35.9 H RDW 15.7 H Plt Count 139 L Sodium 135.7 L BUN 25 H - Diagnostic Test Radiology reviewed: Image reviewed, Reports reviewed Discharge - Discharge Clinical Impression: painful dvt right lower extremity Disposition: ADMITTED INPATIENT Admitting Provider: Chriss (Hospitalist) Unit Admitted: Medical Floor Referrals: DOLORES ARBOLEDA PA [Primary Care Provider] - Follow up as needed
[2020-01-17 23:30] LABS: APPEARANCE,URINE CLEAR; BILIRUBIN,URINE NEGATIVE (NEGATIVE); COLOR,URINE YELLOW; GLUCOSE, URINE NEGATIVE (NEGATIVE); KETONES,URINE NEGATIVE (NEGATIVE); LEUKOCYTE ESTERASE,URINE NEGATIVE (NEGATIVE); NITRITE,URINE NEGATIVE (NEGATIVE); PROTEIN,URINE NEGATIVE (NEGATIVE); URINE SPECIFIC GRAVITY 1.011; UROBILINOGEN,URINE NEGATIVE mg/dL (<2.0)
[2020-01-18] MEDS ORDERED: LEVALBUTEROL HCL NEB 0.63 MG/3 ML AMPUL NEB PRN (00:32)
[2020-01-18] MEDS ORDERED: MAG HYDROX/AL HYDROX/SIMETH SUSP 30 ML UDCUP PO PRN (00:32)
[2020-01-18] MEDS ORDERED: ONDANSETRON HCL INJ/PF 4 MG/2 ML SDV IV PRN (00:32)
[2020-01-18] MEDS ORDERED: MAGNESIUM HYDROXIDE SUSP 30 ML UDCUP PO PRN (00:32)
[2020-01-18] MEDS ORDERED: ACETAMINOPHEN 325 MG TABLET PO PRN (00:38)
[2020-01-18] MEDS ORDERED: METOPROLOL TARTRATE PF/INJ 5 MG/5 ML SDV IV PRN (00:39)
[2020-01-18] MEDS ORDERED: DIAZEPAM INJ 10 MG/2 ML DISP.SYRIN IV PRN (00:39)
[2020-01-18] MEDS ORDERED: HYDRALAZINE HCL INJ/PF 20 MG/1 ML SDV IV PRN (00:39)
[2020-01-18] MEDS ORDERED: GUAIFENESIN SYRP 200 MG/10 ML UDC PO PRN (00:39)
[2020-01-18] MEDS ORDERED: MORPHINE SULFATE 10 MG/ML INJ IV PRN ×3 (00:39)
[2020-01-18] MEDS ORDERED: NICOTINE 21 MG/24 HR PATCH.TD24 TD PRN (00:39)
[2020-01-18] MEDS: APIXABAN 5 MG TABLET PO SCH ×3 (01:15→17:11)
[2020-01-18] MEDS: DIAZEPAM 5 MG TABLET PO SCH ×5 (01:15→23:03)
--- NOTE | 2020-01-18 01:58 | PDOC H&P ---
History of Present Illness Admission Date/PCP: 01/17/2020 23:34 BONNIE PAULINO Patient complains of: Right leg pain History of Present Illness: HEIDI HEREDIA JR is a 84 year old male who presents the emergency room with a 4- day history of a painful right leg. He admits the gradual development of constant achy pain in his right lower extremity beginning 4 days ago and progressively worsening with the pain becoming moderately intense. The nonradiating pain has been accompanied by swelling, redness and increased warmth of the right lower extremity. The pain is worsened by weightbearing and movements of the foot and ankle. He admits prior similar symptoms with a DVT in his left lower extremity. He claims he is taking Coumadin as a "blood thinner". He denies other associated or accompanying signs and symptoms. He denies identification of any additional aggravating or ameliorating factors for his right leg pain. In the emergency room he was found to have a DVT of the right lower extremity and a non-therapeutic INR. Because of his "living alone" status and his inability to ambulate without severe pain he was admitted to the hospital for further evaluation and initial treatment. Past Medical History Cardiac Medical History: Reports: Congestive Heart Failure, Coronary Artery Disease, DVT - LLE, Myocardial Infarction, Hypertension, Pulmonary Embolism Denies: Hyperlipidema Pulmonary Medical History: Denies: Asthma, Chronic Obstructive Pulmonary Disease (COPD), Sleep Apnea EENT Medical History: Denies: Cataracts, Ears - Hearing aids Neurological Medical History: Reports: Ischemic CVA Denies: Hemorrhagic CVA, Seizures Endocrine Medical History: Reports: Diabetes Mellitus Type 2 - Borderline, Obesity Denies: Diabetes Mellitus Type 1, Hyperthyroidism, Hypothyroidism Renal/ Medical History: Denies: Chronic Kidney Disease, Nephrolithiasis Malignancy Medical History: Reports: None GI Medical History: Reports: None Denies: Cirrhosis, Crohn's Disease, Gastroesophageal Reflux Disease, Hepatitis, Peptic Ulcer Disease, Ulcerative Colitis Musculoskeltal Medical History: Reports: Arthritis Denies: Gout Skin Medical History: Reports: Eczema Denies: Psoriasis Psychiatric Medical History: Reports: Alcohol Dependency, Tobacco Dependency Denies: Depression, Substance Abuse Traumatic Medical History: Reports: None Hematology: Reports: Other - Chronic thrombocytopenia Denies: Anemia, Bleeding Tendencies Infectious Medical History: Reports: None Past Surgical History Past Surgical History: Reports: Cardiac Catheterization, Coronary Stent, Orthop edic Surgery, Vascular Surgery - AAA repair Social History Information Source: Patient Lives with: Alone Smoking Status: Current Every Day Smoker - Cigars Electronic Cigarette use?: No Frequency of Alcohol Use: Heavy - At least a quart of whiskey per week Hx Recreational Drug Use: No Drugs: None Hx Prescription Drug Abuse: No - Advance Directive Resuscitation Status: Full Code Surrogate healthcare decision maker:: Bruno Drew Family History Family History: Hypertension Parental Family History Reviewed: Yes Children Family History Reviewed: No Sibling(s) Family History Reviewed.: Yes Medication/Allergy Home Medications: Atorvastatin Calcium [Lipitor 10 mg Tablet] 20 mg PO QHS 03/25/17 Lisinopril [Zestril] 20 mg PO DAILY 03/25/17 Thiamine HCl [Thiamine 100 mg Tablet] 100 mg PO DAILY #90 tablet 03/26/17 Allopurinol [Zyloprim 100 mg Tablet] 100 mg PO DAILY 01/18/20 Carbidopa/Levodopa [Sinemet 25-100 mg Tablet] 1 each PO TID 01/18/20 Diazepam [Valium 2 mg Tablet] 2 mg PO DAILYP PRN 01/18/20 Folic Acid [Folvite 1 mg Tablet] 1 mg PO BID 01/18/20 Furosemide [Lasix 40 mg Tablet] 40 mg PO QAM 01/18/20 Metoprolol Succinate [Toprol Xl] 50 mg PO DAILY 01/18/20 Allergies/Adverse Reactions: No Known Allergies Allergy (Verified 01/18/20 00:11) Review of Systems Constitutional: ABSENT: chills, fever(s) Eyes: ABSENT: visual disturbances, other - Eye pain Ears: ABSENT: hearing changes, other - ear pain Nose, Mouth, and Throat: ABSENT: headache(s), sore throat Cardiovascular: PRESENT: edema. ABSENT: chest pain, palpitations Respiratory: ABSENT: cough, dyspnea Gastrointestinal: ABSENT: abdominal pain, constipation, diarrhea, nausea, vomiting Genitourinary: ABSENT: dysuria, hematuria Musculoskeletal: PRESENT: as per HPI, other - Painful swelling with redness and increased warmth of right lower extremity. ABSENT: back pain, joint swelling, muscle weakness Integumentary: ABSENT: diaphoresis, pruritus, rash Neurological: ABSENT: confusion, convulsions, focal weakness, memory loss, syncope Psychiatric: ABSENT: anxiety, depression Endocrine: ABSENT: cold intolerance, heat intolerance, polydipsia, polyphagia, polyuria Hematologic/Lymphatic: ABSENT: easy bleeding, easy bruising Allergic/Immunologic: ABSENT: seasonal rhinorrhea Physical Exam Vital Signs: Temp Pulse Resp BP Pulse Ox 97.9 F 57 L 16 110/51 L 98 01/17/20 19:14 01/17/20 18:39 01/17/20 18:39 01/17/20 18:39 01/17/20 18:39 Intake & Output 01/15/20 01/16/20 01/17/20 23:59 23:59 23:59 Weight 63.503 kg General appearance: PRESENT: cooperative, mild distress - Secondary to right lower extremity pain Head exam: PRESENT: atraumatic, normocephalic Eye exam: PRESENT: conjunctiva pink. ABSENT: conjunctival injection, scleral icterus Ear exam: PRESENT: normal external ear exam. ABSENT: bleeding, drainage Mouth exam: PRESENT: dry mucosa, neck supple Neck exam: ABSENT: thyromegaly, tracheal deviation Respiratory exam: PRESENT: symmetrical, unlabored, wheezes - Mild expiratory wheezes all k[place] Cardiovascular exam: PRESENT: RRR. ABSENT: clicks, gallop, rubs Pulses: PRESENT: normal carotid pulses, normal radial pulses Vascular exam: PRESENT: normal capillary refill. ABSENT: pallor GI/Abdominal exam: PRESENT: normal bowel sounds, soft Rectal exam: PRESENT: deferred Extremities exam: PRESENT: +1 edema - Right lower extremity, other - Mild erythema and increased warmth of the right lower extremity from the distal thigh to the ankle with tenderness to palpation. ABSENT: joint swelling Musculoskeletal exam: ABSENT: deformity, dislocation Neurological exam: PRESENT: alert, oriented to person, oriented to place, oriented to time, oriented to situation, CN II-XII grossly intact. ABSENT: motor sensory deficit Psychiatric exam: PRESENT: appropriate affect, normal mood Skin exam: PRESENT: dry, intact, warm. ABSENT: jaundice, rash, urticaria Results Laboratory Results: 01/17/20 22:25 01/17/20 22:25 01/17/20 01/17/20 01/17/20 22:25 22:25 22:25 WBC 8.3 RBC 4.40 Hgb 15.8 Hct 45.5 MCV 104 H MCH 35.9 H MCHC 34.7 RDW 15.7 H Plt Count 139 L Seg Neutrophils % 49.1 Sodium 135.7 L Potassium 4.1 Chloride 102 Carbon Dioxide 26 Anion Gap 8 BUN 25 H Creatinine 1.03 Est GFR ( Amer) > 60 Glucose 85 Calcium 9.4 Total Bilirubin 0.7 AST 22 Alkaline Phosphatase 117 Total Protein 7.9 Albumin 4.3 Urine Color YELLOW Urine Appearance CLEAR Urine pH 5.0 Ur Specific [place] 1.011 Urine Protein NEGATIVE Urine Glucose (UA) NEGATIVE Urine Ketones NEGATIVE Urine Blood NEGATIVE Urine Nitrite NEGATIVE Ur Leukocyte Esterase NEGATIVE Urine WBC (Auto) 1 Urine RBC (Auto) 0 Impressions: Venous Doppler Study 01/17/20 19:57 IMPRESSION: Acute occlusive DVT extending from the right common femoral vein to the superficial femoral vein. Nonocclusive DVT at the right popliteal vein. Assessment and Plan - Diagnosis (1) Dvt femoral (deep venous thrombosis) Qualifiers: Chronicity: acute Laterality: right Qualified Code(s): I82.411 - Acute embolism and thrombosis of right femoral vein Is this a current diagnosis for this admission?: Yes (2) Noncompliance Is this a current diagnosis for this admission?: Yes (3) Alcohol abuse, continuous Is this a current diagnosis for this admission?: Yes (4) COPD (chronic obstructive pulmonary disease) Qualifiers: COPD type: unspecified COPD Qualified Code(s): J44.9 - Chronic obstructive pulmonary disease, unspecified Is this a current diagnosis for this admission?: Yes (5) CAD (coronary artery disease) Qualifiers: Coronary Disease-Associated Artery/Lesion type: [place] artery [place] vs. transplanted heart: [place] heart Associated angina: without angina Qualified Code(s): I25.10 - Atherosclerotic heart disease of [place] coronary artery without angina pectoris Is this a current diagnosis for this admission?: Yes (6) History of CVA (cerebrovascular accident) Is this a current diagnosis for this admission?: Yes (7) History of abdominal aortic aneurysm repair Is this a current diagnosis for this admission?: Yes (8) History of pulmonary embolism Is this a current diagnosis for this admission?: Yes (9) Tobacco dependency Is this a current diagnosis for this admission?: Yes - Plan Summary Summary: Patient will be admitted to the medical floor where he will receive routine supportive and symptomatic cares. He will use morphine sulfate 2 to 4 mg IV every 2 hours as needed for pain utilizing a sliding scale for dosing. He will use Valium 10 mg p.o. every 6 hours as baseline prophylaxis for alcohol withdrawal. He will also have available Valium 10 mg IV every hour as needed severe withdrawal symptoms. He will be started on Eliquis 5 mg p.o. twice daily. A social worker palliative care consultation will be obtained for discharge planning. Patient will be on a cardiac diet. - Time Time Spent with patient: 15-24 minutes Smoking Cessation Education: 3 to 10 minutes Medications reviewed and adjusted accordingly: Yes Anticipated discharge: Home with Homehealth - Inpatient Certification Based on my medical assessment, after consideration of the patient's comorbidities, presenting symptoms, or acuity I expect that the services needed warrant INPATIENT care.: Yes I certify that my determination is in accordance with my understanding of Medicare's requirements for reasonable and necessary INPATIENT services [42 CFR 412.3e].: Yes Medical Necessity: Need Close Monitoring Due to Risk of Patient Decompensation, Need for Pain Control
[2020-01-18] MEDS: FAMOTIDINE 20 MG TABLET PO SCH ×2 (09:01→21:21)
[2020-01-18] MEDS: DOCUSATE SODIUM 100 MG CAPSULE PO SCH ×2 (09:01→17:12)
--- NOTE | 2020-01-18 14:37 | PDOC PROGRESS REPORT ---
Subjective Progress Note for:: 01/18/20 Subjective:: Patient sleeping quietly. Reason For Visit: + DVT Physical Exam Vital Signs: Temp Pulse Resp BP Pulse Ox 97.8 F 57 L 16 129/58 H 96 01/18/20 10:55 01/18/20 10:55 01/18/20 10:55 01/18/20 10:55 01/18/20 10:55 Intake & Output 01/17/20 01/18/20 01/19/20 06:59 06:59 06:59 Intake Total 240 Output Total 175 650 Balance -175 -410 Weight 63.5 kg General appearance: PRESENT: no acute distress, other - Elderly gentleman Head exam: PRESENT: atraumatic, normocephalic Eye exam: ABSENT: scleral icterus Neck exam: ABSENT: carotid bruit, JVD, lymphadenopathy, thyromegaly Respiratory exam: PRESENT: clear to auscultation percy. ABSENT: rales, rhonchi, wheezes Cardiovascular exam: PRESENT: RRR, +S1, +S2. ABSENT: diastolic murmur, rubs, systolic murmur Pulses: PRESENT: normal dorsalis pedis pul Vascular exam: PRESENT: normal capillary refill GI/Abdominal exam: PRESENT: normal bowel sounds, soft. ABSENT: distended, guarding, mass, organolmegaly, rebound, tenderness Rectal exam: PRESENT: deferred Extremities exam: PRESENT: calf tenderness, full ROM, +1 edema, other - Mild erythema and swelling from the distal thigh to the ankle with mild tenderness to palpation. ABSENT: clubbing, pedal edema Neurological exam: PRESENT: oriented to situation, other - Sleeping, arousable although falls back to sleep. ABSENT: motor sensory deficit Psychiatric exam: PRESENT: normal mood. ABSENT: homicidal ideation, suicidal ideation Skin exam: PRESENT: dry, intact, warm. ABSENT: cyanosis, rash Results Laboratory Results: 01/17/20 22:25 01/17/20 22:25 01/17/20 01/17/20 01/17/20 22:25 22:25 22:25 WBC 8.3 RBC 4.40 Hgb 15.8 Hct 45.5 MCV 104 H MCH 35.9 H MCHC 34.7 RDW 15.7 H Plt Count 139 L Seg Neutrophils % 49.1 Sodium 135.7 L Potassium 4.1 Chloride 102 Carbon Dioxide 26 Anion Gap 8 BUN 25 H Creatinine 1.03 Est GFR ( Amer) > 60 Glucose 85 Calcium 9.4 Total Bilirubin 0.7 AST 22 Alkaline Phosphatase 117 Total Protein 7.9 Albumin 4.3 Urine Color YELLOW Urine Appearance CLEAR Urine pH 5.0 Ur Specific [place] 1.011 Urine Protein NEGATIVE Urine Glucose (UA) NEGATIVE Urine Ketones NEGATIVE Urine Blood NEGATIVE Urine Nitrite NEGATIVE Ur Leukocyte Esterase NEGATIVE Urine WBC (Auto) 1 Urine RBC (Auto) 0 Impressions: Venous Doppler Study 01/17/20 19:57 IMPRESSION: Acute occlusive DVT extending from the right common femoral vein to the superficial femoral vein. Nonocclusive DVT at the right popliteal vein. Assessment and Plan - Diagnosis (1) Alcohol abuse, continuous Is this a current diagnosis for this admission?: Yes (2) Deep venous thrombosis Qualifiers: DVT location: lower extremity Affected thrombotic vein of extremity: fem oral Chronicity: acute Laterality: right Qualified Code(s): I82.411 - Acute embolism and thrombosis of right femoral vein Is this a current diagnosis for this admission?: Yes Plan: Patient will be placed on Eliquis at 10 mg twice a day for 7 days after which he should be decreased to 5 mg twice a day. He does not meet the criteria for dose reduction. Although his older than 80 his weight is more than 60 kg and his kidney function is within normal (3) Noncompliance Is this a current diagnosis for this admission?: Yes - Plan Summary Summary: Patient will be admitted to the medical floor where he will receive routine supportive and symptomatic cares. He will use morphine sulfate 2 to 4 mg IV every 2 hours as needed for pain utilizing a sliding scale for dosing. He will use Valium 10 mg p.o. every 6 hours as baseline prophylaxis for alcohol withdrawal. He will also have available Valium 10 mg IV every hour as needed severe withdrawal symptoms. He will be started on Eliquis 5 mg p.o. twice daily. A social studies teacher consultation will be obtained for discharge planning. Patient will be on a cardiac diet.
[2020-01-19] MEDS: DIAZEPAM 5 MG TABLET PO SCH ×3 (05:43→16:59)
[2020-01-19 06:26] LABS: HEMATOCRIT 38.3 % (37.9-51.0); MEAN CORPUSCULAR HEMOGLOBIN 35.7 pg (27.0-33.4); MEAN CORPUSCULAR HGB CONC 34.7 g/dL (32.0-36.0); MEAN CORPUSCULAR VOLUME 103 fl (80-97); PLATELET COUNT 125 10^3/uL (150-450); RED BLOOD COUNT 3.73 10^6/uL (4.35-5.55); RED CELL DISTRIBUTION WIDTH 15.3 % (11.5-14.0); WHITE BLOOD COUNT 6.4 10^3/uL (4.0-10.5)
[2020-01-19 06:29] LABS: HEMOGLOBIN 13.3 g/dL (13.5-17.0)
[2020-01-19 06:41] LABS: BLOOD UREA NITROGEN 17 mg/dL (7-20); CALCIUM 8.9 mg/dL (8.4-10.2); CHOLESTEROL 132.64 mg/dL (0-200); GLUCOSE 105 mg/dL (75-110); TRIGLYCERIDES 111 mg/dL (<150)
[2020-01-19 06:47] LABS: CARBON DIOXIDE 26 mmol/L (22-30); CHLORIDE 105 mmol/L (98-107)
[2020-01-19 06:49] LABS: ANION GAP 4 (5-19)
[2020-01-19 06:51] LABS: DIRECT LDL 76 mg/dL (<100)
[2020-01-19 06:57] LABS: FREE T3 4.29 pg/mL (2.77-5.27)
[2020-01-19 07:11] LABS: THYROID STIMULATING HORMONE 5.92 uIU/mL (0.47-4.68)
[2020-01-19 08:10] VITALS: BP 121/55
[2020-01-19] MEDS: APIXABAN 5 MG TABLET PO SCH ×2 (09:24→16:59)
[2020-01-19] MEDS: DOCUSATE SODIUM 100 MG CAPSULE PO SCH ×2 (09:25→16:59)
[2020-01-19] MEDS: FAMOTIDINE 20 MG TABLET PO SCH (09:25)
--- NOTE | 2020-01-19 10:49 | EKG REPORT ---
SEVERITY:- ABNORMAL ECG - ATRIAL FIBRILLATION FLUTTER IVCD, CONSIDER ATYPICAL LBBB : Confirmed by: Jamin Lilly 19-Jan-2020 10:48:22
--- NOTE | 2020-01-19 13:54 | PDOC DISCHARGE SUMMARY ---
Impression - Admit/DC Date/PCP Admission Date/Primary Care Provider: 01/17/20 23:50 BONNIE PAULINO Discharge Date: 01/19/20 - Discharge Diagnosis (1) Alcohol abuse, continuous Is this a current diagnosis for this admission?: Yes (2) Deep venous thrombosis Is this a current diagnosis for this admission?: Yes (3) Noncompliance Is this a current diagnosis for this admission?: Yes - Assessment Summary: Patient will be admitted to the medical floor where he will receive routine sup portive and symptomatic cares. He will use morphine sulfate 2 to 4 mg IV every 2 hours as needed for pain utilizing a sliding scale for dosing. He will use Valium 10 mg p.o. every 6 hours as baseline prophylaxis for alcohol withdrawal. He will also have available Valium 10 mg IV every hour as needed severe withdrawal symptoms. He will be started on Eliquis 5 mg p.o. twice daily. A social work specialist consultation will be obtained for discharge planning. Patient will be on a cardiac diet. - Additional Information Resuscitation Status: Full Code Discharge Diet: As Tolerated Discharge Activity: Activity As Tolerated Referrals: [facility] [Provider Group] (Patient to call [facility] to schedule an appt.) Prescriptions: Apixaban [Eliquis 5 mg Tablet] 5 mg PO BID #60 tablet Apixaban [Eliquis 5 mg Tablet] 10 mg PO BID #20 tablet Home Medications: Atorvastatin Calcium [Lipitor 10 mg Tablet] 20 mg PO QHS 03/25/17 Lisinopril [Zestril] 20 mg PO DAILY 03/25/17 Thiamine HCl [Thiamine 100 mg Tablet] 100 mg PO DAILY #90 tablet 03/26/17 Allopurinol [Zyloprim 100 mg Tablet] 100 mg PO DAILY 01/18/20 Carbidopa/Levodopa [Sinemet 25-100 mg Tablet] 1 each PO TID 01/18/20 Diazepam [Valium 2 mg Tablet] 2 mg PO DAILYP PRN 01/18/20 Folic Acid [Folvite 1 mg Tablet] 1 mg PO BID 01/18/20 Furosemide [Lasix 40 mg Tablet] 40 mg PO QAM 01/18/20 Metoprolol Succinate [Toprol Xl] 50 mg PO DAILY 01/18/20 Apixaban [Eliquis 5 mg Tablet] 5 mg PO BID #60 tablet 01/19/20 Apixaban [Eliquis 5 mg Tablet] 10 mg PO BID #20 tablet 01/19/20 History of Present Illiness History of Present Illness: HEIDI HEREDIA JR is a 84 year old male Patient was admitted with a history of painful right leg. He was found to have a deep venous thrombosis despite the fact that he was supposed to have been on an anticoagulant. Patient apparently is not compliant with his anticoagulant. He had difficulty ambulating and because of his DVT and difficulty ambulating he was admitted. Hospital Course Hospital Course: Patient was started on Eliquis. He has remained hemodynamically stable. Patient states that he has not ambulated in years and generally gets around in his wheelchair. He has a lady that lives close to him the number he takes care of his needs. Patient treated for acute embolism and thrombosis of the right femoral vein and educated on the need to be compliant with his medications. As he has remained stable in the hospital well with no further interventions being planned patient is been discharged home for outpatient follow-up. marketing planner reached out to the Ms. Rajendra Syed who confirms the arrangement and as it was deemed that patient has no need for any further help he has been discharged home to his prior arrangements Physical Exam Vital Signs: Temp Pulse Resp BP Pulse Ox 97.8 F 68 17 121/55 L 98 01/19/20 11:00 01/19/20 11:00 01/19/20 11:00 01/19/20 11:00 01/19/20 11:00 Intake & Output 01/18/20 01/19/20 01/20/20 06:59 06:59 06:59 Intake Total 1920 480 Output Total 175 1800 210 Balance -175 120 270 Weight 63.5 kg 91.6 kg General appearance: PRESENT: no acute distress, well-developed, well-nourished Head exam: PRESENT: atraumatic, normocephalic Eye exam: PRESENT: conjunctiva pink, PERRLA. ABSENT: scleral icterus Mouth exam: PRESENT: tongue midline Neck exam: ABSENT: carotid bruit, JVD, lymphadenopathy, thyromegaly Respiratory exam: PRESENT: clear to auscultation percy. ABSENT: rales, rhonchi, wheezes Cardiovascular exam: PRESENT: RRR, +S1, +S2. ABSENT: diastolic murmur, rubs, systolic murmur Pulses: PRESENT: normal dorsalis pedis pul Vascular exam: PRESENT: normal capillary refill GI/Abdominal exam: PRESENT: normal bowel sounds, soft. ABSENT: distended, guarding, mass, organolmegaly, rebound, tenderness Rectal exam: PRESENT: deferred Extremities exam: PRESENT: full ROM. ABSENT: calf tenderness, clubbing, pedal edema Neurological exam: PRESENT: alert, awake, oriented to person, oriented to place, oriented to time, oriented to situation Psychiatric exam: PRESENT: appropriate affect, normal mood. ABSENT: homicidal ideation, suicidal ideation Skin exam: PRESENT: dry, intact, warm. ABSENT: cyanosis, rash Results Laboratory Results: WBC 6.4 10^3/uL (4.0-10.5) 01/19/20 05:50 RBC 3.73 10^6/uL (4.35-5.55) L 01/19/20 05:50 Hgb 13.3 g/dL (13.5-17.0) L D 01/19/20 05:50 Hct 38.3 % (37.9-51.0) 01/19/20 05:50 MCV 103 fl (80-97) H 01/19/20 05:50 MCH 35.7 pg (27.0-33.4) H 01/19/20 05:50 MCHC 34.7 g/dL (32.0-36.0) 01/19/20 05:50 RDW 15.3 % (11.5-14.0) H 01/19/20 05:50 Plt Count 125 10^3/uL (150-450) L 01/19/20 05:50 Lymph % (Auto) 38.2 % (13-45) 01/17/20 22:25 Powell % (Auto) 7.6 % (3-13) 01/17/20 22:25 Eos % (Auto) 4.1 % (0-6) 01/17/20 22:25 Baso % (Auto) 1.0 % (0-2) 01/17/20 22:25 Absolute Neuts (auto) 4.1 10^3/uL (1.7-8.2) 01/17/20 22:25 Absolute Lymphs (auto) 3.2 10^3/uL (0.5-4.7) 01/17/20 22:25 Absolute Monos (auto) 0.6 10^3/uL (0.1-1.4) 01/17/20 22:25 Absolute Eos (auto) 0.3 10^3/uL (0.0-0.6) 01/17/20 22:25 Absolute Basos (auto) 0.1 10^3/uL (0.0-0.2) 01/17/20 22:25 Seg Neutrophils % 49.1 % (42-78) 01/17/20 22:25 PT 13.4 SEC (11.4-15.4) 01/17/20 22:25 INR 1.02 01/17/20 22:25 APTT 25.0 SEC (23.5-35.8) 01/17/20 22:25 Sodium 135.2 mmol/L (137-145) L 01/19/20 05:50 Potassium 4.0 mmol/L (3.6-5.0) 01/19/20 05:50 Chloride 105 mmol/L (98-107) 01/19/20 05:50 Carbon Dioxide 26 mmol/L (22-30) 01/19/20 05:50 Anion Gap 4 (5-19) L 01/19/20 05:50 BUN 17 mg/dL (7-20) 01/19/20 05:50 Creatinine 0.85 mg/dL (0.52-1.25) 01/19/20 05:50 Est GFR ( Amer) > 60 (>60) 01/19/20 05:50 Est GFR (MDRD) Non-Af > 60 (>60) 01/19/20 05:50 Glucose 105 mg/dL (75-110) 01/19/20 05:50 Hemoglobin A1c % 5.2 % (4.7-6.0) 01/19/20 05:50 Calcium 8.9 mg/dL (8.4-10.2) 01/19/20 05:50 Magnesium 1.9 mg/dL (1.6-2.3) 01/19/20 05:50 Total Bilirubin 0.7 mg/dL (0.2-1.3) 01/17/20 22:25 Direct Bilirubin 0.0 mg/dL (0.0-0.4) 01/17/20 22:25 Neonat Total Bilirubin Not Reportable 05/15/20 22:25 Neonat Direct Bilirubin Not Reportable 01/17/20 22:25 Neonat Indirect Bili Not Reportable 01/17/20 22:25 AST 22 U/L (17-59) 01/17/20 22:25 ALT 9 U/L (<50) 01/17/20 22:25 Alkaline Phosphatase 117 U/L (38-126) 01/17/20 22:25 Total Protein 7.9 g/dL (6.3-8.2) 01/17/20 22:25 Albumin 4.3 g/dL (3.5-5.0) 01/17/20 22:25 Triglycerides 111 mg/dL (<150) 01/19/20 05:50 Cholesterol 132.64 mg/dL (0-200) 01/19/20 05:50 LDL Cholesterol Direct 76 mg/dL (<100) 01/19/20 05:50 VLDL Cholesterol 22.0 mg/dL (10-31) 01/19/20 05:50 HDL Cholesterol 45 mg/dL (>40) 01/19/20 05:50 TSH 5.92 uIU/mL (0.47-4.68) H 01/19/20 05:50 Free T3 pg/mL 4.29 pg/mL (2.77-5.27) 01/19/20 05:50 Urine Color YELLOW 01/17/20 22:25 Urine Appearance CLEAR 01/17/20 22:25 Urine pH 5.0 (5.0-9.0) 01/17/20 22:25 Ur Specific [place] 1.011 01/17/20 22:25 Urine Protein NEGATIVE mg/dL (NEGATIVE) 01/17/20 22:25 Urine Glucose (UA) NEGATIVE mg/dL (NEGATIVE) 01/17/20 22:25 Urine Ketones NEGATIVE mg/dL (NEGATIVE) 01/17/20 22:25 Urine Blood NEGATIVE (NEGATIVE) 01/17/20 22:25 Urine Nitrite NEGATIVE (NEGATIVE) 01/17/20 22:25 Urine Bilirubin NEGATIVE (NEGATIVE) 01/17/20 22:25 Urine Urobilinogen NEGATIVE mg/dL (<2.0) 01/17/20 22:25 Ur Leukocyte Esterase NEGATIVE (NEGATIVE) 01/17/20 22:25 Urine WBC (Auto) 1 /HPF 05/15/20 22:25 Urine RBC (Auto) 0 /HPF 01/17/20 22:25 U Hyaline Cast (Auto) 3 /LPF 01/17/20 22:25 Urine Bacteria (Auto) TRACE /HPF 01/17/20 22:25 Squamous Epi Cells Auto <1 /HPF 01/17/20 22:25 Urine Mucus (Auto) RARE /LPF 01/17/20 22:25 Urine Ascorbic Acid NEGATIVE (NEGATIVE) 01/17/20 22:25 Impressions: Venous Doppler Study 01/17/20 19:57 IMPRESSION: Acute occlusive DVT extending from the right common femoral vein to the superficial femoral vein. Nonocclusive DVT at the right popliteal vein. Plan Time Spent: Less than 30 Minutes Stroke Is this a Stroke Patient?: No Acute Heart Failure - Is this a Heart Failure Patient?: No
== END 2020-01-19 17:12 | disposition home or self-care (01) ==
LOC: ER 18:33 → EH 23:50 → INTOOBSV 23:50 → 4N 01-18 00:56
PROVIDERS: ADMIT Emergency Medicine; ATTEND Internal Medicine
DX: I82.411 Acute embolism and thrombosis of right femoral vein (principal); F10.10 Alcohol abuse, uncomplicated; Z91.19 Patient's noncompliance with other medical treatment and regimen; I82.431 Acute embolism and thrombosis of right popliteal vein; I25.2 Old myocardial infarction; Z99.3 Dependence on wheelchair; M19.90 Unspecified osteoarthritis, unspecified site; F17.290 Nicotine dependence, other tobacco product, uncomplicated; I11.0 Hypertensive heart disease with heart failure; I50.9 Heart failure, unspecified; J44.9 Chronic obstructive pulmonary disease, unspecified; Z60.2 Problems related to living alone; I25.10 Atherosclerotic heart disease of native coronary artery without angina pectoris; R73.03 Prediabetes; Z95.5 Presence of coronary angioplasty implant and graft; Z86.73 Personal history of transient ischemic attack (TIA), and cerebral infarction without residual deficits; Z98.890 Other specified postprocedural states; Z86.711 Personal history of pulmonary embolism
CPT/HCPCS: 99406; 93005; 99285; 36415 ×2; 83735; 84443; 85025; 85027; 85610; 85730; 80048; 80053; 81001; 84481; 83036; 80061; 93971; 93010; G0378 ×2